=== PATIENT | female | born 1960 | race Caucasian/White ===

== ENCOUNTER 2018-08-11 14:24 | Outpatient (CLI) | payer MEDICARE | END 2018-08-11 14:25 | disposition home or self-care (01) | LOC: BICMAMMO 14:24 | PROVIDERS: ATTEND Family Medicine | DX: Z12.31 Encounter for screening mammogram for malignant neoplasm of breast (principal); R92.1 Mammographic calcification found on diagnostic imaging of breast | CPT/HCPCS: 77063; 77067 ==

== ENCOUNTER 2018-09-14 08:55 | Day surgery (SDC) | payer MEDICARE ==
[2018-09-13 13:06] VITALS: BMI 54.8
[2018-09-14] MEDS ORDERED: Dextrose 50% Abboject 50 ML SYRINGE ONE (10:25)
[2018-09-14 12:58] LABS: #Basophils 0.1 thou/uL (0.0-0.2); #Eosinphils 0.2 thou/uL (0.0-0.7); #Lymphocytes 1.6 thou/uL (1.20-3.40); #Monocytes 1.1 thou/uL (0.11-0.59); #Neutrophils 11.2 thou/uL (1.40-6.50); %Basophils 0.5 % (0.0-1.0); %Eosinophils 1.4 % (0.0-10.0); %Lymphocytes 11.2 % (21.0-51.0); %Monocytes 7.8 % (0.0-10.0); %Neutrophils 79.1 % (42.0-75.0); Hemoglobin 11.6 g/dL (12.0-16.0); Mean Corpuscular HGB CONC 30.3 g/dL (32.0-36.0); Mean Corpuscular Hemoglobin 25.5 pg (27.0-31.0); Mean Corpuscular Volume 84.2 fL (78.0-98.0); Mean Platelet Volume 6.9 fL (7.4-10.4); Platelet Count 240 thou/uL (130-400); RBC Distribution Width 16.1 % (11.5-14.5); Red Blood Cell (RBC) Count 4.55 mill/uL (4.20-5.40); White Blood Cell (WBC) Count 14.2 thou/uL (4.8-10.8)
[2018-09-14 13:08] LABS: Prothrombin Time 13.4 SEC (12.0-14.7)
[2018-09-14 13:21] LABS: ALT (SGPT) 21 U/L (8-55); AST (SGOT) 27 U/L (5-34); Albumin 3.7 g/dL (3.5-5.0); Alkaline Phosphatase 103 U/L (40-150); Anion Gap 15 mmol/L (10-20); BUN (Urea Nitrogen) 13 mg/dL (9.8-20.1); Bilirubin, Total 0.6 mg/dL (0.2-1.2); Calc. Creatinine Clearance 194 mL/min (70-130); Calcium 9.9 mg/dL (7.8-10.44); Carbon Dioxide 31 mmol/L (22-29); Chloride 100 mmol/L (98-107); Estimated GFR-MDRD 89; Globulin 3.5 g/dL (2.4-3.5); Glucose 85 mg/dL (70-105); Potassium 3.6 mmol/L (3.5-5.1); Protein, Total 7.2 g/dL (6.0-8.3); Sodium 142 mmol/L (136-145)
[2018-09-14] MEDS ORDERED: PROPOFOL 200 MG/20 ML VIAL ONE (13:52)
--- NOTE | 2018-09-14 19:04 | OP ---
DATE OF PROCEDURE: 09/14/2018 PREPROCEDURE DIAGNOSES: 1. Chronic reflux. 2. Prior history of colon polyps. Last colonoscopy was 8 years ago. 3. Diabetes. 4. Morbid obesity. POSTPROCEDURE DIAGNOSES: 1. Normal esophagogastroduodenoscopy. 2. Four colon polyps found in the descending and sigmoid colon ranging in size from 4 to 8 mm in size, all removed by hot snare polypectomy. RECOMMENDATIONS: 1. Repeat colonoscopy in 3 years. 2. Await histopathology. 3. Follow up in the office in regard to history of compensated cirrhosis and for hepatoma screening. ANESTHESIA: TIVA. PREP QUALITY: Moderate to just identify polyps greater than 5 mm. DESCRIPTION OF PROCEDURE: The patient was informed of the risks, benefits, and possible complications of endoscopy including perforation, reaction to medication and aspiration, and informed consent was obtained. The patient was brought to the endoscopy suite, where she was sedated in gradual fashion. Once she was comfortable, a bite block was placed into her oropharynx. The endoscope was advanced to the esophagus, stomach, and second and third portion of the duodenum and slowly removed. There was good visualized mucosa. There was no evidence of Key esophagus. There was small hiatal hernia. There was no evidence of esophagitis. The stomach was normal in forward and retroflexed views. The duodenum was normal at third portion. The scope was removed. The patient was turned to the room and rectal exam was performed. The endoscope was advanced through the anal canal through the colon to the cecum, which was identified by ileocecal valve and appendiceal orifice. The prep was fair. About a half a liter of sterile water was used to irrigate and clean the colon of residual liquid debris. The patient's body habitus made sedating the patient difficult and this turn did interfere some with visualization of the colon. Four polyps were identified in the descending to sigmoid colon from 4 to 8 mm in size, all removed by hot snare polypectomy and submitted to Pathology. Retroflexed views in the rectum were normal. The scope was removed. The patient tolerated the procedure well with no complications. Job ID: [id number]
== END 2018-09-14 13:40 | disposition home or self-care (01) ==
LOC: SDC 08:55
PROVIDERS: ATTEND Internal Medicine Gastroenterology
PROC: 0DJ08ZZ Inspection of Upper Intestinal Tract, Via Natural or Artificial Opening Endoscopic (ICD-10-PCS; principal; 2018-09-14)
PROC: 0DBM8ZX Excision of Descending Colon, Via Natural or Artificial Opening Endoscopic, Diagnostic (ICD-10-PCS; 2018-09-14)
PROC: 0DBN8ZX Excision of Sigmoid Colon, Via Natural or Artificial Opening Endoscopic, Diagnostic (ICD-10-PCS; 2018-09-14)
DX: Z12.11 Encounter for screening for malignant neoplasm of colon (principal); D12.4 Benign neoplasm of descending colon; K63.5 Polyp of colon; K21.9 Gastro-esophageal reflux disease without esophagitis; K44.9 Diaphragmatic hernia without obstruction or gangrene; E11.9 Type 2 diabetes mellitus without complications; K74.60 Unspecified cirrhosis of liver; E78.00 Pure hypercholesterolemia, unspecified; E07.9 Disorder of thyroid, unspecified; G89.29 Other chronic pain; M54.9 Dorsalgia, unspecified; M79.606 Pain in leg, unspecified; E66.01 Morbid (severe) obesity due to excess calories; Z68.43 Body mass index [BMI] 50.0-59.9, adult; Z86.010 Personal history of colon polyps; Z87.891 Personal history of nicotine dependence; Z79.4 Long term (current) use of insulin; Z79.899 Other long term (current) drug therapy; Z91.048 Other nonmedicinal substance allergy status
CPT/HCPCS: 36415; 36416; 80053; 82105; 85025; 85610; 88305; J2704

== ENCOUNTER 2018-10-07 09:28 | Outpatient (CLI) | payer MEDICARE ==
--- NOTE | 2018-10-07 11:32 | ULT ---
HEPATIC ULTRASOUND WITH VASCULAR DUPLEX INCLUDING COLOR AND SPECTRAL DOPPLER IMAGING: History: Cirrhosis. FINDINGS: Coarse echogenicity with some minimal surface nodularity that certainly could be consistent with cirr hosis. The gallbladder demonstrates no evidence of gallstones, wall thickening, edema, or pericholecy stic fluid. Common bile duct 0.3 cm. No intrahepatic ductal dilatation. Vascular flow with color and spectral doppler imaging demonstrates antegrade hepatic and portal venou s flow. Spleen is borderline in size. IMPRESSION: Coarse, somewhat nodular liver echogenicity which certainly could be consistent with concern for cirr hosis. No evidence for ascites. Unremarkable portal and hepatic venous flow. POS: TPC
== END 2018-10-07 09:29 | disposition home or self-care (01) ==
LOC: BICULT 09:28
PROVIDERS: ATTEND Internal Medicine Gastroenterology
DX: K74.60 Unspecified cirrhosis of liver (principal); R93.2 Abnormal findings on diagnostic imaging of liver and biliary tract
CPT/HCPCS: 76705

== ENCOUNTER 2019-01-20 23:21 | Inpatient (IN) | payer MEDICARE ==
[2019-01-20] MEDS ORDERED: Nitroglycerin 2% Ointment 1 INCH/1 GM Packet ONE (23:37)
[2019-01-21 01:43] VITALS: BMI 54.2
[2019-01-21 02:42] LABS: Hemoglobin 10.7 g/dL (12.0-16.0); Mean Corpuscular HGB CONC 30.2 g/dL (32.0-36.0); Mean Corpuscular Hemoglobin 24.3 pg (27.0-31.0); Mean Corpuscular Volume 80.6 fL (78.0-98.0); Mean Platelet Volume 8.4 fL (7.4-10.4); Platelet Count 189 thou/uL (130-400); RBC Distribution Width 17.6 % (11.5-14.5); Red Blood Cell (RBC) Count 4.38 mill/uL (4.20-5.40); White Blood Cell (WBC) Count 12.5 thou/uL (4.8-10.8)
[2019-01-21 02:52] LABS: ALT (SGPT) 11 U/L (8-55); AST (SGOT) 18 U/L (5-34); Albumin 3.3 g/dL (3.5-5.0); Alkaline Phosphatase 82 U/L (40-150); Anion Gap 10 mmol/L (10-20); BUN (Urea Nitrogen) 12 mg/dL (9.8-20.1); Bilirubin, Total 0.6 mg/dL (0.2-1.2); CK (CPK) 94 U/L (29-168); Calc. Creatinine Clearance 197 mL/min (70-130); Calcium 9.6 mg/dL (7.8-10.44); Carbon Dioxide 29 mmol/L (22-29); Chloride 106 mmol/L (98-107); Estimated GFR-MDRD Greater than 90; Globulin 2.9 g/dL (2.4-3.5); Glucose 120 mg/dL (70-105); Potassium 3.7 mmol/L (3.5-5.1); Protein, Total 6.2 g/dL (6.0-8.3); Sodium 141 mmol/L (136-145)
[2019-01-21 02:53] LABS: #Eosinphils 0.2 thou/uL (0.0-0.7); #Lymphocytes 1.4 thou/uL (1.20-3.40); #Monocytes 1.1 thou/uL (0.11-0.59); #Neutrophils 9.8 thou/uL (1.40-6.50); %Basophils 0.2 % (0.0-1.0); %Eosinophils 1.3 % (0.0-10.0); %Lymphocytes 11.5 % (21.0-51.0); %Monocytes 8.9 % (0.0-10.0); %Neutrophils 78.1 % (42.0-75.0); Elliptocytes SLIGHT = 2-5 cells (100X) (0-1/hpf); MDiff Complete? YES; Microcytosis SLIGHT = 6-15 cells (100X) (0-5/hpf); Platelet Morphology Comment Appears Adequate; Polychromasia SLIGHT = 2-3 cells (100X) (0-2/hpf)
[2019-01-21 03:07] LABS: Troponin I Less than 0.010 ng/mL (< 0.028)
[2019-01-21] MEDS ORDERED: Nitroglycerin 2% Ointment 1 INCH/1 GM Packet TOP SCH (06:00)
[2019-01-21] MEDS ORDERED: Dextrose 50% Abboject 50 ML SYRINGE SLOW IVP PRN (08:30)
[2019-01-21] MEDS ORDERED: Ondansetron PF 4 MG/2 ML Vial IVP PRN (08:30)
[2019-01-21] MEDS ORDERED: Dextrose 5% in Water 1,000 ML IV PRN (08:30)
[2019-01-21] MEDS ORDERED: hydrALAZINE 20 MG/ML VIAL SLOW IVP PRN (08:30)
[2019-01-21] MEDS ORDERED: Ondansetron ODT 4 MG TAB PO PRN (08:30)
--- NOTE | 2019-01-21 09:26 | HP ---
PRIMARY CARE PROVIDER: [facility] in [place], [place]. CHIEF COMPLAINT: Chest pain. HISTORY OF PRESENT ILLNESS: This is a 58-year-old female, who initially presented to [facility] complaining of chest pain of 1 day duration. The patient states the pain started in the left upper chest wall radiating into the shoulder region of left shoulder and scapula, worsening since onset. The patient denied any recent direct trauma, injury, increased cough, congestion, or fever. The patient denied any known personal history of coronary artery disease, but does state a history of diabetes mellitus type 2 on insulin as well as history of hepatitis C. The patient denied taking any specific alleviating medications without any particular adjustments to her positioning, relieving her symptoms. The patient initially stated the pain was 9/10, sudden in onset and constant. The patient denied any swelling to the left upper extremity, unilateral weakness, recent fever, travel history. In the emergency room, the patient underwent general evaluation including chest imaging showing no acute process. CT angiogram of the chest also was performed showing no evidence for pulmonary embolus with chronic changes in the lung mccarthy noted. The patient received aspirin and transdermal nitroglycerin and was referred to the Hospitalist Service for evaluation. PAST MEDICAL HISTORY: 1. Hepatitis C with compensated cirrhosis. 2. Chronic stress fractures of bilateral hips. 3. History of lower extremity wounds requiring long-term wound care. 4. Diabetes mellitus type 2, insulin requiring. 5. Hypertension. 6. Chronic back pain with spinal stenosis. PAST SURGICAL HISTORY: 1. Status post back surgery. 2. Status post bilateral shoulder repair. 3. Status post left knee repair. 4. Status post hysterectomy. 5. Status post right hip repair. 6. Status post exploratory laparotomy. CURRENT MEDICATIONS: 1. Enteric-coated aspirin 81 mg p.o. q.48 hours. 2. Lasix 40 mg p.o. b.i.d. 3. Neurontin 300 mg p.o. at bedtime. 4. NovoLog insulin sliding scale. 5. Glargine insulin 30 to 45 units subcutaneously b.i.d. 6. Levothyroxine 75 mcg p.o. daily. 7. Metformin 1000 mg p.o. b.i.d. 8. Multivitamin 1 tablet p.o. daily. 9. Klor-Con 20 mEq p.o. at bedtime. 10. Crestor 40 mg p.o. at bedtime. 11. Telmisartan 40 mg p.o. daily. ALLERGIES: TO ADHESIVE TAPE. FAMILY HISTORY: Positive for hypertension and diabetes mellitus. SOCIAL HISTORY: The patient resides in [place], [place]. No tobacco use, but does have a history of remote marijuana use. No alcohol or tobacco. Ambulatory with a rolling walker or wheelchair. REVIEW OF SYSTEMS: CONSTITUTIONAL: Negative for weight loss or gain, ability to conduct usual activities. SKIN: Negative for rash, itching. EYES: Negative for double vision, pain. ENT/MOUTH: Negative for nose bleeding, neck stiffness, pain, tenderness. CARDIOVASCULAR: Negative for palpitations, dyspnea on exertion, orthopnea. RESPIRATORY: Negative for shortness of breath, wheezing, cough, hemoptysis, fever or night sweats. GASTROINTESTINAL: Negative for poor appetite, abdominal pain, heartburn, nausea, vomiting, constipation, or diarrhea. GENITOURINARY: Negative for urgency, frequency, dysuria, nocturia. MUSCULOSKELETAL: Negative for pain, swelling. NEUROLOGIC/PSYCHIATRIC: Negative for anxiety, depression. ALLERGY/IMMUNOLOGIC: Negative for skin rash, bleeding tendency. Otherwise, negative except as stated per HPI. PHYSICAL EXAMINATION: VITAL SIGNS: On admission, blood pressure 171/78, pulse 88, respiratory rate 20, temperature 97.9 degrees Fahrenheit, and O2 saturation 98% on 2 L/minute by nasal cannula. GENERAL APPEARANCE: This is a 58-year-old female, alert and oriented x2, pleasant and in no acute distress. HEENT: Pupils are equal, round, and reactive to light and accommodation. Extraocular muscles are intact. No scleral icterus. No conjunctival injection. Nares are patent. OP is clear. Teeth in fair repair. NECK: Supple. No cervical adenopathy. No thyromegaly. No carotid bruits. No JVD appreciated. Cervical spine with full active and passive range of motion. No meningeal signs noted. CHEST: Diminished breath sounds in the bases bilaterally. Otherwise, clear to auscultation. CARDIOVASCULAR: S1 and S2 without noted murmur, rub, or gallop. ABDOMEN: Obese, soft, nontender, and nondistended. Bowel sounds are positive in all 4 quadrants. No palpable mass. Landmarks are difficult to palpate due to the patient's body habitus. EXTREMITIES: Warm and dry with fair turgor. Mild lymphedema bilaterally to the lower extremities. Pulses palpable distally at the dorsalis pedis, posterior tibial, and popliteal arteries bilaterally. Capillary refill less than 2 seconds. NEUROLOGIC: Cranial nerves II through XII are grossly intact. No gross focal deficits appreciated. The patient not observed ambulatory during this exam. PERTINENT LABORATORY AND X-RAY FINDINGS: Basic metabolic profile within normal limits. LFTs within normal limits. Troponin I negative x2. CBC showed a white blood cell count of 12.5, hemoglobin 11, hematocrit 35, and platelet count 189 with 78% neutrophils. EKG dated 01/20/2019, by my interpretation shows sinus mechanism with heart rates in the 60s. Normal R-wave progression noted in the precordial leads. Normal axis. No acute ST-T wave changes appreciated. ASSESSMENT AND PLAN: 1. Chest pain. The patient will be observed on the telemetry unit. We will proceed with Cardiolite stress testing. Check fasting lipid profile in the a.m. Continue telemetry monitoring. Continue aspirin 325 mg daily. 2. Hypertension. Labile. Resume home antihypertensive regimen and monitor clinical response. Add p.r.n. hydralazine for systolic greater than or equal to 170. 3. Diabetes mellitus, type 2, insulin requiring. We will provide insulin sliding scale for reflexive coverage. Hold long-acting insulin until taking regular ADA diet. Serial Accu-Cheks before meals and at bedtime. 4. Neutrophilic leukocytosis. Appears chronic when reviewing the electronic medical record dating back to 2011. No current evidence to suggest focal infectious process. Repeat CBC in the a.m. 5. Prophylaxis. SCDs while in bed. Pepcid 20 mg p.o. b.i.d. 6. Code status is full. Surrogate medical decision maker is the patient's son. Job ID: [id number]
[2019-01-21] MEDS ORDERED: Regadenoson 0.4 MG/5 ML SYRINGE ONE (11:55)
[2019-01-21] MEDS: Furosemide 40 MG TAB PO SCH ×2 (12:39→15:53)
[2019-01-21] MEDS: Levothyroxine Sodium 75 MCG TAB PO SCH (12:39)
[2019-01-21] MEDS: Aspirin 325 mg Enteric Coated Tablet PO SCH (12:39)
[2019-01-21] MEDS: Famotidine 20 MG TAB PO SCH ×2 (12:39→21:51)
--- NOTE | 2019-01-21 13:46 | NM ---
EXAM: Cardiac SPECT HISTORY: Chest pain PROTOCOL: Stress only, single isotope TYPE OF STRESS: Pharmacologic stress with adenosine was monitored and interpreted by Dr. Galvin. RADIOPHARMACEUTICAL: 33 mCi technetium 99m-sestamibi injected intravenously FINDINGS: Homogeneous tracer distribution is seen in the myocardial segments on the post stress images. Gated SPECT LVEF: 55% Wall motion exam: Normal IMPRESSION: Normal post stress myocardial perfusion scan.
[2019-01-21] MEDS: Acetaminophen 500 MG TAB PO PRN (15:53)
[2019-01-21] MEDS: Potassium Chloride 20 MEQ TAB PO SCH (21:51)
[2019-01-21] MEDS: Rosuvastatin 20 MG TAB PO SCH (21:51)
[2019-01-21] MEDS: Gabapentin 300 MG CAP PO SCH (21:51)
[2019-01-21] MEDS: HumaLOG 300 UNITS/3 ML VIAL SC PRN (21:52)
--- NOTE | 2019-01-21 22:03 | PDOC.EVN ---
Event Note - Event Note Event Note: Nurse called to state patient was short of breath when getting up when trying to dc home, with PO sats in the 80's on RA. DC home cancelled for now, will need to monitor overnight and re-evaluate in the AM and proceed with DC home as appropriate. Will need to get patient up and walk with PO2 monitor.
[2019-01-22] MEDS: HumaLOG 300 UNITS/3 ML VIAL SC PRN ×4 (05:45→20:40)
[2019-01-22 06:18] LABS: Anion Gap 15 mmol/L (10-20); BUN (Urea Nitrogen) 16 mg/dL (9.8-20.1); Calc. Creatinine Clearance 166 mL/min (70-130); Carbon Dioxide 26 mmol/L (22-29); Cardiac Risk 3.8 (Less than 4.5); Chloride 104 mmol/L (98-107); Cholesterol 80 mg/dl (< 200 Desired); Estimated GFR-MDRD 77; Glucose 167 mg/dL (70-105); HDL Cholesterol 21 mg/dL (>60 Neg Risk); LDL Cholesterol, Calculated 30 mg/dL; Potassium 4.2 mmol/L (3.5-5.1); Sodium 141 mmol/L (136-145); Triglycerides 144 mg/dL (Less than 150)
--- NOTE | 2019-01-22 06:25 | DIS ---
DATE OF ADMISSION: 01/21/2019 DATE OF DISCHARGE: 01/21/2019 DISCHARGE DIAGNOSES: 1. Chest pain, noncardiac. 2. Transient sinus bradycardia. 3. Hypertension, stable. 4. Diabetes mellitus type 2, insulin requiring. 5. Morbid obesity. 6. Neutrophilic leukocytosis, chronic. CONSULTATIONS: None. PERTINENT LABORATORY DATA AND X-RAY FINDINGS: Complete metabolic profile within normal limits. CBC showed a white blood cell count of 12.5, hemoglobin 11, hematocrit 35, platelet count 189 with 78% neutrophils. Portable chest x-ray dated 01/20/2019, showed no acute cardiopulmonary process. CT angiogram of the chest dated 01/20/2019, showed no evidence for pulmonary embolus. Diffuse airspace opacities noted. Multiple old rib fractures. Cardiolite stress test dated 01/21/2019, showed no evidence for reversible or fixed ischemia with calculated ejection fraction of 55%. HOSPITAL COURSE: The patient was observed on the telemetry unit after initially presenting with chest pain of approximately 24 hours duration. The patient underwent serial troponin-I, which was negative x3. The patient proceeded to Cardiolite stress testing showing no evidence of reversible or fixed ischemia with calculated ejection fraction of 55%. Telemetry monitoring did show transient sinus bradycardia, resolving spontaneously. Metabolic screening was essentially unremarkable and the patient remained clinically stable and asymptomatic. I have examined the patient at the time of discharge and discussed followup instructions. The patient overall clinically stable and ready for discharge on 01/21/2019. DISCHARGE MEDICATIONS: 1. Aspirin 81 mg p.o. q.48 hours. 2. Lasix 40 mg p.o. b.i.d. 3. Neurontin 300 mg p.o. at bedtime. 4. NovoLog sliding scale with meals. 5. Glargine insulin 30 to 45 units subcutaneously b.i.d. 6. Levothyroxine 75 mcg p.o. daily. 7. Metformin 1000 mg p.o. b.i.d. 8. Multivitamin 1 tablet p.o. daily. 9. Aleve 220 mg one capsule p.o. b.i.d. p.r.n. 10. Klor-Con 20 mEq p.o. at bedtime. 11. Crestor 40 mg p.o. at bedtime. 12. Micardis 40 mg p.o. daily. FOLLOWUP: The patient may follow up with Dr. Alina Rascon within 7 days of discharge. CONDITION ON DISCHARGE: Stable. ACTIVITY: Ad-sindy. DIET: ADA and heart healthy. CODE STATUS: Full. DISPOSITION: Home, 01/21/2019. Job ID: [id number]
[2019-01-22 06:26] LABS: Band 5 % (5-11); Hemoglobin 11.2 g/dL (12.0-16.0); Lymphocytes 13 % (21-51); MDiff Complete? YES; Mean Corpuscular HGB CONC 30.2 g/dL (32.0-36.0); Mean Corpuscular Hemoglobin 24.8 pg (27.0-31.0); Mean Corpuscular Volume 82.1 fL (78.0-98.0); Mean Platelet Volume 9.9 fL (7.4-10.4); Monocytes 1 % (0-10); Neutrophil 81 % (42-75); Platelet Count 147 thou/uL (130-400); Platelet Morphology Comment Appears Adequate; RBC Distribution Width 18.1 % (11.5-14.5); Red Blood Cell (RBC) Count 4.53 mill/uL (4.20-5.40); White Blood Cell (WBC) Count 12.4 thou/uL (4.8-10.8)
[2019-01-22] MEDS: Furosemide 40 MG TAB PO SCH ×2 (09:23→14:34)
[2019-01-22] MEDS: Aspirin 325 mg Enteric Coated Tablet PO SCH (09:23)
[2019-01-22] MEDS: Levothyroxine Sodium 75 MCG TAB PO SCH (09:23)
[2019-01-22] MEDS: Famotidine 20 MG TAB PO SCH ×2 (09:23→20:41)
--- NOTE | 2019-01-22 12:39 | PDOC.PN ---
- Subjective Encounter Start Date: 01/22/19 Encounter Start Time: 10:05 Subjective: f/u for dyspnea and hypoxia noted at the time of anticipated d/c last -: pm. Pt's d/c held due to hypoxia. States some SOB with activity. -: Remains on 2L/min NC> - Objective Resuscitation Status - Order Detail: 01/21/19 08:23 Resuscitation Status Routine Resuscitation Status: FULL: Full Resuscitation MAR Reviewed: Yes Vital Signs & Weight: Vital Signs (12 hours) Temp Pulse Resp BP Pulse Ox 01/22/19 11:50 97.5 F L 65 16 125/59 L 94 L 01/22/19 11:00 97 01/22/19 10:31 95 01/22/19 10:30 87 L 01/22/19 07:35 97.5 F L 72 18 126/62 96 01/22/19 04:00 97.8 F 74 18 145/71 H 94 L Weight Weight 291 lb 11.2 oz I&O: 01/21/19 01/22/19 01/23/19 06:59 06:59 06:59 Intake Total 50 900 Output Total 2100 Balance 50 -1200 Result Diagrams: 01/22/19 04:31 01/22/19 04:31 Additional Labs: Accuchecks 01/22/19 01/22/19 01/21/19 10:45 05:24 21:27 POC Glucose 189 H 212 H 223 H 01/21/19 01/21/19 16:47 12:43 POC Glucose 211 H 197 H Laboratory Tests 01/21/19 02:24 WBC 12.5 H Hgb 10.7 L Neutrophils % 78.1 H Radiology Reviewed by me: Yes (SYSTEMS DEVELOPER - no reversible ischemia, EF 55%) EKG Reviewed by me: Yes (Tele - SR) Phys Exam - Physical Examination Constitutional: NAD HEENT: PERRLA, sclera anicteric, oral pharynx no lesions Neck: no nodes, no JVD, supple, full ROM diminished in bases, scattered coarse sounds Cardiovascular: RRR, no significant murmur, no rub, gallop obese Gastrointestinal: soft, non-tender, no distention, positive bowel sounds Musculoskeletal: pulses present, edema present Neurological: normal sensation, moves all 4 limbs Psychiatric: A&O x 3 Skin: normal turgor, cap refill <2 seconds Dx/Plan (1) Hypoxia Code(s): R09.02 - HYPOXEMIA Status: Acute Comment: ? etiology, ? RAD, trial of Duonebs q4h, assess for home O2 requirement, Prednisone 40mg daily (2) Dyspnea Code(s): R06.00 - DYSPNEA, UNSPECIFIED Status: Acute Comment: Likely multifactorial given morbid obesity and hypoxia, see above for mgmt (3) DM II (diabetes mellitus, type II), controlled Code(s): E11.9 - TYPE 2 DIABETES MELLITUS WITHOUT COMPLICATIONS Status: Chronic Comment: ISS, Resume Lantus 30u SC BID, ADA (4) Neutrophilic leukocytosis Code(s): D72.9 - DISORDER OF WHITE BLOOD CELLS, UNSPECIFIED Status: Acute Comment: ? chronic component (5) Morbid obesity Code(s): E66.01 - MORBID (SEVERE) OBESITY DUE TO EXCESS CALORIES Status: Chronic - Plan social staff worker, out of bed/ambulate, DVT proph w/SCDs Stable currently -: Assess for home O2 need -: Trial Duonebs q4h -: Add Prednisone 40mg daily -: Likely home in 24h * .
[2019-01-22] MEDS ORDERED: predniSONE 20 MG TAB PO SCH (12:45)
[2019-01-22] MEDS: Acetaminophen 500 MG TAB PO PRN (15:12)
[2019-01-22] MEDS: metFORMIN 500 MG TAB PO SCH (17:35)
--- NOTE | 2019-01-22 18:16 | PDOC.EVN ---
Event Note - Event Note Event Note: Pt with persistent hypoxia in the mid-80% range improving with O2 supplementation. Anticipate another 48h to stabilize and considering Pulmonology evaluation to assist with setting up for outpt sleep study. Likely pt's presentation due to obesity hypoventilation syndrome. Continue Duonebs, O2 supplementation, Prednisone, Lasix po. CM assisting with options for home O2.
[2019-01-22] MEDS: Insulin Glargine 30 UNITS in Pre-Filled Syringe 1 EACH SC SCH (20:40)
[2019-01-22] MEDS: Rosuvastatin 20 MG TAB PO SCH (20:41)
[2019-01-22] MEDS: Gabapentin 300 MG CAP PO SCH (20:41)
[2019-01-22] MEDS: Potassium Chloride 20 MEQ TAB PO SCH (20:41)
[2019-01-22] MEDS ORDERED: Non-Formulary Item 1 EACH (Insulin Glargine,Hum.Rec.Anlog [Lantus Solostar] 30 UNIT) SQ SCH (21:00)
[2019-01-22] MEDS ORDERED: Furosemide 40 MG/4 ML VIAL SLOW IVP SCH (21:45)
[2019-01-23] MEDS: HumaLOG 300 UNITS/3 ML VIAL SC PRN ×4 (05:54→21:21)
[2019-01-23] MEDS ORDERED: predniSONE 20 MG TAB PO SCH (08:00)
[2019-01-23] MEDS: Famotidine 20 MG TAB PO SCH ×2 (08:08→21:21)
[2019-01-23] MEDS: Levothyroxine Sodium 75 MCG TAB PO SCH (08:08)
[2019-01-23] MEDS: metFORMIN 500 MG TAB PO SCH ×2 (08:08→17:58)
[2019-01-23] MEDS: Furosemide 40 MG TAB PO SCH (08:09)
[2019-01-23] MEDS: Insulin Glargine 30 UNITS in Pre-Filled Syringe 1 EACH SC SCH ×2 (09:08→21:21)
[2019-01-23] MEDS ORDERED: Furosemide 40 MG/4 ML VIAL SLOW IVP SCH (11:15)
--- NOTE | 2019-01-23 11:29 | PDOC.PN ---
- Subjective Encounter Start Date: 01/23/19 Encounter Start Time: 11:20 Subjective: f/u for dyspnea and hypoxia of unclear etiology. Received IV Lasix -: last pm with diuresis and improvement in respirations. Remains on -: O2 supplementation. - Objective Resuscitation Status - Order Detail: 01/21/19 08:23 Resuscitation Status Routine Resuscitation Status: FULL: Full Resuscitation MAR Reviewed: Yes Vital Signs & Weight: Vital Signs (12 hours) Temp Pulse Resp BP BP Pulse Ox 01/23/19 08:02 90 L 01/23/19 08:00 80 20 90 L 01/23/19 07:29 98.1 F 75 20 164/74 H 94 L 01/23/19 03:01 97.6 F 76 20 134/66 97 01/23/19 03:00 84 L Weight Weight 287 lb 3.2 oz I&O: 01/22/19 01/23/19 01/24/19 06:59 06:59 06:59 Intake Total 900 2224 Output Total 2100 4025 Balance -1200 -1801 Result Diagrams: 01/22/19 04:31 01/22/19 04:31 Additional Labs: Accuchecks 01/23/19 01/22/19 01/22/19 05:51 20:41 16:42 POC Glucose 255 H 296 H 208 H 01/22/19 10:45 POC Glucose 189 H Laboratory Tests 01/21/19 02:24 WBC 12.5 H Hgb 10.7 L Neutrophils % 78.1 H EKG Reviewed by me: Yes (Tele - SR) Phys Exam - Physical Examination Constitutional: NAD HEENT: PERRLA, sclera anicteric, oral pharynx no lesions Neck: no nodes, no JVD, supple, full ROM diminished in bases, few bibasilar crackles Respiratory: no wheezing S1, S2 Cardiovascular: RRR, no significant murmur, no rub, gallop Gastrointestinal: soft, non-tender, no distention, positive bowel sounds Musculoskeletal: pulses present, edema present Neurological: normal sensation, moves all 4 limbs Psychiatric: A&O x 3 Skin: normal turgor, cap refill <2 seconds Dx/Plan (1) Acute respiratory failure with hypoxia Code(s): J96.01 - ACUTE RESPIRATORY FAILURE WITH HYPOXIA Status: Acute Comment: Persistent hypoxia, Suspect multifactorial including cardiac with pulm edema, check 2D echo, IV Lasix, O2 supplementation (2) Dyspnea Code(s): R06.00 - DYSPNEA, UNSPECIFIED Status: Acute Comment: Likely multifactorial given morbid obesity and hypoxia, see above for mgmt (3) DM II (diabetes mellitus, type II), controlled Code(s): E11.9 - TYPE 2 DIABETES MELLITUS WITHOUT COMPLICATIONS Status: Chronic Comment: ISS, Resume Lantus 30u SC BID, ADA (4) Neutrophilic leukocytosis Code(s): D72.9 - DISORDER OF WHITE BLOOD CELLS, UNSPECIFIED Status: Acute Comment: ? chronic component (5) Morbid obesity Code(s): E66.01 - MORBID (SEVERE) OBESITY DUE TO EXCESS CALORIES Status: Chronic - Plan PT/OT, social psychologist, out of bed/ambulate, DVT proph w/SCDs Stable currently -: Continue Lasix 40mg IV BID -: Check 2D echo -: OOB with PT -: Convert to inpt status * AM lab: BMP
[2019-01-23] MEDS: Furosemide 40 MG/4 ML VIAL SLOW IVP SCH (15:04)
[2019-01-23] MEDS: Potassium Chloride 20 MEQ TAB PO SCH (21:20)
[2019-01-23] MEDS: Rosuvastatin 20 MG TAB PO SCH (21:21)
[2019-01-23] MEDS: Gabapentin 300 MG CAP PO SCH (21:21)
[2019-01-23] MEDS: Acetaminophen 500 MG TAB PO PRN (23:30)
[2019-01-24 05:10] LABS: Anion Gap 11 mmol/L (10-20); BUN (Urea Nitrogen) 20 mg/dL (9.8-20.1); Calc. Creatinine Clearance 154 mL/min (70-130); Calcium 8.8 mg/dL (7.8-10.44); Carbon Dioxide 37 mmol/L (22-29); Chloride 100 mmol/L (98-107); Estimated GFR-MDRD 72; Glucose 197 mg/dL (70-105); Potassium 3.8 mmol/L (3.5-5.1); Sodium 144 mmol/L (136-145)
[2019-01-24] MEDS: Furosemide 40 MG/4 ML VIAL SLOW IVP SCH ×2 (05:47→14:55)
[2019-01-24] MEDS ORDERED: predniSONE 20 MG TAB PO SCH (08:00)
[2019-01-24] MEDS: Insulin Glargine 30 UNITS in Pre-Filled Syringe 1 EACH SC SCH ×2 (08:40→21:40)
[2019-01-24] MEDS: HumaLOG 300 UNITS/3 ML VIAL SC PRN (08:41)
[2019-01-24] MEDS: metFORMIN 500 MG TAB PO SCH ×2 (08:43→16:22)
[2019-01-24] MEDS: Famotidine 20 MG TAB PO SCH ×2 (08:44→21:40)
[2019-01-24] MEDS: Levothyroxine Sodium 75 MCG TAB PO SCH (08:44)
[2019-01-24] MEDS ORDERED: Aspirin Chewable 81 MG TAB PO SCH (09:00)
--- NOTE | 2019-01-24 11:03 | PDOC.PN ---
- Subjective Encounter Start Date: 01/24/19 Encounter Start Time: 10:45 Subjective: f/u for hypoxic resp failure receiving O2 and Lasix IV. Echo performed -: with results pending. Feels better overall and continues to diurese -: with Lasix. Weight down approx 3lbs. - Objective Resuscitation Status - Order Detail: 01/21/19 08:23 Resuscitation Status Routine Resuscitation Status: FULL: Full Resuscitation MAR Reviewed: Yes Vital Signs & Weight: Vital Signs (12 hours) Temp Pulse Resp BP Pulse Ox 01/24/19 10:50 76 16 94 L 01/24/19 08:00 97.5 F L 78 20 147/73 H 93 L 01/24/19 06:39 90 L 01/24/19 06:35 85 16 90 L 01/24/19 03:45 97.6 F 75 20 155/77 H 98 01/24/19 00:10 97 Weight Weight 289 lb 1.6 oz I&O: 01/23/19 01/24/19 01/25/19 06:59 06:59 06:59 Intake Total 2224 1130 240 Output Total 4025 3050 Balance -1801 -1920 240 Result Diagrams: 01/22/19 04:31 01/24/19 04:29 Additional Labs: Accuchecks 01/24/19 01/23/19 01/23/19 05:15 20:40 16:51 POC Glucose 223 H 279 H 252 H 01/23/19 10:47 POC Glucose 179 H Laboratory Tests 01/21/19 02:24 WBC 12.5 H Hgb 10.7 L Neutrophils % 78.1 H Radiology Reviewed by me: Yes (2D echo - pending) EKG Reviewed by me: Yes (Tele - SR) Phys Exam - Physical Examination Constitutional: NAD HEENT: PERRLA, sclera anicteric, oral pharynx no lesions Neck: no nodes, no JVD, supple, full ROM diminished in bases Respiratory: no wheezing S1, S2 Cardiovascular: RRR, no significant murmur, no rub, gallop obese Gastrointestinal: soft, non-tender, no distention, positive bowel sounds Musculoskeletal: pulses present, edema present Neurological: normal sensation, moves all 4 limbs Psychiatric: A&O x 3 Skin: normal turgor, cap refill <2 seconds Dx/Plan (1) Acute respiratory failure with hypoxia Code(s): J96.01 - ACUTE RESPIRATORY FAILURE WITH HYPOXIA Status: Acute Comment: Persistent hypoxia, Suspect multifactorial including cardiac with pulm edema, check 2D echo, IV Lasix, O2 supplementation (2) Dyspnea Code(s): R06.00 - DYSPNEA, UNSPECIFIED Status: Acute Comment: Likely multifactorial given morbid obesity and hypoxia, see above for mgmt (3) DM II (diabetes mellitus, type II), controlled Code(s): E11.9 - TYPE 2 DIABETES MELLITUS WITHOUT COMPLICATIONS Status: Chronic Comment: ISS, Resume Lantus 30u SC BID, ADA (4) Neutrophilic leukocytosis Code(s): D72.9 - DISORDER OF WHITE BLOOD CELLS, UNSPECIFIED Status: Acute Comment: ? chronic component (5) Morbid obesity Code(s): E66.01 - MORBID (SEVERE) OBESITY DUE TO EXCESS CALORIES Status: Chronic - Plan PT/OT, social welfare clerk, respiratory therapy, out of bed/ambulate Stable currently -: Await final results from 2D echo -: Continue Lasix IV another 24h -: Decrease Prednisone 10mg daily -: Continue Duonebs * AM lab: BMP * CM for home O2 setup * Likely home in am 01/25/19
[2019-01-24] MEDS: Rosuvastatin 20 MG TAB PO SCH (21:39)
[2019-01-24] MEDS: Potassium Chloride 20 MEQ TAB PO SCH (21:39)
[2019-01-24] MEDS: Gabapentin 300 MG CAP PO SCH (21:40)
[2019-01-25] MEDS: Acetaminophen 500 MG TAB PO PRN (02:38)
[2019-01-25 05:25] LABS: BUN (Urea Nitrogen) 19 mg/dL (9.8-20.1); Calc. Creatinine Clearance 169 mL/min (70-130); Calcium 9.1 mg/dL (7.8-10.44); Estimated GFR-MDRD 79; Glucose 120 mg/dL (70-105)
[2019-01-25 05:35] LABS: Anion Gap 14 mmol/L (10-20); Carbon Dioxide 33 mmol/L (22-29); Chloride 97 mmol/L (98-107); Potassium 4.1 mmol/L (3.5-5.1); Sodium 140 mmol/L (136-145)
[2019-01-25] MEDS: Furosemide 40 MG/4 ML VIAL SLOW IVP SCH ×2 (05:50→15:35)
[2019-01-25] MEDS ORDERED: predniSONE 20 MG TAB PO SCH (08:00)
[2019-01-25] MEDS: Famotidine 20 MG TAB PO SCH ×2 (08:24→20:15)
[2019-01-25] MEDS: metFORMIN 500 MG TAB PO SCH ×2 (08:24→17:56)
[2019-01-25] MEDS: Levothyroxine Sodium 75 MCG TAB PO SCH (08:24)
[2019-01-25] MEDS: Insulin Glargine 30 UNITS in Pre-Filled Syringe 1 EACH SC SCH (08:38)
--- NOTE | 2019-01-25 13:00 | PDOC.PN ---
- Subjective Encounter Start Date: 01/25/19 Encounter Start Time: 11:30 Mr. Jurado was seen today in follow-up of dyspnea. She says she is breathing better today. Her oxygen saturations will still drop from time to time. - Objective Resuscitation Status - Order Detail: 01/21/19 08:23 Resuscitation Status Routine Resuscitation Status: FULL: Full Resuscitation MAR Reviewed: Yes Vital Signs & Weight: Vital Signs (12 hours) Temp Pulse Resp BP BP Pulse Ox 01/25/19 11:37 97.6 F 66 20 163/77 H 98 01/25/19 10:32 88 16 95 01/25/19 08:00 97.6 F 77 18 129/86 88 L 01/25/19 06:54 72 16 93 L 01/25/19 03:36 97.2 F L 65 20 131/65 98 Weight Weight 290 lb 11.2 oz I&O: 01/24/19 01/25/19 01/26/19 06:59 06:59 06:59 Intake Total 1130 1740 580 Output Total 3050 3500 Balance -1920 -1760 580 Result Diagrams: 01/22/19 04:31 01/25/19 04:38 Additional Labs: Accuchecks 01/25/19 01/25/19 01/24/19 10:35 05:40 20:07 POC Glucose 113 H 141 H 217 H 01/24/19 18:22 POC Glucose 219 H Phys Exam - Physical Examination HEENT: PERRLA Respiratory: no wheezing, no rales, no rhonchi, clear to auscultation bilateral Cardiovascular: RRR, no significant murmur, no rub Gastrointestinal: soft, non-tender, no distention, positive bowel sounds Musculoskeletal: no edema, pulses present Dx/Plan (1) Acute respiratory failure with hypoxia Code(s): J96.01 - ACUTE RESPIRATORY FAILURE WITH HYPOXIA Status: Acute Comment: Persistent hypoxia, Suspect multifactorial including cardiac with pulm edema, check 2D echo, IV Lasix, O2 supplementation (2) DM II (diabetes mellitus, type II), controlled Code(s): E11.9 - TYPE 2 DIABETES MELLITUS WITHOUT COMPLICATIONS Status: Chronic Comment: ISS, Resume Lantus 30u SC BID, ADA (3) Morbid obesity Code(s): E66.01 - MORBID (SEVERE) OBESITY DUE TO EXCESS CALORIES Status: Chronic - Plan * Acute hypoxic respiratory failure- improved after diureses however she continues to have some dyspnea, with low O2 saturations * HTN- blood pressure is controlled- continue Micardis * DM- blood glucose is stable * Morbid Obesity- I suspect she has some undiagnosed sleep apnea which is contributing to her dyspnea, and volume overload. I have recommended that she have an outpatient Sleep study * Home once home oxygen is arranged( her O2 saturations on Room air dropped to 86%)
[2019-01-25] MEDS: Potassium Chloride 20 MEQ TAB PO SCH (20:14)
[2019-01-25] MEDS: Rosuvastatin 20 MG TAB PO SCH (20:14)
[2019-01-25] MEDS: Gabapentin 300 MG CAP PO SCH (20:15)
[2019-01-25 20:23] VITALS: BP 139/66; TEMP 97.9
--- NOTE | 2019-01-26 09:37 | DIS ---
DATE OF ADMISSION: 01/23/2019 DATE OF DISCHARGE: 01/25/2019 PRIMARY CARE PHYSICIAN: Karlos Laguna in [place]. DISCHARGE DISPOSITION: Home. PRIMARY DISCHARGE DIAGNOSES: 1. Acute respiratory failure with hypoxemia. 2. Hypertension. 3. Diabetes mellitus. 4. Morbid obesity. 5. Probable obstructive sleep apnea or obesity hypoventilation syndrome. DISCHARGE MEDICATIONS: Include: 1. Micardis 40 mg daily. 2. Crestor 40 mg at bedtime. 3. Klor-Con 20 mEq at bedtime. 4. Aleve 220 mg twice daily. 5. Multivitamin once a day. 6. Metformin 1000 mg twice daily. 7. Levothyroxine 75 mcg daily. 8. Lantus insulin 30 to 45 units subcu daily. 9. Neurontin 300 mg at bedtime. 10. Furosemide 40 mg twice a day. 11. Aspirin 81 mg every other day. TESTS DURING THE HOSPITALIZATION: The patient had a nuclear stress test, which was negative for any reversible ischemia. The patient also had a CT angiogram of the chest, there was no evidence of any pulmonary embolism. However, there was some mild pulmonary vascular congestion. The patient also had an echocardiogram in which the ejection fraction was estimated at 55% to 60%. There was some mild concentric left ventricular hypertrophy. No significant valvular disease. CODE STATUS: Full code. ALLERGIES: TO ADHESIVE. HOSPITAL COURSE: Ms. Jurado is a pleasant 58-year-old female who presented to the emergency room, complaining of difficulty breathing as well as chest pain. She was evaluated in the emergency room and had a CT angiogram of the chest. This was negative for pulmonary embolism. She was placed in observation and ruled out, and a nuclear stress test was obtained, which was also negative. The plan was for her to go home following the stress test; however, the patient continued to complain of dyspnea. For this reason, she was placed on IV Lasix due to mild volume overload, and she improved over the course of the next couple of days. An echocardiogram was also obtained, which demonstrated normal ejection fraction, and it was suspected that the patient's symptoms of shortness of breath is likely due at least in part to her body habitus. Her BMI was greater than 50, and I suspect she likely has some degree of obesity hypoventilation syndrome. She was counseled on the need to have an outpatient sleep study done, and she is agreeable to this. She also had some hypoxemia on room air, and therefore, home oxygen will be arranged prior to discharge. Job ID: [id number]
== END 2019-01-25 20:41 | disposition home or self-care (01) | DRG 189 ==
LOC: ERS 23:21 → 2SW 01-21 01:28 → OBSVTOIN 01-23 11:22 → 2NO 01-23 13:54
PROVIDERS: ADMIT Hospitalist; ATTEND Hospitalist
DX: J96.01 Acute respiratory failure with hypoxia (principal); J81.1 Chronic pulmonary edema; Z68.43 Body mass index [BMI] 50.0-59.9, adult; R07.89 Other chest pain; E11.9 Type 2 diabetes mellitus without complications; B19.20 Unspecified viral hepatitis C without hepatic coma; I10 Essential (primary) hypertension; M48.00 Spinal stenosis, site unspecified; D72.828 Other elevated white blood cell count; R00.1 Bradycardia, unspecified; E66.01 Morbid (severe) obesity due to excess calories; E87.70 Fluid overload, unspecified; Z79.899 Other long term (current) drug therapy; Z90.710 Acquired absence of both cervix and uterus; Z79.84 Long term (current) use of oral hypoglycemic drugs; Z79.82 Long term (current) use of aspirin
CPT/HCPCS: 36415; 36416; 78452; 80048; 80061; 82550; 84484; 85007; 85027; 93005; 93017; 93306; 94640; 94760; A9500; J0360; J1825; J1940; J7512; J7620

== ENCOUNTER 2019-04-08 19:30 | Outpatient (CLI) | payer MEDICARE | END 2019-04-08 19:31 | disposition home or self-care (01) | LOC: SLEEPLAB 19:30 | PROVIDERS: ATTEND Family Medicine | DX: G47.33 Obstructive sleep apnea (adult) (pediatric) (principal); K21.9 Gastro-esophageal reflux disease without esophagitis; E66.9 Obesity, unspecified; I10 Essential (primary) hypertension; E11.9 Type 2 diabetes mellitus without complications; I25.10 Atherosclerotic heart disease of native coronary artery without angina pectoris; R06.83 Snoring; R09.02 Hypoxemia; Z68.43 Body mass index [BMI] 50.0-59.9, adult | CPT/HCPCS: 95811 ==

== ENCOUNTER 2019-05-23 15:20 | Inpatient (IN) | payer MEDICARE ==
[2019-05-23 17:31] LABS: Troponin I 0.017 ng/mL (< 0.028)
[2019-05-23] MEDS ORDERED: Aspirin Chewable 81 MG TAB ONE (17:43)
[2019-05-23] MEDS ORDERED: Acetaminophen 325 MG TAB PO PRN (20:00)
[2019-05-23] MEDS ORDERED: Ondansetron ODT 4 MG TAB SL PRN (20:00)
[2019-05-23] MEDS ORDERED: HYDROcodone/Acetaminophen 5/325 mg Tablet PO PRN ×2 (20:00)
[2019-05-23] MEDS ORDERED: Ondansetron PF 4 MG/2 ML Vial IVP PRN (20:00)
[2019-05-23 20:07] LABS: Troponin I 0.032 ng/mL (< 0.028)
[2019-05-23] MEDS ORDERED: Dextrose 5% in Water 1,000 ML IV PRN (21:07)
[2019-05-23] MEDS ORDERED: Dextrose 50% Abboject 50 ML SYRINGE SLOW IVP PRN (21:07)
[2019-05-23 21:47] VITALS: BMI 50.5
--- NOTE | 2019-05-23 22:23 | HP ---
PRIMARY CARE DOCTOR: Alina Rascon MD CODE STATUS: Full code. TIME OF EVALUATION: 8:50 p.m. CHIEF COMPLAINT: Weakness. HISTORY OF PRESENT ILLNESS: This is a 58-year-old female patient with past medical history of multiple comorbidities, including morbid obesity, lymphedema, hypothyroidism, hep C, frequent staph infections, diabetes type 2, and hypertension. She came to the hospital after having nosebleed. The symptoms started around midnight. The patient went to [facility] at 11:00 a.m. and she was still bleeding, having difficulty to resolve the bleeding. Hemoglobin was 8.6, which was new when compared to the old ones. Troponin was mildly elevated at 0.038. By the time of my examination, the symptoms have improved. She reported that she had been in home oxygen nasal cannula with no humidifier until the couple of days ago. After she started using the humidifier, the symptoms got better, however, she started bleeding again and she was unable to stop the symptoms. Of note, she has been recommended to go for sleep studies and she is on schedule for it. REVIEW OF SYSTEMS: All other systems were reviewed and negative except for the findings mentioned above. PAST MEDICAL HISTORY: Positive for hypothyroidism, lymphedema in bilateral legs, hep C, stress fracture of bilateral hips, diabetes type 2, hypertension, and obesity. PAST SURGICAL HISTORY: Back surgery, orthopedic surgery, bilateral shoulders, hysterectomy, orthopedic surgery and right hip surgery. PSYCHIATRIC HISTORY: No previous psych history. SOCIAL HISTORY: No smoking history. The patient denies alcohol use. Former drug user, abused marijuana years ago. FAMILY HISTORY: No significant family history. KNOWN ALLERGIES: No known drug allergies. REPORTED MEDICATIONS: Aspirin, Crestor, K-Dur, gabapentin, levothyroxine, telmisartan, Levemir, metformin and furosemide. PHYSICAL EXAMINATION: VITAL SIGNS: On presentation, blood pressure 146/102 with heart rate 84, respiratory rate was 20, temperature 98.2, pain was 8/10 and oxygen saturation was 99% on room air. GENERAL APPEARANCE: The patient is morbidly obese. The patient having some clots in her anterior nostrils. HEENT: Eyes, normal conjunctivae. Moist oral mucosa. As described above, the patient has some clots in the anterior part of the nostrils. RESPIRATORY: Bilateral air entry. No rales. No wheezes. Symmetric expansion. CARDIOVASCULAR: Normal rate, regular rhythm. No murmurs. No gallop. No edema. ABDOMEN: Soft. Normal bowel sounds. MUSCULOSKELETAL: Baseline range of motion and strength. SKIN: The patient has bilateral lymphedema. NEURO: No evidence of any new focal weakness. Cranial nerves seems to be intact. PSYCH: The patient is in good mood. No anxiety. Optimal judgment. DIAGNOSTIC DATA: EKG, the patient has normal sinus rhythm with a rate of 82 with nonspecific acute ischemic findings. Chest x-ray was done. The patient had no evidence of acute cardiopulmonary disease. Hip x-ray was done, no evidence of acute osseus abnormalities. LABORATORY DATA: Labs were done. White count 14.7, hemoglobin 8.6, MCV 84.7, platelet count 178. Chemistry; potassium 4.0, sodium 142, anion gap 16, BUN 32, creatinine 0.7, GFR 81, glucose 165. LFTs were negative. Troponin 0.032. Albumin 3.4. ASSESSMENT AND PLAN: The patient will be placed in the hospital with following medical problems: 1. Epistaxis. At this point seems to be related to use of oxygen for a couple of weeks with no air humidifier. This problem will need to be corrected, although patient reported over the past few days, she has been using it. Might need ENT consult if the symptoms do not improve overnight. We will monitor hemoglobin, make sure there is no other significant bleeding. 2. Morbidly obese, advised to lose weight. 3. Possible obesity hypoventilation syndrome. The patient is morbidly obese. She has been offered sleep studies in the past. Definitely, she will need to lose weight. We will continue with oxygen support with humidifiers. If needed, we can put a regular mask instead of the nasal cannula. 4. Acute blood loss anemia. The patient has a hemoglobin of 8.6, previously was around 12. We will continue to monitor hemoglobin. If the drop in hemoglobin is significant, the patient might need transfusion. 5. Leukocytosis. White count 14.7. No evidence of acute infection. We will monitor and treat depending on the patient's clinical course. 6. Uncontrolled diabetes, blood sugar 165. Reconcile home medication. We will place the patient on sliding scale for optimal control. 7. Mildly elevated troponin of 0.032. So this now is not clinically significant, we will repeat troponin and see its trend. 8. Deep venous thrombosis prophylaxis. The patient unable to use SCDs. The patient is bleeding, unable to use heparin. 9. Hypothyroidism, continue hormone replacement. 10. Uncontrolled hypertension on presentation with systolic blood pressure up to 176 occasionally. Reconcile home medications and adjust treatment as needed. Job ID: [id number]
[2019-05-23 23:20] LABS: Troponin I 0.042 ng/mL (< 0.028)
[2019-05-24 03:06] LABS: #Eosinphils 0.1 thou/uL (0.0-0.7); #Lymphocytes 1.5 thou/uL (1.20-3.40); #Monocytes 0.9 thou/uL (0.11-0.59); %Basophils 0.3 % (0.0-1.0); %Eosinophils 1.1 % (0.0-10.0); %Monocytes 7.7 % (0.0-10.0); %Neutrophils 77.8 % (42.0-75.0); Hemoglobin 8.3 g/dL (12.0-16.0); Mean Corpuscular Hemoglobin 27.7 pg (27.0-31.0); Mean Corpuscular Volume 86.5 fL (78.0-98.0); Mean Platelet Volume 7.3 fL (7.4-10.4); Platelet Count 176 thou/uL (130-400); RBC Distribution Width 16.1 % (11.5-14.5); Red Blood Cell (RBC) Count 3.01 mill/uL (4.20-5.40); White Blood Cell (WBC) Count 11.6 thou/uL (4.8-10.8)
[2019-05-24 03:28] LABS: Anion Gap 10 mmol/L (10-20); BUN (Urea Nitrogen) 30 mg/dL (9.8-20.1); Calc. Creatinine Clearance 152 mL/min (70-130); Calcium 9.5 mg/dL (7.8-10.44); Carbon Dioxide 33 mmol/L (22-29); Chloride 102 mmol/L (98-107); Estimated GFR-MDRD 77; Glucose 126 mg/dL (70-105); Potassium 3.6 mmol/L (3.5-5.1); Sodium 141 mmol/L (136-145)
[2019-05-24] MEDS: Levothyroxine Sodium 75 MCG TAB PO SCH (05:05)
[2019-05-24] MEDS: Furosemide 40 MG TAB PO SCH ×2 (08:37→20:38)
[2019-05-24] MEDS: Multivit, Therapeutic 1 TAB PO SCH (08:37)
[2019-05-24] MEDS: Losartan 25 MG TAB PO SCH (08:37)
[2019-05-24] MEDS: Naproxen 500 MG TAB PO PRN (08:38)
[2019-05-24] MEDS: Insulin Glargine 30 UNITS in Pre-Filled Syringe 1 EACH SC SCH ×2 (08:54→20:38)
[2019-05-24] MEDS ORDERED: Non-Formulary Item 1 EACH (Insulin Glargine,Hum.Rec.Anlog [Lantus Solostar] 30 UNIT) SQ SCH (09:00)
[2019-05-24] MEDS: HumaLOG 300 UNITS/3 ML VIAL SC PRN ×2 (11:55→17:30)
--- NOTE | 2019-05-24 13:29 | PDOC.HOSPP ---
- Subjective Encounter Date: 05/24/19 Encounter Time: 09:00 Subjective: no further bleeding from nose is tolerating humidified nasal canula she does amb min in house is awaiting setting up of bipap at her home (has severe SANDI on recent sleep study) - Objective Vital Signs & Weight: Vital Signs (12 hours) Temp Pulse Resp BP Pulse Ox 05/24/19 11:35 97.1 F L 76 20 159/72 H 98 05/24/19 07:45 97.6 F 70 18 158/74 H 98 05/24/19 04:00 97.3 F L 73 18 149/67 H 98 05/24/19 02:45 72 138/63 Weight Weight 267 lb 6 oz I&O: 05/23/19 05/24/19 05/25/19 06:59 06:59 06:59 Intake Total 960 Output Total 1075 Balance -115 Result Diagrams: 05/24/19 02:56 05/24/19 02:56 Additional Labs: Accuchecks 05/24/19 05/24/19 05/23/19 11:23 05:40 21:42 POC Glucose 260 H 159 H 156 H Hospitalist ROS - Medication Medications: Active Medications Generic Name Dose Route Start Last Admin Trade Name Freq PRN Reason Stop Dose Admin Furosemide 40 mg 05/24/19 09:00 05/24/19 08:37 Lasix PO 40 mg BID GAETANO Administration Insulin Glargine 30 units/ 0.3 mls @ 0 mls/hr 05/24/19 09:00 05/24/19 08:54 Miscellaneous Medication SC 0.3 mls BID GAETANO Administration Insulin Human Lispro 0 units 05/23/19 21:07 05/24/19 11:55 Humalog SC 4 unit .MILD SLIDING SCALE PRN Administration Mild Correctional Scale Levothyroxine Sodium 75 mcg 05/24/19 06:00 05/24/19 05:05 Synthroid PO 75 mcg 0600 GAETANO Administration Losartan Potassium 50 mg 05/24/19 09:00 05/24/19 08:37 Cozaar PO 50 mg DAILY GAETANO Administration Multivitamins 1 tab 05/24/19 09:00 05/24/19 08:37 Theragran PO 1 tab DAILY GAETANO Administration Naproxen 250 mg 05/24/19 09:00 05/24/19 08:38 Naprosyn PO 250 mg BID PRN Administration Pain - Exam General Appearance: awake alert Eye: PERRL, anicteric sclera ENT: no oropharyngeal lesions, dry oral mucosa ENT - other findings: dried crusts of blood in both alae Neck: supple, no JVD Heart: RRR, no murmur Respiratory: no wheezes, no rales Gastrointestinal: soft, non-tender, normal bowel sounds Extremities: no cyanosis, no edema Neurological: cranial nerve grossly intact, no focal deficits Psychiatric: normal affect, A&O x 3 Hosp A/P (1) Epistaxis Code(s): R04.0 - EPISTAXIS Status: Acute (2) SANDI (obstructive sleep apnea) Code(s): G47.33 - OBSTRUCTIVE SLEEP APNEA (ADULT) (PEDIATRIC) Status: Chronic (3) ANALY (acute kidney injury) Code(s): N17.9 - ACUTE KIDNEY FAILURE, UNSPECIFIED Status: Acute (4) Acute blood loss anemia Code(s): D62 - ACUTE POSTHEMORRHAGIC ANEMIA Status: Acute (5) Hypothyroidism Code(s): E03.9 - HYPOTHYROIDISM, UNSPECIFIED Status: Chronic Qualifiers: Hypothyroidism type: unspecified Qualified Code(s): E03.9 - Hypothyroidism , unspecified (6) Hepatitis C Code(s): B19.20 - UNSPECIFIED VIRAL HEPATITIS C WITHOUT HEPATIC COMA Status: Chronic Qualifiers: Viral hepatitis chronicity: chronic Hepatic coma status: without hepatic coma Qualified Code(s): B18.2 - Chronic viral hepatitis C (7) DM II (diabetes mellitus, type II), controlled Code(s): E11.9 - TYPE 2 DIABETES MELLITUS WITHOUT COMPLICATIONS Status: Chronic Qualifiers: Diabetes mellitus machine long goods helper insulin use: with snf use Diabetes mellitus complication status: with unspecified complications Qualified Code(s) : E11.8 - Type 2 diabetes mellitus with unspecified complications; Z79.4 - longterm (current) use of insulin (8) Morbid obesity Code(s): E66.01 - MORBID (SEVERE) OBESITY DUE TO EXCESS CALORIES Status: Chronic - Plan cbc in am, current Hb around 8g, will transfuse if Hb drops to less than 7g dc plan in am if stable if she bleeds again, will get ent consultation continue lasix, lantus synthroid, crestor, telmisartan and metformin PT to mobilize as tolerated bipap at night prior echo 12/2018 showed ef of 55% with lvh tx to medical floor
[2019-05-24] MEDS ORDERED: Potassium Chloride 20 MEQ TAB PO SCH (21:00)
[2019-05-24] MEDS ORDERED: Rosuvastatin 20 MG TAB PO SCH (21:00)
[2019-05-24] MEDS ORDERED: Gabapentin 300 MG CAP PO SCH (21:00)
[2019-05-25] MEDS: Naproxen 500 MG TAB PO PRN (00:23)
[2019-05-25 05:04] LABS: #Eosinphils 0.1 thou/uL (0.0-0.7); #Lymphocytes 1.3 thou/uL (1.20-3.40); #Neutrophils 8.3 thou/uL (1.40-6.50); %Basophils 0.3 % (0.0-1.0); %Eosinophils 1.4 % (0.0-10.0); %Lymphocytes 12.3 % (21.0-51.0); %Neutrophils 77.1 % (42.0-75.0); Hemoglobin 7.5 g/dL (12.0-16.0); Mean Corpuscular HGB CONC 30.8 g/dL (32.0-36.0); Mean Corpuscular Volume 87.7 fL (78.0-98.0); Mean Platelet Volume 7.6 fL (7.4-10.4); Platelet Count 174 thou/uL (130-400); RBC Distribution Width 16.1 % (11.5-14.5); Red Blood Cell (RBC) Count 2.79 mill/uL (4.20-5.40); White Blood Cell (WBC) Count 10.8 thou/uL (4.8-10.8)
[2019-05-25] MEDS: Levothyroxine Sodium 75 MCG TAB PO SCH (05:35)
[2019-05-25 06:06] LABS: Anion Gap 12 mmol/L (10-20); BUN (Urea Nitrogen) 24 mg/dL (9.8-20.1); Calc. Creatinine Clearance 157 mL/min (70-130); Calcium 8.7 mg/dL (7.8-10.44); Carbon Dioxide 30 mmol/L (22-29); Chloride 101 mmol/L (98-107); Estimated GFR-MDRD 79; Glucose 205 mg/dL (70-105); Potassium 4.1 mmol/L (3.5-5.1); Sodium 139 mmol/L (136-145)
[2019-05-25] MEDS: Furosemide 40 MG TAB PO SCH (08:16)
[2019-05-25] MEDS: HumaLOG 300 UNITS/3 ML VIAL SC PRN ×2 (08:16→11:31)
[2019-05-25] MEDS: Multivit, Therapeutic 1 TAB PO SCH (08:16)
[2019-05-25] MEDS: Losartan 25 MG TAB PO SCH (08:16)
[2019-05-25] MEDS: Insulin Glargine 30 UNITS in Pre-Filled Syringe 1 EACH SC SCH (08:40)
[2019-05-25 14:22] VITALS: BP 119/58; TEMP 97.3
--- NOTE | 2019-05-25 17:23 | DIS ---
DATE OF ADMISSION: 05/23/2019 DATE OF DISCHARGE: 05/25/2019 DISCHARGE DISPOSITION: Home. PRIMARY DISCHARGE DIAGNOSIS: Severe epistaxis with acute blood loss anemia, stable. SECONDARY DISCHARGE DIAGNOSES: Sleep apnea, diabetes mellitus type 2, chronic hepatitis C, morbid obesity, hypothyroidism, hypertension, acute kidney injury on arrival, resolving. PROCEDURES DONE DURING HOSPITALIZATION: H and H on the day of discharge 7.5 and 24.5. Admitting H and H were 8.6 and 27, platelet count is 174 on the day of discharge, MCV is 87. PT/INR, PTT within normal limits. Discharge BUN and creatinine are 24 and 0.7. BNP 58. Admitting BUN and creatinine were 30 and 0.7. Left hip two view x-ray done showed no acute osseous abnormality. Chest x-ray done showed no acute cardiopulmonary abnormality. DISCHARGE MEDICATION: 1. Lasix 40 mg twice daily. 2. Neurontin 300 mg p.o. at bedtime. 3. Lantus 30 units subcu twice daily. 4. Levothyroxine 75 mcg p.o. daily. 5. Metformin 1000 mg p.o. twice daily. 6. Multivitamin one tablet once daily. 7. Naprosyn 220 mg p.o. twice daily p.r.n. 8. K-Dur 20 mEq p.o. at bedtime. 9. Crestor 40 mg p.o. at bedtime. 10. Telmisartan 40 mg p.o. daily. 11. Ferrous sulfate 325 mg p.o. daily. ALLERGIES: TO ADHESIVES. DISCHARGE PLAN: The patient to follow up with her primary care physician in 1 week. She needs to follow up with Dr. Zach Fink, ENT surgeon today at 3:00 p.m. BRIEF COURSE DURING HOSPITALIZATION: The patient initially got admitted on the with complaints of nasal bleed/epistaxis. Her initial hemoglobin was 8. The patient was on aspirin. She was also on oxygen at home, which was not humidified. In view of this history, she was admitted to telemetry for close monitoring. She has had serial H and H done, which has remained above 7 g with discharge hemoglobin of 7.5 g. The patient did not have any active bleeding during her brief stay here. We have set up outpatient appointment for her to see Dr. Zach Fink today at 3 p.m. The patient also is awaiting her new CPAP machine for severe sleep apnea. She was counseled with regards to weight loss and healthy eating. She is otherwise hemodynamically stable and will be shortly discharged home. Please note, I have seen and examined the patient on the day of discharge. Also her aspirin was held in view of hemoglobin dropping down to 7.5 g. Job ID: [id number]
== END 2019-05-25 13:30 | disposition home or self-care (01) | DRG 812 ==
LOC: ERS 15:20 → 2NO 20:00
PROVIDERS: ADMIT Internal Medicine; ATTEND Internal Medicine
DX: D62 Acute posthemorrhagic anemia (principal); Z68.43 Body mass index [BMI] 50.0-59.9, adult; N17.9 Acute kidney failure, unspecified; R04.0 Epistaxis; I10 Essential (primary) hypertension; E66.01 Morbid (severe) obesity due to excess calories; E03.9 Hypothyroidism, unspecified; E11.9 Type 2 diabetes mellitus without complications; I89.0 Lymphedema, not elsewhere classified; E11.65 Type 2 diabetes mellitus with hyperglycemia; B18.2 Chronic viral hepatitis C; G47.33 Obstructive sleep apnea (adult) (pediatric); R79.89 Other specified abnormal findings of blood chemistry; Z79.4 Long term (current) use of insulin; Z90.710 Acquired absence of both cervix and uterus; Z79.82 Long term (current) use of aspirin; Z79.899 Other long term (current) drug therapy
CPT/HCPCS: 36415; 36416; 80048; 85025; 93005; J1815

== ENCOUNTER 2019-06-30 15:02 | Observation (INO) | payer MEDICARE ==
[~2019-06-30 15:02] MED LIST: ISOVUE-370 76%-LOCM 1 ML ONE
[2019-06-30] MEDS ORDERED: Nitroglycerin 2% Ointment 1 INCH/1 GM Packet ONE (15:47)
[2019-06-30 15:50] LABS: #Eosinphils 0.1 thou/uL (0.0-0.7); #Lymphocytes 1.4 thou/uL (1.20-3.40); #Neutrophils 9.4 thou/uL (1.40-6.50); %Basophils 0.2 % (0.0-1.0); %Eosinophils 1.1 % (0.0-10.0); %Lymphocytes 11.5 % (21.0-51.0); %Monocytes 8.2 % (0.0-10.0); %Neutrophils 79.1 % (42.0-75.0); Hemoglobin 9.6 g/dL (12.0-16.0); Mean Corpuscular HGB CONC 31.1 g/dL (32.0-36.0); Mean Corpuscular Hemoglobin 26.5 pg (27.0-31.0); Mean Corpuscular Volume 85.3 fL (78.0-98.0); Mean Platelet Volume 7.7 fL (7.4-10.4); Platelet Count 190 thou/uL (130-400); Red Blood Cell (RBC) Count 3.62 mill/uL (4.20-5.40); White Blood Cell (WBC) Count 11.9 thou/uL (4.8-10.8)
--- NOTE | 2019-06-30 15:53 | RAD ---
XR Chest 1 View Portable History: Hypertension. Chest pain. Comparison: Radiograph May 23, 2019 Findings: Lungs are severely hypoinflated with vascular crowding along with atelectatic changes in th e lingula and left lower lobe. Old left rib fractures. Anterior subcoracoid dislocation of both shoulders. There is a lucency at the right humeral head. Old right-sided rib fractures. No pneumothorax or significant effusion. Impression: 1. Lung hypoinflation with vascular crowding and atelectatic changes. 2. Anterior subluxation of both shoulders with severe degenerative changes. 3. Lucency of the right humeral head could be sequelae of subcortical cyst formation or resorption le ss likely a mass. Nonemergent dedicated shoulder radiographs recommended.
[2019-06-30 16:12] LABS: ALT (SGPT) 13 U/L (8-55); AST (SGOT) 22 U/L (5-34); Albumin 3.6 g/dL (3.5-5.0); Alkaline Phosphatase 85 U/L (40-110); Anion Gap 15 mmol/L (10-20); BUN (Urea Nitrogen) 13 mg/dL (9.8-20.1); Bilirubin, Total 0.5 mg/dL (0.2-1.2); CK (CPK) 81 U/L (29-168); Calc. Creatinine Clearance 0 mL/min (70-130); Calcium 9.8 mg/dL (7.8-10.44); Carbon Dioxide 30 mmol/L (22-29); Chloride 99 mmol/L (98-107); Estimated GFR-MDRD 78; Glucose 113 mg/dL (70-105); Lipase 56 U/L (8-78); Potassium 4.2 mmol/L (3.5-5.1); Protein, Total 6.6 g/dL (6.0-8.3); Sodium 140 mmol/L (136-145)
[2019-06-30 16:14] LABS: Bacteria/HPF 4+ HPF (None Seen); Bilirubin Negative (Negative); Blood, Urine Trace (Negative); Clarity Clear (Clear); Glucose, Urine (Dipstick) Normal (Negative); Leukocyte Negative Leu/uL (Negative); Nitrite 1+ (Negative); Protein, Urine (Dipstick) 70 mg/dL (Neg-Trace); RBC/HPF 0-3 HPF (0-3); Squamous Epithelial 0-3 HPF (0-3); Urobilinogen Normal mg/dL (Less than 2)
[2019-06-30] MEDS ORDERED: cefTRIAXone\\ROCEPHIN 1 GM VIAL ONE ×2 (16:55→16:56)
[2019-06-30] MEDS ORDERED: Morphine 4 MG/ML VIAL ONE ×2 (16:55→19:52)
[2019-06-30] MEDS ORDERED: Labetalol HCl 100 MG/20 ML VIAL ONE (16:55)
[2019-06-30] MEDS ORDERED: Acetaminophen 650 MG Suppository PR PRN (18:55)
[2019-06-30] MEDS ORDERED: Ondansetron PF 4 MG/2 ML Vial IVP PRN (18:55)
[2019-06-30] MEDS ORDERED: Ondansetron ODT 4 MG TAB PO PRN (18:55)
[2019-06-30] MEDS ORDERED: Dextrose 5% in Water 1,000 ML IV PRN (18:58)
[2019-06-30] MEDS ORDERED: HumaLOG 300 UNITS/3 ML VIAL SC PRN (18:58)
[2019-06-30] MEDS ORDERED: Dextrose 50% Abboject 50 ML SYRINGE SLOW IVP PRN (18:58)
[2019-06-30 19:38] LABS: Troponin I 0.024 ng/mL (< 0.028)
--- NOTE | 2019-06-30 19:58 | RAD ---
XR Shoulder Rt 3 View STANDARD: 06/30/2019 6:52 PM CLINICAL INDICATION: Abnormality seen on chest radiograph involving the right humerus. COMPARISON: CT of the chest dated January 20, 2019 FINDINGS: Bones: There is prominent osteopenia of the proximal humeral head. There is some fragmentation and sc attered periarticular bodies surrounding the right humeral head. There is a circumscribed lucent lesion involving the proximal humerus at approximately 4.6 x 4.1 cm. Glenohumeral joint: There is slight anterior subluxation of the humeral head in relationship to the r ight glenohumeral joint. AC joint: Moderate AC joint osteoarthrosis Visualized lung: Clear. Soft tissues: Within normal limits. IMPRESSION: 4.6 cm well-circumscribed lucent lesion involving the proximal right humeral head. Findings are suspi cious for metastatic disease or myeloma. There is prominent osteopenia involving the osseous structures of the right shoulder. Further characterization with a CT of the right shoulder may be hel pful for improved characterization. There are multiple periarticular bodies seen within the right glenohumeral joint. There is slight anterior subluxation of the right humeral head in relationship to the glenohumeral joint may be indicative some underlying ligamentous instability.
[2019-06-30] MEDS ORDERED: Famotidine/PF 20 mg/2ml Vial SLOW IVP SCH (21:00)
[2019-06-30] MEDS ORDERED: Famotidine 20 MG TAB PO SCH (21:45)
[2019-06-30] MEDS ORDERED: Nitroglycerin 0.4 MG TAB (25 Tab Bottle) SL PRN (21:47)
[2019-06-30] MEDS: hydrALAZINE 20 MG/ML VIAL SLOW IVP PRN (21:48)
[2019-06-30] MEDS ORDERED: Ketorolac Tromethamine 30 MG/ML VIAL IVP SCH (22:00)
--- NOTE | 2019-06-30 23:04 | CT ---
CTA Angio Chest W WO Con 06/30/2019 12:00 AM Indication: Chest tightness and shortness of breath Technique: Multiple CTA images were obtained of the thorax with IV contrast. 3-D rendering: MIP david nstructed images were created and reviewed. Comparison: Prior CT PE dated January 20, 2019 Findings: Pulmonary arteries: No central or segmental pulmonary embolus is evident. Heart and Aorta: Normal appearing. Mediastinum:Normal appearing. No enlarged lymph nodes. Lungs:Scattered subsegmental volume loss Pleural space: Clear. Upper Abdomen: Cirrhotic morphology to the liver. Small hiatal hernia. Osseous Structures: Interval development of age-indeterminate superior endplate compression abnormal ity at T3, T4 and T7 appears stable moderate to severe compression abnormalities at T9 and T10. Healing segmental fractures involving the lateral second, third ribs. There are healing left lateral fourth and fifth ribs fractures. There are remote healed rib fractures bilaterally. Soft tissues:No abnormality. Other findings:None. Impression: No central or segmental pulmonary embolus. Interval age-indeterminate superior endplate compression abnormalities at T3, T4 and T7. Stable promi nent compression abnormalities at T9 and T10.
--- NOTE | 2019-06-30 23:11 | HP ---
PRIMARY CARE PHYSICIAN: Dr. Alina Rascon. CHIEF COMPLAINT: Left-sided chest pain. HISTORY OF PRESENT ILLNESS: Ms. Jurado is a 58-year-old woman who is morbidly obese and on home oxygen with a history of hypothyroidism, hypertension, hyperlipidemia, and diabetes, presenting with left-sided chest pain. The patient states she mobilizes with a wheelchair at home and often pulls herself in order to transfer from bed to wheelchair and to the commode. The patient states 1 week ago, she felt some slight discomfort on the left side of her back and around her left rib cage at the level of her breast and states that has progressively worsened. She states it felt like a pulled muscle. She states it hurts whenever she moves her left arm and hurts to palpation. She states the pain has been progressively worsening and at times hurting with deep inspiration. She initially thought she may have had a spider bite on her left side given the shooting pain that was going from her spine and wrapping around her left side. She denies noting any skin changes, rash, or itching. She denies any shortness of breath except when the pain takes her breath away. She is on oxygen at home which she uses constantly. Of note, patient did have a chest x-ray done showing lung hypoinflation with vascular crowding and atelectatic changes. There is anterior subluxation of both shoulders with severe degenerative changes. Lucency of the right humeral head, felt to be due to subcortical cyst formation or was ruptured and less likely a mass. Nonemergent dedicated shoulder x-rays were recommended. REVIEW OF SYSTEMS: Denies having any associated nausea or vomiting. Her appetite has been good. She has an occasional cough which is chronic and denies any hemoptysis. No abdominal pain or cramping. No changes with her bowels. No urinary symptoms. All other review of systems are negative. In the emergency department, she underwent an EKG which demonstrated normal sinus rhythm with no ST changes or T-wave abnormalities. She did have findings consistent with left ventricular hypertrophy. The patient has had an echocardiogram this year in December 2018, which showed an EF of 55% to 60% with mild concentric left ventricular hypertrophy. There was moderate dilation of the left atrium with no evidence of mitral regurgitation. The aortic valve appeared normal with no stenosis or regurgitation. She was noted to have mild TR. She had laboratory studies donein the emergency department that showed a white count of 11.9, hemoglobin of 9.6, hematocrit of 30.9, platelets of 190, neutrophils of 79.1%. Sodium 140, potassium 4.2, BUN 13, creatinine 0.76, GFR 78, glucose 113, calcium 9.8, total bilirubin 0.5, AST 22, ALT 13, and alkaline phosphatase 85. CK 81. Initial troponin and second troponin negative. Albumin 3.6, lipase 56. A urinalysis was done showing 4+ bacteria, 1+ nitrites with blood present and 11 to 20 white blood cells. She was therefore started on IV Rocephin. For her pain, she received a total of 8 mg of morphine in the emergency department. She was given aspirin by EMS. She received Nitro-Bid in the emergency department as well as labetalol 10 mg for an elevated blood pressure. Initial blood pressure was 191/100 and she remained in that range throughout her entire stay in the ED. No additional medications were given for her blood pressure. The patient denies having any headaches, dizziness, or blurred vision. At the time of assessment, she reports having less pain on her side and she is able to pull herself up on the bed, which she was not able to do earlier. PAST MEDICAL HISTORY: 1. Morbid obesity. 2. Hypertension. 3. Hyperlipidemia. 4. Diabetes mellitus. 5. Hepatitis C. 6. Chronic stress fractures of bilateral hips. 7. Frequent staph infections of joints. 8. Chronic bilateral lower extremity lymphedema. 9. Hypothyroidism. PAST SURGICAL HISTORY: 1. Back surgery. 2. Bilateral shoulder surgery. 3. Left knee surgery. 4. Hysterectomy. 5. Right hip surgery. 6. Exploratory laparotomy. SOCIAL HISTORY: The patient denies smoking. Previously smoked marijuana. Reported to be a former drug user. Denies any alcohol consumption. FAMILY HISTORY: Noncontributory. ALLERGIES: NO KNOWN DRUG ALLERGIES. CURRENT MEDICATIONS: 1. Metformin. 2. Crestor. 3. Furosemide. 4. Gabapentin. 5. Levothyroxine. 6. Telmisartan. 7. Levemir. 8. K-Dur. PHYSICAL EXAMINATION: GENERAL: The patient is morbidly obese, found resting on the stretcher and in no acute distress. VITAL SIGNS: Notable for blood pressure of 192/91, pulse of 62, respirations 15, O2 saturation 100% on 3 L. Per patient, she was just given something for her blood pressure less than 50 minutes ago. HEENT: Normocephalic and atraumatic. Pupils are equal, round, and reactive to light. Sclerae without icterus. Oropharynx is clear. NECK: Supple without lymphadenopathy. LUNGS: Clear to auscultation bilaterally without wheezes, rales, or rhonchi. CHEST: Patient with reproducible pain upon palpation of the left side of her thoracic spine and rib cage along the level of her breast, wrapping around to the left lateral chest. No visible skin lesions or rash. No erythema. No vesicles. CARDIAC: Regular rate and rhythm. ABDOMEN: Soft, obese, nontender, nondistended. Areas of ecchymosis noted on her abdomen from insulin injections with small areas of nodularity. INVESTIGATIONS: As mentioned above in HPI. IMPRESSION AND PLAN: Ms. Jurado is a 58-year-old woman who presents with left-sided back and chest pain, progressively worsening over the week, is being referred for management of the following. 1. Acute coronary syndrome rule out. We will continue to trend troponins. EKG unremarkable. The patient is on oxygen at baseline and sedentary. She is not on any blood thinners. We will obtain a D-dimer as PE could be a possibility. On examination, did not appear to be consistent with any shingles. Appears to be musculoskeletal in nature. 2. Hypertensive urgency. The patient with elevated blood pressure in the 190s. Could be due to pain and was just recently given morphine as well as labetalol for her blood pressure. We will continue to monitor blood pressure. We will reconcile home medications once verified. 3. Diabetes mellitus. Initiate insulin sliding scale. Resume home medications once verified. We will hold nephrotoxic agents such as metformin. 4. Urinary tract infection. We will add on lactic acid. White count elevated at 11.9. Continue IV antibiotics and await urine culture. 5. Hyperlipidemia. Resume home medications once verified and check fasting lipid panel in the morning. 6. Gastrointestinal prophylaxis. Famotidine 20 mg p.o. b.i.d. 7. Deep venous thrombosis prophylaxis. Mechanical SCDs. 8. Code status is full. Her surrogate decision maker is her son, Yovanny Jurado, whom she lives with. The patient's case was discussed with attending who agrees upon care as described above. Job ID: [id number]
[2019-06-30 23:29] VITALS: BMI 47.2
[2019-07-01] MEDS ORDERED: Calcium Carbonate 500 MG ChewTAB PO PRN (00:07)
[2019-07-01 00:10] LABS: Lactic Acid 2.1 mmol/L (0.5-2.2)
[2019-07-01] MEDS ORDERED: Gabapentin 300 MG CAP PO SCH (00:15)
[2019-07-01] MEDS: Morphine 4 MG/ML VIAL SLOW IVP PRN ×4 (01:02→23:56)
[2019-07-01] MEDS ORDERED: Aspirin 325 MG TAB PO SCH (01:15)
[2019-07-01] MEDS ORDERED: Enoxaparin Sodium 120 MG/0.8 ML SYRINGE SC SCH (01:15)
[2019-07-01] MEDS: hydrALAZINE 20 MG/ML VIAL SLOW IVP PRN ×2 (01:58→09:50)
[2019-07-01 05:09] LABS: #Eosinphils 0.1 thou/uL (0.0-0.7); #Lymphocytes 1.1 thou/uL (1.20-3.40); #Monocytes 0.8 thou/uL (0.11-0.59); #Neutrophils 9.4 thou/uL (1.40-6.50); %Basophils 0.1 % (0.0-1.0); %Eosinophils 0.6 % (0.0-10.0); %Lymphocytes 9.7 % (21.0-51.0); %Monocytes 6.8 % (0.0-10.0); %Neutrophils 82.7 % (42.0-75.0); Hemoglobin 9.8 g/dL (12.0-16.0); Mean Corpuscular HGB CONC 29.4 g/dL (32.0-36.0); Mean Corpuscular Hemoglobin 25.8 pg (27.0-31.0); Mean Corpuscular Volume 87.7 fL (78.0-98.0); Mean Platelet Volume 8.7 fL (7.4-10.4); Platelet Count 162 thou/uL (130-400); RBC Distribution Width 16.4 % (11.5-14.5); Red Blood Cell (RBC) Count 3.82 mill/uL (4.20-5.40); White Blood Cell (WBC) Count 11.4 thou/uL (4.8-10.8)
[2019-07-01] MEDS: Levothyroxine Sodium 75 MCG TAB PO SCH (06:20)
[2019-07-01 06:45] LABS: Chloride 100 mmol/L (98-107); Potassium 3.5 mmol/L (3.5-5.1); Sodium 141 mmol/L (136-145)
[2019-07-01 06:46] LABS: Calcium 9.5 mg/dL (7.8-10.44); Glucose 133 mg/dL (70-105)
[2019-07-01 06:47] LABS: Triglycerides 174 mg/dL (Less than 150)
[2019-07-01 06:48] LABS: Anion Gap 11 mmol/L (10-20); Carbon Dioxide 34 mmol/L (22-29)
[2019-07-01 06:50] LABS: Calc. Creatinine Clearance 153 mL/min (70-130); Estimated GFR-MDRD 83
[2019-07-01 06:51] LABS: BUN (Urea Nitrogen) 12 mg/dL (9.8-20.1)
[2019-07-01 06:52] LABS: Cardiac Risk 4.3 (Less than 4.5); Cholesterol 90 mg/dl (< 200 Desired); HDL Cholesterol 21 mg/dL (>60 Neg Risk); LDL Cholesterol, Calculated 34 mg/dL
[2019-07-01] MEDS: Furosemide 40 MG TAB PO SCH ×2 (08:55→20:51)
[2019-07-01] MEDS: Ferrous Sulfate 325 MG TAB PO SCH (08:56)
[2019-07-01] MEDS: Famotidine 20 MG TAB PO SCH ×2 (08:56→20:51)
[2019-07-01] MEDS: Aspirin 81 mg Enteric Coated Tablet PO SCH (08:56)
[2019-07-01] MEDS: Lidocaine 5% Patch TD SCH (08:57)
[2019-07-01] MEDS ORDERED: Losartan 25 MG TAB PO SCH (09:00)
[2019-07-01] MEDS ORDERED: Dextrose 5% in Water 1,000 ML IV SCH (09:45)
[2019-07-01] MEDS: Insulin Glargine 30 UNITS in Pre-Filled Syringe 1 EACH SC SCH ×2 (09:47→20:50)
[2019-07-01] MEDS: NIFEdipine XL 60 MG TAB PO SCH (11:23)
--- NOTE | 2019-07-01 11:50 | CON ---
DATE OF CONSULTATION: HISTORY OF PRESENT ILLNESS: The patient is a 58-year-old woman, who presented with back, chest, and shoulder discomfort. The patient has no previous cardiac history. She states approximately a week ago she started having pain in her back that radiated to her chest and shoulder. This discomfort has been persistent for the past week. Whenever she moves her arm, it becomes more severe. The patient has multiple cardiac risk factors including diabetes mellitus, hypertension, hyperlipidemia, and a family history of coronary artery disease. PAST MEDICAL HISTORY: 1. Hypertension. 2. Dyslipidemia. 3. Diabetes mellitus. 4. Morbid obesity. 5. Hypothyroidism. PAST SURGICAL HISTORY: Back surgery, shoulder surgery, knee surgery, hysterectomy, and hip surgery. SOCIAL HISTORY: Nonsmoker. ALLERGIES: NO KNOWN DRUG ALLERGIES. MEDICATIONS: On admission, see nursing list. FAMILY HISTORY: Positive family history of coronary artery disease. REVIEW OF SYSTEMS: Ten-point system otherwise unremarkable. PHYSICAL EXAMINATION: GENERAL: This is a morbidly obese woman, in no acute distress. VITAL SIGNS: Blood pressure 193/76. NECK: Showed no jugular venous distention. LUNGS: Clear to auscultation. HEART: Regular rate and rhythm. Normal S1 and S2. 1/6 systolic murmur. ABDOMEN: Markedly distended. EXTREMITIES: Showed bilateral edema. VASCULAR: Radial pulses 2+ bilaterally. LABORATORY DATA: Sodium 141, potassium 3.5, chloride 100, bicarbonate 34, BUN 12, creatinine 0.72, and glucose 133. Troponin 0.02. White blood cell count 11.4, hemoglobin 9.8, hematocrit 35.5, and platelets 162. IMAGING DATA: EKG revealed normal sinus rhythm, normal ECG. IMPRESSION: 1. Chest and back discomfort suggestive of musculoskeletal pain. 2. Elevated troponin level. 3. Poorly controlled hypertension. 4. Diabetes mellitus. 5. Dyslipidemia. 6. Morbid obesity. PLAN: This patient presents with atypical chest pain. She had mildly elevated troponin level probably secondary to demand ischemia from poorly controlled hypertension. I would recommend adding nifedipine for better blood pressure control. We will follow this patient with you through her hospitalization. Job ID: [id number] [facility]
--- NOTE | 2019-07-01 15:32 | PDOC.HOSPP ---
- Subjective Encounter Date: 07/01/19 Encounter Time: 11:40 Subjective: Back pain, upper. - Objective Vital Signs & Weight: Vital Signs (12 hours) Temp Pulse Pulse Resp BP BP BP 07/01/19 12:45 97.9 F 65 20 176/75 H 176/75 H 07/01/19 11:15 75 178/73 H 07/01/19 10:36 60 143/63 H 07/01/19 09:50 67 193/76 H 07/01/19 08:50 97.4 F L 74 20 189/81 H 07/01/19 04:00 97.9 F 70 16 164/75 H Pulse Ox 07/01/19 12:45 98 07/01/19 11:15 07/01/19 10:36 07/01/19 09:50 07/01/19 08:50 99 07/01/19 04:00 98 Weight Admit Weight 250 lb 3 oz Weight 250 lb 3 oz I&O: 06/30/19 07/01/19 07/02/19 06:59 06:59 06:59 Intake Total 920 Output Total 1450 Balance -530 Result Diagrams: 07/01/19 04:57 07/01/19 06:10 Additional Labs: Accuchecks 07/01/19 07/01/19 07/01/19 11:06 05:55 03:35 POC Glucose 133 H 125 H 104 06/30/19 21:43 POC Glucose 116 H Hospitalist ROS - Medication Medications: Active Medications Generic Name Dose Route Start Last Admin Trade Name Freq PRN Reason Stop Dose Admin Aspirin 81 mg 07/01/19 09:00 07/01/19 08:56 Ecotrin PO 81 mg DAILY GAETANO Administration Famotidine 20 mg 07/01/19 09:00 07/01/19 08:56 Pepcid PO 20 mg BID GAETANO Administration Ferrous Sulfate 325 mg 07/01/19 09:00 07/01/19 08:56 Feosol PO 325 mg DAILY GAETANO Administration Furosemide 40 mg 07/01/19 09:00 07/01/19 08:55 Lasix PO 40 mg BID GAETANO Administration Hydralazine HCl 10 mg 06/30/19 19:06 07/01/19 09:50 Apresoline SLOW IVP 10 mg Q4H PRN Administration SBP Greater Than 180 Insulin Glargine 30 units/ 0.3 mls @ 0 mls/hr 07/01/19 09:00 07/01/19 09:47 Miscellaneous Medication SC 0.3 mls BID GAETANO Administration Levothyroxine Sodium 75 mcg 07/01/19 06:00 07/01/19 06:20 Synthroid PO 75 mcg 0600 GAETANO Administration Lidocaine 1 patch 07/01/19 09:00 07/01/19 08:57 Lidoderm 5% Patch TD 1 patch DAILY GAETANO Administration Losartan Potassium 50 mg 07/01/19 09:00 07/01/19 08:56 Cozaar PO 50 mg DAILY GAETANO Administration Morphine Sulfate 4 mg 07/01/19 00:10 07/01/19 11:08 Morphine SLOW IVP 4 mg Q4H PRN Administration Severe Pain (7-10) Nifedipine 60 mg 07/01/19 11:00 07/01/19 11:23 Procardia Xl PO 60 mg 1100 GAETANO Administration Nitroglycerin 0.4 mg 06/30/19 21:47 06/30/19 21:59 Nitrostat SL 0.4 mg Q5MIN PRN Administration Chest Pain Pantoprazole Sodium 40 mg 07/01/19 09:00 07/01/19 08:56 Protonix PO 40 mg DAILY GAETANO Administration - Exam General Appearance: NAD Neck: supple Heart: RRR Respiratory: CTAB Gastrointestinal: soft Extremities: no edema Neurological: no weakness Psychiatric: normal affect Hosp A/P (1) HTN (hypertension) Code(s): I10 - ESSENTIAL (PRIMARY) HYPERTENSION Status: Acute Plan: Possibly related to pain.. (2) Diabetes Code(s): E11.9 - TYPE 2 DIABETES MELLITUS WITHOUT COMPLICATIONS Status: Acute Plan: ON SLIDING SCALE.. (3) UTI (urinary tract infection) Status: Acute Plan: on antibiotics (4) Wedge compression fracture of t9-t10 vertebra, initial encounter for closed fracture Code(s): S22.070A - WEDGE COMPRESSION FRACTURE OF T9-T10 VERTEBRA, INIT Status : Acute - Plan Continue current terapy.. f/u with neurosurgery.. Analgesics prn.
[2019-07-01] MEDS: HumaLOG 300 UNITS/3 ML VIAL SC PRN (17:45)
[2019-07-01] MEDS: cefTRIAXone\\ROCEPHIN 1 GM in Sodium Chloride 0.9% 100 ML IVPB SCH (17:45)
[2019-07-01] MEDS: Rosuvastatin 20 MG TAB PO SCH (20:51)
[2019-07-01] MEDS: Potassium Chloride 20 MEQ TAB PO SCH (20:51)
[2019-07-01] MEDS: Gabapentin 300 MG CAP PO SCH (20:52)
[2019-07-01] MEDS: Acetaminophen 325 MG TAB PO PRN (21:29)
[2019-07-02] MEDS: Levothyroxine Sodium 75 MCG TAB PO SCH (05:16)
[2019-07-02] MEDS: Insulin Glargine 30 UNITS in Pre-Filled Syringe 1 EACH SC SCH ×2 (09:02→21:02)
[2019-07-02] MEDS: Ferrous Sulfate 325 MG TAB PO SCH (09:03)
[2019-07-02] MEDS: Lidocaine 5% Patch TD SCH (09:03)
[2019-07-02] MEDS: Famotidine 20 MG TAB PO SCH ×2 (09:03→20:26)
[2019-07-02] MEDS: Losartan 25 MG TAB PO SCH (09:03)
[2019-07-02] MEDS: Aspirin 81 mg Enteric Coated Tablet PO SCH (09:03)
[2019-07-02] MEDS: Furosemide 40 MG TAB PO SCH ×2 (09:03→20:26)
[2019-07-02] MEDS: NIFEdipine XL 60 MG TAB PO SCH (11:43)
--- NOTE | 2019-07-02 11:46 | PDOC.HOSPP ---
- Subjective Encounter Date: 07/02/19 Encounter Time: 08:40 Subjective: +Backache.. - Objective Vital Signs & Weight: Vital Signs (12 hours) Temp Pulse Resp BP Pulse Ox 07/02/19 11:40 97.9 F 72 18 139/65 97 07/02/19 08:45 97.6 F 87 20 134/80 95 07/02/19 05:23 97.4 F L 07/02/19 02:45 66 18 133/62 97 Weight Admit Weight 250 lb 3 oz Weight 251 lb 3 oz I&O: 07/01/19 07/02/19 07/03/19 06:59 06:59 05:59 Intake Total 920 2650 Output Total 1450 1500 Balance -530 1150 Result Diagrams: 07/01/19 04:57 07/01/19 06:10 Additional Labs: Accuchecks 07/02/19 07/01/19 07/01/19 05:46 20:44 17:11 POC Glucose 134 H 176 H 213 H Hospitalist ROS - Medication Medications: Active Medications Generic Name Dose Route Start Last Admin Trade Name Freq PRN Reason Stop Dose Admin Acetaminophen 650 mg 06/30/19 18:55 07/01/19 21:29 Tylenol PO 650 mg Q4H PRN Administration Headache/Fever/Mild Pain (1-3) Aspirin 81 mg 07/01/19 09:00 07/02/19 09:03 Ecotrin PO 81 mg DAILY GAETANO Administration Famotidine 20 mg 07/01/19 09:00 07/02/19 09:03 Pepcid PO 20 mg BID GAETANO Administration Ferrous Sulfate 325 mg 07/01/19 09:00 07/02/19 09:03 Feosol PO 325 mg DAILY GAETANO Administration Furosemide 40 mg 07/01/19 09:00 07/02/19 09:03 Lasix PO 40 mg BID GAETANO Administration Gabapentin 300 mg 07/01/19 21:00 07/01/19 20:52 Neurontin PO 300 mg HS GAETANO Administration Hydralazine HCl 10 mg 06/30/19 19:06 07/01/19 09:50 Apresoline SLOW IVP 10 mg Q4H PRN Administration SBP Greater Than 180 Ceftriaxone Sodium 1 gm/ 100 mls @ 200 mls/hr 07/01/19 17:30 07/01/19 17:45 Sodium Chloride IVPB 100 mls Q24HR GAETANO Administration Insulin Glargine 30 units/ 0.3 mls @ 0 mls/hr 07/01/19 09:00 07/02/19 09:02 Miscellaneous Medication SC 0.3 mls BID GAETANO Administration Insulin Human Lispro 0 units 06/30/19 18:58 07/01/19 17:45 Humalog SC 4 unit .MODERATE SLIDING SC PRN Administration Moderate Correctional Scale Levothyroxine Sodium 75 mcg 07/01/19 06:00 07/02/19 05:16 Synthroid PO 75 mcg 0600 GAETANO Administration Lidocaine 1 patch 07/01/19 09:00 07/02/19 09:03 Lidoderm 5% Patch TD Not Given DAILY GAETANO Losartan Potassium 100 mg 07/02/19 09:00 07/02/19 09:03 Cozaar PO 100 mg DAILY GAETANO Administration Morphine Sulfate 4 mg 07/01/19 00:10 07/01/19 23:56 Morphine SLOW IVP 4 mg Q4H PRN Administration Severe Pain (7-10) Nifedipine 60 mg 07/01/19 11:00 07/02/19 11:43 Procardia Xl PO 60 mg 1100 GAETANO Administration Nitroglycerin 0.4 mg 06/30/19 21:47 06/30/19 21:59 Nitrostat SL 0.4 mg Q5MIN PRN Administration Chest Pain Pantoprazole Sodium 40 mg 07/01/19 09:00 07/02/19 09:03 Protonix PO 40 mg DAILY GAETANO Administration Potassium Chloride 20 meq 07/01/19 21:00 07/01/19 20:51 K-Dur PO 20 meq HS GAETANO Administration Rosuvastatin Calcium 40 mg 07/01/19 21:00 07/01/19 20:51 Crestor PO 40 mg HS GAETANO Administration - Exam General Appearance: NAD Neck: no JVD Heart: RRR Respiratory: CTAB Gastrointestinal: soft Extremities: no edema Neurological: no weakness Hosp A/P (1) HTN (hypertension) Code(s): I10 - ESSENTIAL (PRIMARY) HYPERTENSION Status: Acute Plan: Controlled (2) Diabetes Code(s): E11.9 - TYPE 2 DIABETES MELLITUS WITHOUT COMPLICATIONS Status: Acute Plan: BS satisfactory. (3) UTI (urinary tract infection) Status: Acute Plan: continue antibiotics.. (4) Wedge compression fracture of t9-t10 vertebra, initial encounter for closed fracture Code(s): S22.070A - WEDGE COMPRESSION FRACTURE OF T9-T10 VERTEBRA, INIT Status : Acute Plan: Analgesics prn - Plan Continue current terapy.. Analgesics prn.
[2019-07-02] MEDS: Cyclobenzaprine 10 MG TAB PO PRN ×2 (12:16→21:02)
[2019-07-02] MEDS: cefTRIAXone\\ROCEPHIN 1 GM in Sodium Chloride 0.9% 100 ML IVPB SCH (17:46)
[2019-07-02] MEDS: HumaLOG 300 UNITS/3 ML VIAL SC PRN (17:59)
[2019-07-02] MEDS: Rosuvastatin 20 MG TAB PO SCH (20:25)
[2019-07-02] MEDS: Gabapentin 300 MG CAP PO SCH (20:26)
[2019-07-02] MEDS: Potassium Chloride 20 MEQ TAB PO SCH (20:26)
[2019-07-03] MEDS: Levothyroxine Sodium 75 MCG TAB PO SCH (05:36)
[2019-07-03] MEDS: Insulin Glargine 30 UNITS in Pre-Filled Syringe 1 EACH SC SCH (08:42)
[2019-07-03] MEDS: Losartan 25 MG TAB PO SCH (08:43)
[2019-07-03] MEDS: Lidocaine 5% Patch TD SCH (08:44)
[2019-07-03] MEDS: Famotidine 20 MG TAB PO SCH (08:44)
[2019-07-03] MEDS: Furosemide 40 MG TAB PO SCH (08:44)
[2019-07-03] MEDS: Ferrous Sulfate 325 MG TAB PO SCH (08:44)
[2019-07-03] MEDS: Aspirin 81 mg Enteric Coated Tablet PO SCH (08:44)
[2019-07-03] MEDS: NIFEdipine XL 60 MG TAB PO SCH (10:32)
[2019-07-03] MEDS: Cyclobenzaprine 10 MG TAB PO PRN (10:32)
[2019-07-03 11:48] VITALS: BP 146/72; TEMP 98.1
[2019-07-03] MEDS: Acetaminophen 325 MG TAB PO PRN (13:58)
--- NOTE | 2019-07-04 07:32 | DIS ---
DATE OF ADMISSION: 06/30/2019 DATE OF DISCHARGE: 07/03/2019 ADMITTING DIAGNOSES: Acute coronary syndrome ruled out, hypertensive urgency, diabetes mellitus, urinary tract infection, hyperlipidemia. DISCHARGE DIAGNOSES: Acute coronary syndrome ruled out, hypertensive urgency, diabetes mellitus, urinary tract infection, hyperlipidemia. [employer] ASSEMBLER: Dr. Piedra. PROCEDURES: Chest CT, chest x-ray, EKG. COURSE OF HOSPITALIZATION: Uncomplicated, responded well to management. The patient's chest pain is most likely secondary to previous fracture compression of thoracic and lumbar vertebrae. She is clinically stable at this time, being discharged home. DISCHARGE MEDICATIONS: Please see discharge medication reconciliation sheet. FOLLOWUP: She is to follow up with Dr. Piedra and also with her primary care physician. PHYSICAL EXAMINATION: GENERAL: Today, the patient is alert, oriented, in no distress. VITAL SIGNS: Her latest vital signs show a temperature of 98.2, pulse rate 72, respiratory rate 19, and blood pressure 118/56. HEAD AND NECK: Normal. HEART: She has regular S1 and S2. LUNGS: Clear. ABDOMEN: Benign. EXTREMITIES: Limbs show no edema. NEUROLOGIC: She moves all extremities. As we mentioned earlier, the patient is to follow up with Dr. Piedra and also with her PCP. The patient is clinically stable at this time. Job ID: [id number]
--- NOTE | 2019-07-04 11:24 | EKG ---
Test Reason : STAT Blood Pressure : / mmHG Vent. Rate : 054 BPM Atrial Rate : 054 BPM P-R Int : 102 ms QRS Dur : 084 ms QT Int : 446 ms P-R-T Axes : 033 -05 054 degrees QTc Int : 422 ms Sinus bradycardia with sinus arrhythmia with short DE Minimal voltage criteria for LVH, may be normal variant Septal infarct , age undetermined cannot be excluded Abnormal ECG Confirmed by MANNY GARCIA ([id number]) on 07/04/2019 11:23:52 AM Referred By: SHALA VILLASENOR Confirmed By:MANNY GARCIA
--- NOTE | 2019-07-04 11:24 | EKG ---
Test Reason : Blood Pressure : / mmHG Vent. Rate : 065 BPM Atrial Rate : 065 BPM P-R Int : 124 ms QRS Dur : 094 ms QT Int : 428 ms P-R-T Axes : 047 000 055 degrees QTc Int : 445 ms Normal sinus rhythm Normal ECG Confirmed by MANNY GARCIA ([id number]) on 07/04/2019 11:24:21 AM Referred By: KALI Confirmed By:MANNY GARCIA
== END 2019-07-03 15:19 | disposition home health service (06) ==
LOC: ERS 15:02 → 2NO 17:14
PROVIDERS: ADMIT Internal Medicine; ATTEND Internal Medicine
DX: R07.89 Other chest pain (principal); I16.0 Hypertensive urgency; N39.0 Urinary tract infection, site not specified; E78.5 Hyperlipidemia, unspecified; I10 Essential (primary) hypertension; E03.9 Hypothyroidism, unspecified; E66.01 Morbid (severe) obesity due to excess calories; Z68.42 Body mass index [BMI] 45.0-49.9, adult
CPT/HCPCS: 71045; 71275; 73030; 80048; 80053; 80061; 82550; 82962 ×4; 83605; 83690; 83735; 84443; 84484 ×3; 85025 ×2; 85379; 87077; 87086; 87186; 90732; 93005 ×2; 96361; 96365; 96366; 96372; 96375 ×2; 96376 ×3; 97110; 97139 ×6; 98960; 99285; G0009; G0378 ×5; 36415; 36416; 81003; 81015; 90471; 93010; J0360; J0696; J1650; J1815; J1885; J2270; J3490; Q9966

== ENCOUNTER 2019-07-07 14:04 | Emergency (ER) | payer MEDICARE ==
[2019-07-07 14:54] LABS: Hemoglobin 9.4 g/dL (12.0-16.0); Mean Corpuscular HGB CONC 29.7 g/dL (32.0-36.0); Mean Corpuscular Hemoglobin 26.2 pg (27.0-31.0); Mean Corpuscular Volume 88.1 fL (78.0-98.0); Mean Platelet Volume 7.6 fL (7.4-10.4); Platelet Count 154 thou/uL (130-400); RBC Distribution Width 17.2 % (11.5-14.5); Red Blood Cell (RBC) Count 3.59 mill/uL (4.20-5.40)
--- NOTE | 2019-07-07 14:58 | RAD ---
Exam: Chest one view HISTORY:Left-sided chest pain. Comparison: 06/30/2019 FINDINGS: Cardiac silhouette: Normal Aorta: Atherosclerosis Pulmonary vessels: Normal Costophrenic angles: Clear LUNGS: Persistent opacities in the left lung base. Pneumothorax: None Osseous abnormalities: Chronic changes in the left and right humerus. There appears to be chronic mello ateral humeral subluxations. Chronic changes involving the left bony thorax. IMPRESSION: 1. Chronic changes of the left lung base. 2. Chronic osseous findings as described above. 3. Atherosclerosis
[2019-07-07 15:15] LABS: Band 8 % (5-11); Eosinophils 2 % (0-10); Hypochromia SLIGHT = 6-15 cells (100X) (0-5/hpf); Lymphocytes 10 % (21-51); MDiff Complete? YES; Macrocytosis SLIGHT = 6-15 cells (100X) (0-5/hpf); Monocytes 4 % (0-10); Neutrophil 73 % (42-75); Ovalocytes SLIGHT = 2-5 cells (100X) (0-1/hpf); Platelet Morphology Comment Appears Adequate; Polychromasia MODERATE = 3-4 cells (100X) (0-2/hpf); Reactive Lymphocytes 3 % (0-10); Tear Drops SLIGHT = 2-5 cells (100X) (0-1/hpf); White Blood Cell (WBC) Count 11.3 thou/uL (4.8-10.8)
[2019-07-07 15:16] LABS: ALT (SGPT) 15 U/L (8-55); AST (SGOT) 26 U/L (5-34); Albumin 3.6 g/dL (3.5-5.0); Alkaline Phosphatase 80 U/L (40-110); Anion Gap 15 mmol/L (10-20); BUN (Urea Nitrogen) 11 mg/dL (9.8-20.1); Bilirubin, Total 0.5 mg/dL (0.2-1.2); Calc. Creatinine Clearance 0 mL/min (70-130); Calcium 9.9 mg/dL (7.8-10.44); Carbon Dioxide 34 mmol/L (22-29); Chloride 99 mmol/L (98-107); Estimated GFR-MDRD 87; Glucose 93 mg/dL (70-105); Lipase 39 U/L (8-78); Potassium 3.8 mmol/L (3.5-5.1); Protein, Total 6.6 g/dL (6.0-8.3); Sodium 144 mmol/L (136-145)
[2019-07-07] MEDS ORDERED: Iopamidol-370 76% 500 ML 1 ML ONE (15:59)
[2019-07-07] MEDS ORDERED: Morphine 4 MG/ML VIAL ONE ×2 (16:03→17:07)
[2019-07-07] MEDS ORDERED: Ondansetron PF 4 MG/2 ML Vial ONE (16:03)
--- NOTE | 2019-07-07 17:46 | CT ---
CT Abdomen Pelvis W Con: 07/07/2019 3:40 PM CLINICAL INFORMATION: Left-sided abdominal pain for several months COMPARISON: CT chest 06/30/2019 TECHNIQUE: Multiple contiguous axial images were obtained and a CT of the abdomen and pelvis with IV contrast. C oronal and sagittal reformats were performed. FINDINGS: Lower Chest: Bilateral dependent atelectasis. Abdomen: Liver: within normal limits. Bile Ducts: Normal caliber. Gallbladder: No calcified gallstones. Normal caliber wall. Pancreas: within normal limits. Spleen: within normal limits. Adrenals: within normal limits. Kidneys: Small hypodensities in both kidneys are too small to definitely characterize but may represe nt small cysts. There is a 3 mm nonobstructing right renal calcification. Pelvis: Reproductive Organs: Status post hysterectomy. Ureters: within normal limits. Bladder: within normal limits. Peritoneum: No ascites or free air, no fluid collection. Bowel: Normal caliber. Mesentery and Retroperitoneum: No enlarged mesenteric or retroperitoneal lymph nodes. Vessels: Normal. Abdominal Wall: within normal limits. Bones: Degenerative changes in the spine. Compression fractures are seen in the lower thoracic spine. Multiple healed bilateral rib fractures. Screws are seen in the right proximal femur. There appear to be healed pelvic fractures. IMPRESSION: 1. No evidence of acute intraabdominal or pelvic abnormality. 2. Nonobstructing right renal calcification 3. Bilateral renal cysts
== END 2019-07-07 18:51 | disposition home or self-care (01) ==
LOC: ERS 14:04
DX: S39.011A Strain of muscle, fascia and tendon of abdomen, initial encounter (principal); E03.9 Hypothyroidism, unspecified; E11.9 Type 2 diabetes mellitus without complications; I10 Essential (primary) hypertension; E66.9 Obesity, unspecified; E78.5 Hyperlipidemia, unspecified; Z79.4 Long term (current) use of insulin; Z79.899 Other long term (current) drug therapy; X58.XXXA Exposure to other specified factors, initial encounter
CPT/HCPCS: 36415; 71045; 74177; 80053; 83605; 83690; 84484; 85025; 93005; 94760; J2270; J2405

== ENCOUNTER 2019-07-08 19:09 | Inpatient (IN) | payer MEDICARE ==
[~2019-07-08 19:09] MED LIST changes: -ISOVUE-370 76%-LOCM 1 ML ONE; +Iopamidol-370 76% 500 ML 1 ML ONE
[2019-07-08] MEDS ORDERED: Aspirin Chewable 81 MG TAB ONE (19:28)
[2019-07-08 19:53] LABS: Bacteria/HPF None Seen HPF (None Seen); Bilirubin Negative (Negative); Blood, Urine 1+ (Negative); Clarity Clear (Clear); Glucose, Urine (Dipstick) Normal (Negative); Leukocyte Negative Leu/uL (Negative); Nitrite Negative (Negative); Protein, Urine (Dipstick) 100 mg/dL (Neg-Trace); RBC/HPF 0-3 HPF (0-3); Squamous Epithelial 0-3 HPF (0-3); Urobilinogen Normal mg/dL (Less than 2)
[2019-07-08 20:01] LABS: Amphetamine Not Detected (NotDetected); Barbiturates Screen Not Detected (NotDetected); Benzodiazepine Screen Not Detected (NotDetected); Cocaine Metabolite Screen Not Detected (NotDetected); Medtox Control Line Valid? VALID (VALID); Medtox Reader # READER 1; Methadone Not Detected (NotDetected); Methamphetamine Not Detected (NotDetected); Opiate Screen Detected (NotDetected); Oxycodone Screen Not Detected (NotDetected); Phencyclidine (PCP) Not Detected (NotDetected); THC/Cannabinoid Screen Not Detected (NotDetected); Tricyclic Screen Detected (NotDetected)
[2019-07-08 20:07] LABS: #Basophils 0.1 thou/uL (0.0-0.2); #Eosinphils 0.1 thou/uL (0.0-0.7); #Lymphocytes 1.5 thou/uL (1.20-3.40); #Monocytes 1.1 thou/uL (0.11-0.59); #Neutrophils 12.4 thou/uL (1.40-6.50); %Basophils 0.6 % (0.0-1.0); %Eosinophils 0.5 % (0.0-10.0); %Lymphocytes 9.5 % (21.0-51.0); %Monocytes 7.5 % (0.0-10.0); %Neutrophils 81.9 % (42.0-75.0); Hemoglobin 9.7 g/dL (12.0-16.0); Mean Corpuscular HGB CONC 30.5 g/dL (32.0-36.0); Mean Corpuscular Hemoglobin 27.2 pg (27.0-31.0); Mean Corpuscular Volume 89.2 fL (78.0-98.0); Mean Platelet Volume 8.8 fL (7.4-10.4); Platelet Count 145 thou/uL (130-400); RBC Distribution Width 17.9 % (11.5-14.5); Red Blood Cell (RBC) Count 3.55 mill/uL (4.20-5.40); White Blood Cell (WBC) Count 15.2 thou/uL (4.8-10.8)
[2019-07-08 20:10] LABS: Acetaminophen Less than 6.0 mcg/mL (10.0-30.0); Alcohol Less than 10 mg/dL (Less than 10); Salicylate Less than 8.0 mg/dL (15.0-30.0)
[2019-07-08 20:18] LABS: Actual Bicarbonate (HCO3a) 37.7 mEq/L (22-28); Analyzer IN Cardio ER; Base Excess (BEa) 7.2 mEq/L (-2.0 to +3.0); Calcium, Ionized 1.25 mmol/L (1.12-1.30); Carboxyhemoglobin (COHb) 0.6 gm% (0.0-3.0); Hemoglobin (Hb) 10.2 g/dL (12.0-16.0); O2 Tension (PaO2) 66.6 mmHg (80.0-100.0)
[2019-07-08 20:21] LABS: CO2 Tension 98.6 mmHg (35.0-45.0)
[2019-07-08 20:22] LABS: Puncture Site RRA
--- NOTE | 2019-07-08 20:26 | CT ---
CT ANGIOGRAM THORAX WITH IV CONTRAST AND 3-D RECONSTRUCTIONS CLINICAL INDICATION: Drug overdose on opiates. Altered mental status. COMPARISON: 06/30/2019. FINDINGS: Pulmonary arteries: There is suboptimal opacification of the segmental and subsegmental pulmonary art eries limiting evaluation for pulmonary emboli these levels. No filling defects are seen in the central pulmonary arteries to suggest a pulmonary embolus at this level. Aorta: Vascular calcifications are seen in the thoracic aorta, but the thoracic aorta is normal in ca liber without evidence of an aortic dissection. Lungs: There are parenchymal densities seen within the posterior aspect of the right lower lobe as we ll as posterior aspect of each lower lobe and greater on the right which may be attributable to atelectasis as this exam is obtained in expiratory phase of imaging. However, infectious process phil ot be entirely excluded. No pleural effusion or pneumothorax is identified. Mediastinum: The heart is mildly enlarged. No mediastinal lymphadenopathy is seen. Thyroid gland: Not well imaged on this exam. Osseous structures: There is incomplete visualization of severe bilateral glenohumeral osteoarthropat hy with intra-articular loose bodies seen within each glenohumeral joint. There is remodeling of each acetabulum as well as each humeral head. These findings were also seen on prior exam. There are multiple remote bilateral rib fractures again seen. There are compression fractures again involving multiple thoracic vertebral bodies also seen on the prior exam. Chest wall: No abnormality visualized. Upper abdomen: There is suggestion of slight nodular contour of the liver. Cirrhosis is a possibility . Correlation with liver function tests is recommended. IMPRESSION: 1. Suboptimal opacification of the pulmonary arteries limiting evaluation for pulmonary emboli involv ing the segmental and subsegmental pulmonary arteries. There are no findings to suggest a central pulmonary embolus. 2. Parenchymal densities within the posterior aspect right lower lobe and posterior aspect of each lo wer lobe which is likely attributable to atelectasis given expiratory phase of imaging. However, multifocal pneumonia cannot be entirely excluded. 3. Mild cardiomegaly. 4. Multiple remote bilateral rib fractures as well as multiple stable thoracic vertebral body orin jorge fractures. 5. Severe bilateral glenohumeral osteoarthropathy. 6. Nodular contour of the liver which can be seen with cirrhosis. Correlation with liver function wen ts is recommended.
[2019-07-08] MEDS ORDERED: Enoxaparin Sodium 80 MG/0.8 ML SYRINGE ONE (21:12)
[2019-07-08] MEDS ORDERED: Enoxaparin Sodium 40 MG/0.4 ML SYRINGE ONE (21:12)
[2019-07-08] MEDS ORDERED: Furosemide 40 MG/4 ML VIAL ONE (21:16)
[2019-07-08] MEDS ORDERED: Ondansetron PF 4 MG/2 ML Vial IVP PRN (21:16)
[2019-07-08] MEDS ORDERED: Nitroglycerin 2% Ointment 1 INCH/1 GM Packet ONE (21:16)
[2019-07-08] MEDS ORDERED: Acetaminophen 650 MG Suppository PR PRN (21:16)
[2019-07-08] MEDS ORDERED: Amiodarone 150 MG/3 ML VIAL ONE (21:27)
[2019-07-08] MEDS ORDERED: Magnesium 2 GM/50 ML BAG (IN WATER) ONE ×2 (21:27→22:53)
[2019-07-08] MEDS ORDERED: Rocuronium Bromide 50 MG/5 ML VIAL ONE (21:27)
[2019-07-08] MEDS ORDERED: Sodium Bicarb 50 MEQ/50 ML VIAL ONE (21:28)
[2019-07-08] MEDS ORDERED: Sodium Chloride 0.9% 1,000 ML IV SCH (21:30)
[2019-07-08] MEDS ORDERED: Nitroglycerin 0.4 MG TAB (25 Tab Bottle) SL PRN (21:46)
[2019-07-08] MEDS ORDERED: Ventilator Sedation Protocol 1 EACH FS ONE (21:49)
[2019-07-08] MEDS ORDERED: fentaNYL Citrate/PF 2,000 MCG in Sodium Chloride 0.9% 60 ML IV SCH (21:51)
[2019-07-08] MEDS ORDERED: DISCONTINUE PREVIOUS NARCOTIC PAIN MEDICATIONS AND BENZODIAZEPINES FS SCH (21:51)
[2019-07-08] MEDS ORDERED: Fentanyl BOLUS 250 ML IVPB PRN (21:51)
[2019-07-08] MEDS ORDERED: Propofol BOLUS 1,000 MG/100 ML VIAL IV PRN (21:51)
[2019-07-08] MEDS ORDERED: Lorazepam 2 MG/ML VIAL SLOW IVP PRN (21:51)
[2019-07-08] MEDS ORDERED: Propofol 1,000 MG/100 ML VIAL IV PRN (21:51)
[2019-07-08] MEDS ORDERED: Morphine 2 MG/ML SYRINGE SLOW IVP PRN (21:51)
[2019-07-08 21:56] LABS: Albumin 3.6 g/dL (3.5-5.0)
[2019-07-08 21:58] LABS: Calcium 9.3 mg/dL (7.8-10.44); Chloride 100 mmol/L (98-107); Potassium 4.2 mmol/L (3.5-5.1); Sodium 140 mmol/L (136-145)
[2019-07-08 21:59] LABS: Globulin 2.8 g/dL (2.4-3.5); Glucose 136 mg/dL (70-105); Protein, Total 6.4 g/dL (6.0-8.3)
[2019-07-08 22:00] LABS: Anion Gap 17 mmol/L (10-20); Carbon Dioxide 27 mmol/L (22-29)
[2019-07-08 22:01] LABS: Bilirubin, Total 0.4 mg/dL (0.2-1.2)
[2019-07-08 22:02] LABS: Alkaline Phosphatase 97 U/L (40-110)
[2019-07-08 22:03] LABS: BUN (Urea Nitrogen) 26 mg/dL (9.8-20.1)
[2019-07-08 22:04] LABS: AST (SGOT) 1207 U/L (5-34)
[2019-07-08 22:05] LABS: ALT (SGPT) 872 U/L (8-55); CK (CPK) 241 U/L (29-168); Lipase 82 U/L (8-78)
--- NOTE | 2019-07-08 22:07 | PDOC.EVN ---
Event Note - Event Note Event Note: [id number]
[2019-07-08 22:10] LABS: Actual Bicarbonate (HCO3a) 35.2 mEq/L (22-28); Analyzer IN Cardio ER; Base Excess (BEa) 6.3 mEq/L (-2.0 to +3.0); Calcium, Ionized 1.24 mmol/L (1.12-1.30); Carboxyhemoglobin (COHb) 0.7 gm% (0.0-3.0); Hemoglobin (Hb) 10.5 g/dL (12.0-16.0); O2 Tension (PaO2) 75.3 mmHg (80.0-100.0); Potassium - ABG Lab 4.05 mmol/L (3.70-5.30); pH, Arterial 7.26 (7.35-7.45)
[2019-07-08 22:11] LABS: CO2 Tension 79.6 mmHg (35.0-45.0)
[2019-07-08 22:12] LABS: Puncture Site RRA
--- NOTE | 2019-07-08 22:15 | RAD ---
EXAM: CHEST ONE VIEW HISTORY: Post intubation. COMPARISON: 07/08/2019 at 1755 hours. FINDINGS: Endotracheal tube is now noted in place with the tip overlying the level of the T3 vertebral body and above the level of the violette. There has also been interval placement of a left subclavian central venous catheter with tip overlying the region of the caval atrial junction. The heart is magnified by projection but is in enlarged. Pulmonary vasculature is within normal limits. Linear density is seen at the left lung base which may represent atelectasis. Focal area of pneumonitis cannot be entir hansel excluded. Multiple bilateral rib fractures are again seen, and there is severe bilateral glenohumeral osteoarthropathy with remodeling of each glenoid as well as each humeral head. IMPRESSION: 1. Interval placement of endotracheal tube and left subclavian central venous catheter. No pneumothor ax or pleural effusion is seen. 2. Cardiomegaly without evidence of CHF. 3. Linear patchy density left lung base probably related to subsegmental atelectasis. Focal area of p neumonitis cannot be entirely excluded. 4. Multiple remote bilateral rib fractures and severe bilateral glenohumeral osteoarthropathy.
[2019-07-08 22:18] LABS: Calc. Creatinine Clearance 0 mL/min (70-130); Estimated GFR-MDRD 38
[2019-07-08 22:24] LABS: Actual Bicarbonate (HCO3a) 33.6 mEq/L (22-28); Analyzer IN Cardio ER; Base Excess (BEa) 10.4 mEq/L (-2.0 to +3.0); CO2 Tension 39.5 mmHg (35.0-45.0); Calcium, Ionized 1.16 mmol/L (1.12-1.30); Carboxyhemoglobin (COHb) 0.5 gm% (0.0-3.0); Hemoglobin (Hb) 10.2 g/dL (12.0-16.0); Potassium - ABG Lab 3.86 mmol/L (3.70-5.30)
[2019-07-08 23:03] LABS: Critical Call Chem Troponin I RESULT DECREASING; Troponin I 3.902 ng/mL (< 0.028)
[2019-07-08 23:38] LABS: O2 Tension (PaO2) 54.3 mmHg (80.0-100.0); pH, Arterial 7.55 (7.35-7.45)
[2019-07-08 23:39] LABS: ALV-art Gradient 145.875 (0-20); Puncture Site LRA
[2019-07-08] MEDS ORDERED: Propofol 1,000 MG/100 ML VIAL IV ONE (23:53)
[2019-07-09] MEDS ORDERED: Amiodarone 150 MG, Admixture Fee 1 EACH in Dextrose 5% in Water 100 ML IVPB SCH (00:45)
[2019-07-09] MEDS: Amiodarone 450 MG, Admixture Fee 1 EACH in Dextrose 5% in Water 250 ML IVPB SCH ×3 (01:27→23:24)
--- NOTE | 2019-07-09 01:38 | HP ---
CHIEF COMPLAINT: Altered mental status and evaluation for overdose. HISTORY OF PRESENT ILLNESS: Ms. Jurado is a 58-year-old female with past medical history of hepatitis C, diabetes mellitus, hypertension, obesity, hyperlipidemia, cirrhosis?, among others, is being transferred from [facility] after she presented with drug overdose, opiates. As per report, the patient initially responded to Narcan. When the patient arrived, she was on non-rebreather. She was initially screaming and confused and hallucinating. Blood work in the ED including ABG showed acute respiratory acidosis with a paCO2 in the 90s and pH of 7.20. The patient was placed on BiPAP. The patient remains confused and ED physician went ahead and intubated the patient. Currently, the patient is intubated on mechanical ventilator, sedated. No further history can be obtained at this time. The patient was found to have an elevated troponin of 4.1. EKG showed nonspecific ST changes. ED physician consulted with master control technician. The patient was given one dose of Lovenox. Also, x-ray shows opacities, pneumonia cannot be entirely ruled out. The patient was covered with IV antibiotics. The patient is being admitted to the intensive care unit for further management. PAST MEDICAL HISTORY: 1. Diabetes mellitus. 2. Hypertension. 3. Obesity. 4. Hepatitis C. 5. Cirrhosis. 6. Hyperlipidemia. PAST SURGICAL HISTORY: 1. Back surgery. 2. Bilateral shoulder surgery. 3. Hysterectomy. 4. Hip surgery. 5. Exploratory laparotomy. SOCIAL HISTORY: As per records, no smoking history and no history of alcohol use, but there is a history of drug abuse of marijuana. HOME MEDICATIONS: Please see home medication reconciliation form for updated medications. ALLERGIES: ALLERGIC TO ADHESIVES. REVIEW OF SYSTEMS: Unable to obtain. The patient is intubated and mechanically ventilated. FAMILY HISTORY: Unable to obtain. The patient is intubated, mechanically ventilated. PHYSICAL EXAMINATION: GENERAL: The patient is intubated, mechanically ventilated. VITAL SIGNS: Blood pressure 147/74, pulse is 82, respiratory rate is 24, temperature 97.6. HEAD AND NECK: Head is normocephalic, atraumatic. NECK: Supple. CHEST: Coarse bilateral breath sounds. HEART: S1, S2. Regular. ABDOMEN: Obese, soft. Bowel sounds present. NEUROLOGIC: Intubated, sedated, unable to assess. PSYCHIATRIC: Intubated, sedated, unable to assess. EXTREMITIES: No clubbing. No cyanosis. LABORATORY DATA: Sodium 146, potassium 4.0, BUN is 22, creatinine 1.4. Troponin is 4.1. ABG showed a pH of 7.20, PaCO2 of 98, PaO2 is 66. Troponin is elevated at 4.1, acetaminophen level is less than 6, salicylate is less than 8. WBC count is 15.2, hemoglobin 9.7, platelets 145. Urine drug screen is positive for opiates and tricyclic. CT angiogram of the chest, some output through opacification, but no findings to suggest central pulmonary embolus. There are parenchymal densities at the posterior aspect of the right lower lobe and posterior aspect of each upper lobe, which is likely attributable to atelectasis. However, multifocal pneumonia could not be entirely ruled out. There are also multiple removed bilateral rib fractures. ASSESSMENT AND PLAN: 1. Acute hypercapnic respiratory failure. 2. Acute metabolic encephalopathy. 3. Drug overdose. 4. Non ST elevation myocardial infarction. 5. Elevated BNP. 6. ?Heart failure. 7. Obesity. 8. Diabetes mellitus. 9. Hypertension. 10. Hepatitis C. 11. Liver cirrhosis. PLAN: 1. Admit to the ICU. 2. Continue full ventilator support. 3. Septic workup done in the ED. 4. The patient was given one dose of IV antibiotics for suspected pneumonia to be assessed in a.m. 5. The patient was given Lovenox for a non-ST elevation myocardial infarction. 6. Cardiology is consulted for evaluation and further management. 7. Aspirin. 8. Consult Pulmonary for critical care management and ventilator management. 9. Reconcile home medications. 10. Gastrointestinal prophylaxis. 11. Deep venous thrombosis prophylaxis. The patient is on subcu Lovenox. 12. Reconcile home medications. 13. Expected length of stay 3 midnights or more. Job ID: [id number]
[2019-07-09 02:21] LABS: Critical Call Chem Troponin I RESULT DECREASING; Troponin I 3.383 ng/mL (< 0.028)
[2019-07-09] MEDS ORDERED: hydrALAZINE 20 MG/ML VIAL SLOW IVP SCH (02:45)
[2019-07-09 05:55] LABS: ALT (SGPT) 1070 U/L (8-55); AST (SGOT) 1582 U/L (5-34); Albumin 3.3 g/dL (3.5-5.0); Alkaline Phosphatase 90 U/L (40-110); Anion Gap 17 mmol/L (10-20); BUN (Urea Nitrogen) 28 mg/dL (9.8-20.1); Bilirubin, Total 0.7 mg/dL (0.2-1.2); Calc. Creatinine Clearance 85 mL/min (70-130); Calcium 9.4 mg/dL (7.8-10.44); Carbon Dioxide 30 mmol/L (22-29); Cardiac Risk 4.6 (Less than 4.5); Chloride 98 mmol/L (98-107); Cholesterol 73 mg/dl (< 200 Desired); Estimated GFR-MDRD 40; Globulin 2.7 g/dL (2.4-3.5); Glucose 111 mg/dL (70-105); HDL Cholesterol 16 mg/dL (>60 Neg Risk); LDL Cholesterol, Calculated 7 mg/dL; Potassium 3.1 mmol/L (3.5-5.1); Sodium 142 mmol/L (136-145); Triglycerides 250 mg/dL (Less than 150)
[2019-07-09 06:05] LABS: #Basophils 0.1 thou/uL (0.0-0.2); #Eosinphils 0.1 thou/uL (0.0-0.7); #Lymphocytes 1.4 thou/uL (1.20-3.40); #Monocytes 0.7 thou/uL (0.11-0.59); #Neutrophils 9.3 thou/uL (1.40-6.50); %Basophils 0.6 % (0.0-1.0); %Eosinophils 0.6 % (0.0-10.0); %Lymphocytes 11.8 % (21.0-51.0); %Neutrophils 81.1 % (42.0-75.0); Anisocytosis SLIGHT = 6-15 cells (100X) (0-5/hpf); Hemoglobin 8.9 g/dL (12.0-16.0); Hypochromia SLIGHT = 6-15 cells (100X) (0-5/hpf); MDiff Complete? YES; Mean Corpuscular HGB CONC 30.7 g/dL (32.0-36.0); Mean Corpuscular Hemoglobin 26.9 pg (27.0-31.0); Mean Corpuscular Volume 87.7 fL (78.0-98.0); Mean Platelet Volume 7.5 fL (7.4-10.4); Ovalocytes SLIGHT = 2-5 cells (100X) (0-1/hpf); Platelet Count 158 thou/uL (130-400); Platelet Morphology Comment Appears Adequate; Polychromasia SLIGHT = 2-3 cells (100X) (0-2/hpf); RBC Distribution Width 17.7 % (11.5-14.5); Red Blood Cell (RBC) Count 3.29 mill/uL (4.20-5.40); White Blood Cell (WBC) Count 11.5 thou/uL (4.8-10.8)
[2019-07-09 07:24] LABS: Actual Bicarbonate (HCO3a) 26.8 mEq/L (22-28); Base Excess (BEa) 5.9 mEq/L (-2.0 to +3.0); CO2 Tension 26.1 mmHg (35.0-45.0); Calcium, Ionized 1.15 mmol/L (1.12-1.30); Carboxyhemoglobin (COHb) 0.9 gm% (0.0-3.0); Hemoglobin (Hb) 9.1 g/dL (12.0-16.0); O2 Tension (PaO2) 62.9 mmHg (80.0-100.0); Potassium - ABG Lab 2.99 mmol/L (3.70-5.30)
[2019-07-09 07:36] LABS: ALV-art Gradient 189.675 (0-20); Puncture Site LRA; pH, Arterial 7.63 (7.35-7.45)
[2019-07-09] MEDS ORDERED: Heparin 5,000 UNITS/ML VIAL SC SCH (09:00)
[2019-07-09] MEDS ORDERED: Aspirin 300 MG Suppository PR SCH (09:00)
[2019-07-09] MEDS ORDERED: FLU VACC QS2019-20(6MOS UP)/PF 60 MCG/0.5 ML SYRINGE IM ONE (09:00)
[2019-07-09 09:20] LABS: Magnesium 2.4 mg/dL (1.6-2.6)
--- NOTE | 2019-07-09 10:02 | PDOC.HOSPP ---
- Subjective Encounter Date: 07/09/19 Encounter Time: 09:57 Subjective: 58 y/o obese female with DM, Cirrhosis, HTN and others admitted on transfer from [facility] with mental status changes after opiate overdose. Responsiveness reportedly improved after narcan but patient remained confused and hallucinating and was found to have acute hypercarbic respiratory failure which did not improve with BIPAP hence was intubated. Patient also abnormal ST changes of EKG and elevated troponin hence was started on antithrombotic therapy. Also started on amiodarone for VTach. more awake this morning and cooperative and extubation is planned. - Objective Vital Signs & Weight: Vital Signs (12 hours) Temp Pulse Resp BP Pulse Ox 07/09/19 09:01 95 07/09/19 08:00 99.5 F 11 L 07/09/19 07:11 64 138/69 07/09/19 06:00 18 07/09/19 04:00 98.3 F 18 07/09/19 02:41 57 L 177/94 H 07/09/19 02:00 18 07/09/19 01:45 95 07/09/19 01:30 18 07/09/19 01:00 98.5 F Weight Admit Weight 264 lb 5.348 oz Weight 264 lb 5.348 oz Most Recent Monitor Data Heart Rate from ECG 74 NIBP 153/87 NIBP BP-Mean 109 Respiration from ECG 16 SpO2 94 I&O: 07/08/19 07/09/19 07/10/19 06:59 06:59 06:59 Intake Total 365 200 Output Total 525 100 Balance -160 100 Result Diagrams: 07/09/19 05:00 07/09/19 05:00 Hospitalist ROS - Medication Medications: Active Medications Generic Name Dose Route Start Last Admin Trade Name Freq PRN Reason Stop Dose Admin Aspirin 300 mg 07/09/19 09:00 07/09/19 08:28 Aspirin MS 300 mg DAILY GAETANO Administration Amiodarone HCl 450 mg/ 259 mls @ 0 mls/hr 07/09/19 01:00 07/09/19 09:19 Miscellaneous Medication 1 IVPB 259 mls each/ Dextrose/Water INF GAETANO Administration Protocol As Directed Potassium Chloride 40 meq 07/09/19 08:30 07/09/19 08:46 Klor-Con PER TUBE 07/09/19 10:30 40 meq NOW GAETANO Administration Propofol 1,000 mg 07/08/19 21:51 07/09/19 04:40 Diprivan IV 08/07/19 21:51 1,000 mg INF PRN Administration TO ACHIEVE GOAL RASS Protocol - Exam General Appearance: awake alert General - other findings: obese Eye: anicteric sclera Eye - other findings: ET and OG tubes in place ENT: normocephalic atraumatic Neck: supple, symmetric Neck - other findings: short thick neck with excess soft tissue Heart: RRR Respiratory - other findings: ventilator transmitted breath sound noted Gastrointestinal: soft, non-tender, non-distended, normal bowel sounds Gastrointestinal - other findings: obese Extremities - other findings: mild bilateral hand edema noted. No leg edema noted Skin - other findings: scattered bilateral upper limb bruises at various stages of resolution Neurological: cranial nerve grossly intact, no focal deficits Psychiatric: A&O x 3 Hosp A/P (1) Acute respiratory failure with hypercapnia Code(s): J96.02 - ACUTE RESPIRATORY FAILURE WITH HYPERCAPNIA Status: Acute (2) Acute non-ST elevation myocardial infarction (NSTEMI) Code(s): I21.4 - NON-ST ELEVATION (NSTEMI) MYOCARDIAL INFARCTION Status: Acute (3) Ventricular tachyarrhythmia Code(s): I47.2 - VENTRICULAR TACHYCARDIA Status: Acute (4) Abnormal LFTs (liver function tests) Code(s): R94.5 - ABNORMAL RESULTS OF LIVER FUNCTION STUDIES Status: Acute (5) Opiate overdose Code(s): T40.601A - POISONING BY UNSP NARCOTICS, ACCIDENTAL, INIT Status: Acute (6) Pulmonary infiltrates Code(s): R91.8 - OTHER NONSPECIFIC ABNORMAL FINDING OF LUNG FIELD Status: Acute (7) Toxic metabolic encephalopathy Code(s): G92 - TOXIC ENCEPHALOPATHY Status: Acute (8) Hypokalemia Code(s): E87.6 - HYPOKALEMIA Status: Acute (9) HTN (hypertension) Code(s): I10 - ESSENTIAL (PRIMARY) HYPERTENSION Status: Acute (10) DM II (diabetes mellitus, type II), controlled Code(s): E11.9 - TYPE 2 DIABETES MELLITUS WITHOUT COMPLICATIONS Status: Chronic Qualifiers: Diabetes mellitus ocean transportation intermediary insulin use: with retirement use Diabetes mellitus complication status: with unspecified complications Qualified Code(s) : E11.8 - Type 2 diabetes mellitus with unspecified complications; Z79.4 - ferry terminal agent (current) use of insulin (11) Hepatitis C Code(s): B19.20 - UNSPECIFIED VIRAL HEPATITIS C WITHOUT HEPATIC COMA Status: Chronic Qualifiers: Viral hepatitis chronicity: chronic Hepatic coma status: without hepatic coma Qualified Code(s): B18.2 - Chronic viral hepatitis C (12) Hypothyroidism Code(s): E03.9 - HYPOTHYROIDISM, UNSPECIFIED Status: Chronic Qualifiers: Hypothyroidism type: unspecified Qualified Code(s): E03.9 - Hypothyroidism , unspecified (13) Morbid obesity Code(s): E66.01 - MORBID (SEVERE) OBESITY DUE TO EXCESS CALORIES Status: Chronic (14) SANDI (obstructive sleep apnea) Code(s): G47.33 - OBSTRUCTIVE SLEEP APNEA (ADULT) (PEDIATRIC) Status: Chronic (15) ANALY (acute kidney injury) Code(s): N17.9 - ACUTE KIDNEY FAILURE, UNSPECIFIED Status: Acute - Plan Vent management as per Pulmonary Antithrombotic therapy to continue. Awaiting cardiology evaluation Replete serum potassium and get serum magnessium Continue amiodarone. IVF therapy contemplated. Get urine electrolytes. Continue empirical antibiotics. Monitor renal function and liver function.
[2019-07-09] MEDS ORDERED: Dextrose 50% Abboject 50 ML SYRINGE SLOW IVP PRN (10:29)
[2019-07-09] MEDS ORDERED: Dextrose 5% in Water 1,000 ML IV PRN (10:29)
[2019-07-09] MEDS ORDERED: HumaLOG 300 UNITS/3 ML VIAL SC PRN (10:29)
[2019-07-09] MEDS ORDERED: Furosemide 40 MG/4 ML VIAL SLOW IVP SCH (10:30)
[2019-07-09] MEDS ORDERED: Insulin Glargine 20 UNITS in Pre-Filled Syringe 1 EACH SC SCH (10:45)
--- NOTE | 2019-07-09 10:51 | CON ---
DATE OF CONSULTATION: 07/09/2019 SERVICE: Pulmonary Medicine. REASON FOR CONSULTATION: ICU patient/intubated. HISTORY OF PRESENT ILLNESS: The patient is a 58-year-old white female with past medical history significant for chronic pain issues. She is on chronic pain medications including opiates. She also is on anxiolytics. Either way, she started having onset of chest discomfort that came into her chest. She was taking multiple medications in order to alleviate this discomfort and ultimately, got sedated to the point where she really was not protecting her airway or breathing well. She got some Narcan. She woke up and went right back to sleep. As such, she was intubated for airway protection and tucked into the ICU. Overnight, she developed a non- ST elevation NV. She was initiated on full-dose anticoagulation. Cardiology consultation is currently pending. She is currently awake on mechanical ventilator. She is on a sedation holiday presently. She denies any current fevers or chills. She is adamant that the tube be removed. We placed her on a spontaneous breathing trial. Hopefully at the end of this thing, she will be able to liberate successfully from mechanical ventilation. Because she is intubated, I really cannot get any historical elements from the patient directly. PAST MEDICAL HISTORY: 1. Type 2 diabetes mellitus. 2. Hypertension. 3. Dyslipidemia. 4. Cirrhosis. 5. Hepatitis C, chronic. 6. Morbid obesity. PAST SURGICAL HISTORY: 1. Bilateral shoulder surgeries. 2. Back surgery. 3. Hysterectomy. 4. Hip surgery. 5. Exploratory laparotomy. SOCIAL HISTORY: Based on records, she is negative for alcohol or tobacco. She uses marijuana. FAMILY HISTORY: Noncontributory. ALLERGIES: NO KNOWN DRUG ALLERGIES. APPARENTLY, SHE IS ALLERGIC TO ADHESIVES, HOWEVER. MEDICATIONS: List of her inpatient medications were reviewed. No specific updates were made at this time. REVIEW OF SYSTEMS: This cannot be obtained as the patient is currently intubated under the influence of a little bit of sedation. PHYSICAL EXAMINATION: VITAL SIGNS: Afebrile; pulse 79; blood pressure 159/85; respirations 24; and saturation 99%, currently on 27% FiO2. GENERAL: The patient is awake and alert, in no apparent distress. LUNGS: Decent air entry. Dependent crackles are present. Rhonchi are present , but clear with cough. HEART: Normal rate. Regular. ABDOMEN: Soft, nontender, and nondistended. Bowel sounds are positive. MUSCULOSKELETAL: No cyanosis or clubbing. There is trace to 1+ pitting throughout. NEUROLOGIC: Grossly nonfocal. LABORATORY DATA: WBC 11.5, hemoglobin 8.9, and platelets 158,000. PH of 7.63, pCO2 of 26, and pO2 of 63. Creatinine downtrending to 1.36, BUN 28. Basic metabolic profile is otherwise unremarkable. Her potassium is 3.1. AST and ALT are up-trending to 1500 and 1100, respectively. CK 191 and downtrending, troponin is downtrending to 3.4. Liver function studies are otherwise unremarkable. Lipase is minimally elevated at 82. Magnesium 2.4. Urinalysis is unremarkable. Tricyclics and opiates are positive on the urine drug screen. It is negative for salicylates, acetaminophen, or alcohol. Blood cultures x2 are unremarkable. IMAGING DATA: CTA of the chest demonstrates no evidence of a pulmonary embolism. Atelectasis of the bibasilar regions is present. I see very scant amount of air bronchograms. She has multiple healed rib fractures on bilateral chest tenorio. Her pulmonary artery is narrow in size. That being said, she has four-chamber enlargement. The RV, RA, and left atrium all seem to be distended. There is no being out of the septum of the left ventricle. ASSESSMENT: 1. Acute on chronic hypoxic and hypercapnic respiratory failure, resolved. 2. Therapeutic misadventure with opiates and anxiolytics. 3. Acute on chronic diastolic heart failure, suspected. 4. [id number] myocardial infarction. 5. Shock liver. 6. Chronic kidney disease. 7. Type 2 diabetes mellitus. DISCUSSION AND PLAN: We will complete our spontaneous breathing trial. I will replace the potassium. We will diurese the patient through time. If she meets criteria, extubation will be considered. We may need to go straight to BiPAP while more of these sleepy medications get out of her system. Pulmonary/Critical Care will follow very closely. CRITICAL CARE TIME: 30 minutes. Job ID: [id number] MTDD
[2019-07-09] MEDS ORDERED: Potassium Chloride 20 MEQ TAB PO SCH (12:00)
[2019-07-09 12:14] LABS: Creatinine, Urine 69.99 mg/dL (47-110)
--- NOTE | 2019-07-09 12:31 | CON ---
DATE OF CONSULTATION: 07/09/2019 REASON FOR CONSULTATION: Non-STEMI. PRIMARY SCENIC ARTIST: Ulises Piedra MD. HISTORY OF PRESENT ILLNESS: Ms. Jurado is a very pleasant 58-year-old white female, who comes to the hospital for respiratory arrest. She has chronic pain issues and apparently took a little bit more than she could tolerate and her breathing became an issue when EMS arrived. She received Narcan and actually worked her up briefly, but then went right back to sleep, so she was intubated to protect her airway. This morning, she is already wide awake and was able to get her extubated. During all this, she had troponins checked, which were elevated, so Cardiology has been consulted for val-[id number] WI. Ms. Jurado denies any chest pain, tightness, or pressure, but admits to pain on the middle of her back and she has chronic pain, and this pain is worse when she moves. PAST MEDICAL HISTORY: 1. Type 2 diabetes. 2. Hypertension. 3. Hyperlipidemia. 4. Cirrhosis. 5. Hepatitis C. 6. Morbid obesity. PAST SURGICAL HISTORY: 1. Bilateral shoulder surgeries. 2. Back surgery. 3. Hysterectomy. 4. Hip surgery. 5. Exploratory laparotomy in the past. SOCIAL HISTORY: No alcohol or tobacco. Apparently, she uses marijuana. FAMILY HISTORY: No early coronary artery disease. OUTPATIENT MEDICATIONS: 1. Insulin Levemir. 2. Potassium chloride. 3. Micardis 40 mg b.i.d. 4. Levothyroxine 75 mcg a day. 5. Neurontin. 6. Metformin. 7. Rosuvastatin 40 mg nightly. 8. Furosemide 40 mg b.i.d. 9. Nifedipine 60 mg a day. 10. Losartan 25 mg a day. 11. Flexeril is in her medication list as well, but has not been confirmed yet. ALLERGIES: NO KNOWN DRUG ALLERGIES, BUT SHE DOES HAVE REACTION TO ADHESIVES. REVIEW OF SYSTEMS: A 12-point review of systems was done, negative unless stated in the history of present illness. PHYSICAL EXAMINATION: VITAL SIGNS: Temperature 99.5, pulse rate 79, respiratory rate 14, saturating 100% on room air, and blood pressure 146/76. GENERAL: Awake, alert, and oriented x3. No distress. HEENT: Normocephalic and atraumatic. NECK: Supple. LUNGS: Distant breath sounds. CARDIOVASCULAR: S1 and S2. No S3. No murmurs. ABDOMEN: Soft. Positive bowel sounds. EXTREMITIES: No edema. SKIN: Warm and dry. LABORATORY DATA: Laboratory work was reviewed; CBC with a white count of 15, hemoglobin of 9.7 down to 8.9, and platelet count of a 158. ABG was reviewed. Chemistries were reviewed; creatinine of 1.36, down from 1.41. This is much higher than her baseline at 0.7. AST and ALT are extremely elevated consistent with shock liver. Total bilirubin and alkaline phosphatase are normal. CK was 191. Troponin was on admission at 4, down to 3.9 and then 3.3. BNP was 793. Albumin of 3.3. Triglycerides of 250. Cholesterol total of 73. LDL of 7 and HDL of 16. Lipase was 82. UA with 1+ blood. Toxicology was positive for opiates and tricyclics. ASSESSMENT/PLAN: 1. Respiratory insufficiency requiring mechanical ventilation, resolved. 2. Chronic pain. 3. Pain medicine overdose. 4. Chronic hepatitis C and cirrhosis. 5. Morbid obesity. 6. Sgv-NA-dkgywvjib myocardial infarction. PLAN: 1. She will certainly benefit from a heart catheterization at this point. We spoke about the risks and benefits of the procedure. Risks included, but are not limited to stroke, [place], , bleeding, need for blood transfusion, limb loss, and organ loss. She agrees to proceed. We spoke about possibly needing an emergency bypass surgery. Currently, she is not a good candidate for bypass surgery given her sedentary lifestyle. She does not really walk, only in her house, when she goes outside she has a wheelchair or scooter. She is not a good candidate for bypass and if that is what is needed after heart catheterization, I would recommend medical therapy at that point. Otherwise bare metal stents if needed, given her cirrhosis. 2. Further recommendations per results of coronary angiogram. We will plan on doing this probably on Thursday. Currently, she cannot lay flat. 3. Her CT chest showed no evidence of CHF. She might have a little pneumonitis. Currently, she is still on BiPAP. Thank you for letting us participate in the care of your patient. We will follow. 45 minutes of critical care time. Job ID: [id number]
[2019-07-09] MEDS: HumaLOG 300 UNITS/3 ML VIAL SC SCH ×3 (12:34→20:14)
[2019-07-09] MEDS: Gabapentin 300 MG CAP PO SCH (20:14)
[2019-07-09] MEDS: Enoxaparin Sodium 120 MG/0.8 ML SYRINGE SC SCH (20:14)
[2019-07-09] MEDS: Insulin Glargine 15 UNITS in Pre-Filled Syringe 1 EACH SC SCH (20:30)
[2019-07-09] MEDS ORDERED: Famotidine/PF 20 mg/2ml Vial SLOW IVP SCH (21:00)
[2019-07-10 05:46] LABS: Phosphorus 3.8 mg/dL (2.3-4.7)
[2019-07-10 05:50] LABS: ALT (SGPT) 888 U/L (8-55); AST (SGOT) 709 U/L (5-34); Albumin 3.3 g/dL (3.5-5.0); Alkaline Phosphatase 90 U/L (40-110); Anion Gap 12 mmol/L (10-20); BUN (Urea Nitrogen) 27 mg/dL (9.8-20.1); Bilirubin, Total 0.4 mg/dL (0.2-1.2); Calc. Creatinine Clearance 80 mL/min (70-130); Calcium 9.3 mg/dL (7.8-10.44); Carbon Dioxide 35 mmol/L (22-29); Chloride 99 mmol/L (98-107); Estimated GFR-MDRD 38; Globulin 2.6 g/dL (2.4-3.5); Glucose 104 mg/dL (70-105); Magnesium 2.4 mg/dL (1.6-2.6); Potassium 3.9 mmol/L (3.5-5.1); Protein, Total 5.9 g/dL (6.0-8.3); Sodium 142 mmol/L (136-145)
[2019-07-10 06:19] LABS: #Eosinphils 0.1 thou/uL (0.0-0.7); #Lymphocytes 1.2 thou/uL (1.20-3.40); #Monocytes 0.9 thou/uL (0.11-0.59); #Neutrophils 9.8 thou/uL (1.40-6.50); %Eosinophils 0.7 % (0.0-10.0); %Lymphocytes 9.8 % (21.0-51.0); %Monocytes 7.4 % (0.0-10.0); %Neutrophils 82.2 % (42.0-75.0); Anisocytosis SLIGHT = 6-15 cells (100X) (0-5/hpf); Hemoglobin 8.3 g/dL (12.0-16.0); Hypochromia SLIGHT = 6-15 cells (100X) (0-5/hpf); MDiff Complete? YES; Mean Corpuscular HGB CONC 29.6 g/dL (32.0-36.0); Mean Corpuscular Hemoglobin 26.7 pg (27.0-31.0); Mean Corpuscular Volume 90.4 fL (78.0-98.0); Mean Platelet Volume 7.5 fL (7.4-10.4); Ovalocytes SLIGHT = 2-5 cells (100X) (0-1/hpf); Platelet Count 144 thou/uL (130-400); Platelet Morphology Comment Appears Adequate; Polychromasia SLIGHT = 2-3 cells (100X) (0-2/hpf); RBC Distribution Width 17.8 % (11.5-14.5); White Blood Cell (WBC) Count 11.9 thou/uL (4.8-10.8)
[2019-07-10] MEDS ORDERED: Furosemide 40 MG/4 ML VIAL SLOW IVP SCH (09:00)
[2019-07-10] MEDS: Aspirin 81 mg Enteric Coated Tablet PO SCH (09:36)
[2019-07-10] MEDS: Famotidine 20 MG TAB PO SCH (09:36)
[2019-07-10] MEDS: HumaLOG 300 UNITS/3 ML VIAL SC SCH ×4 (09:37→20:28)
--- NOTE | 2019-07-10 11:10 | PDOC.HOSPP ---
- Subjective Encounter Date: 07/10/19 Encounter Time: 10:06 Subjective: 58 y/o obese female with DM, Cirrhosis, HTN and others admitted on transfer from [facility] with mental status changes after opiate overdose. Responsiveness reportedly improved after narcan but patient remained confused and hallucinating and was found to have acute hypercarbic respiratory failure which did not improve with BIPAP hence was intubated. Patient found to have abnormal ST changes of EKG associated with elevated troponin as well as wide complex tachycardia hence was started on antithrombotic therapy and amiodarone. Extubated to BIPAP on 07/09/2019. still requiring BIPAP. More awake conversational and cooperative. - Objective Vital Signs & Weight: Vital Signs (12 hours) Temp Pulse Pulse Ox 07/10/19 08:00 98.5 F 96 07/10/19 06:28 66 07/10/19 03:00 97.6 F 07/10/19 00:00 98 F Weight Admit Weight 264 lb 5.348 oz Weight 260 lb 2.327 oz Most Recent Monitor Data Heart Rate from ECG 69 NIBP 148/80 NIBP BP-Mean 102 Respiration from ECG 22 SpO2 96 I&O: 07/09/19 07/10/19 07/11/19 06:59 06:59 06:59 Intake Total 365 733 Output Total 525 1135 155 Balance -160 -402 -155 Result Diagrams: 07/10/19 05:15 07/10/19 05:15 Additional Labs: Accuchecks 07/10/19 07/10/19 07/09/19 09:42 05:17 20:02 POC Glucose 146 H 114 H 183 H 07/09/19 07/09/19 17:25 11:38 POC Glucose 193 H 115 H Hospitalist ROS - Medication Medications: Active Medications Generic Name Dose Route Start Last Admin Trade Name Freq PRN Reason Stop Dose Admin Aspirin 81 mg 07/10/19 09:00 07/10/19 09:36 Ecotrin PO 81 mg DAILY GAETANO Administration Enoxaparin Sodium 120 mg 07/09/19 21:00 07/09/19 20:14 Lovenox SC 120 mg 2100 GAETANO Administration Famotidine 20 mg 07/10/19 09:00 07/10/19 09:36 Pepcid PO 20 mg DAILY GAETANO Administration Furosemide 40 mg 07/10/19 09:00 07/10/19 09:36 Lasix SLOW IVP 40 mg DAILY GAETANO Administration Gabapentin 300 mg 07/09/19 21:00 07/09/19 20:14 Neurontin PO 300 mg HS GAETANO Administration Amiodarone HCl 450 mg/ 259 mls @ 0 mls/hr 07/09/19 01:00 07/09/19 23:24 Miscellaneous Medication 1 IVPB 259 mls each/ Dextrose/Water INF GAETANO Administration Protocol As Directed Insulin Glargine 15 units/ 0.15 mls @ 0 mls/hr 07/09/19 21:00 07/09/19 20:30 Miscellaneous Medication SC Not Given HS GAETANO Insulin Human Lispro 7 units 07/09/19 11:30 07/10/19 09:37 Humalog SC Not Given ACHS GAETANO Pantoprazole Sodium 40 mg 07/10/19 09:00 07/10/19 09:36 Protonix PO 40 mg DAILY GAETANO Administration - Exam General Appearance: awake alert General - other findings: obese Eye: anicteric sclera ENT: normocephalic atraumatic Neck: symmetric, no JVD Heart: RRR Respiratory: no wheezes, no ronchi, normal chest expansion Respiratory - other findings: fair air entry with BIPAP transmitted sound Gastrointestinal: soft, non-tender, non-distended, normal bowel sounds Gastrointestinal - other findings: obese Extremities - other findings: bilateral leg fullness with no obvious edema noted Neurological: cranial nerve grossly intact, no focal deficits Psychiatric: A&O x 3 Hosp A/P (1) Acute respiratory failure with hypercapnia Code(s): J96.02 - ACUTE RESPIRATORY FAILURE WITH HYPERCAPNIA Status: Acute (2) Acute non-ST elevation myocardial infarction (NSTEMI) Code(s): I21.4 - NON-ST ELEVATION (NSTEMI) MYOCARDIAL INFARCTION Status: Acute (3) Ventricular tachyarrhythmia Code(s): I47.2 - VENTRICULAR TACHYCARDIA Status: Acute (4) Abnormal LFTs (liver function tests) Code(s): R94.5 - ABNORMAL RESULTS OF LIVER FUNCTION STUDIES Status: Acute (5) Opiate overdose Code(s): T40.601A - POISONING BY UNSP NARCOTICS, ACCIDENTAL, INIT Status: Acute (6) Pulmonary infiltrates Code(s): R91.8 - OTHER NONSPECIFIC ABNORMAL FINDING OF LUNG FIELD Status: Acute (7) Toxic metabolic encephalopathy Code(s): G92 - TOXIC ENCEPHALOPATHY Status: Acute (8) Hypokalemia Code(s): E87.6 - HYPOKALEMIA Status: Acute (9) HTN (hypertension) Code(s): I10 - ESSENTIAL (PRIMARY) HYPERTENSION Status: Acute (10) DM II (diabetes mellitus, type II), controlled Code(s): E11.9 - TYPE 2 DIABETES MELLITUS WITHOUT COMPLICATIONS Status: Chronic Qualifiers: Diabetes mellitus senior living insulin use: with senior living use Diabetes mellitus complication status: with unspecified complications Qualified Code(s) : E11.8 - Type 2 diabetes mellitus with unspecified complications; Z79.4 - laborer marine terminal (current) use of insulin (11) Hepatitis C Code(s): B19.20 - UNSPECIFIED VIRAL HEPATITIS C WITHOUT HEPATIC COMA Status: Chronic Qualifiers: Viral hepatitis chronicity: chronic Hepatic coma status: without hepatic coma Qualified Code(s): B18.2 - Chronic viral hepatitis C (12) Hypothyroidism Code(s): E03.9 - HYPOTHYROIDISM, UNSPECIFIED Status: Chronic Qualifiers: Hypothyroidism type: unspecified Qualified Code(s): E03.9 - Hypothyroidism , unspecified (13) Morbid obesity Code(s): E66.01 - MORBID (SEVERE) OBESITY DUE TO EXCESS CALORIES Status: Chronic (14) SANDI (obstructive sleep apnea) Code(s): G47.33 - OBSTRUCTIVE SLEEP APNEA (ADULT) (PEDIATRIC) Status: Chronic (15) ANALY (acute kidney injury) Code(s): N17.9 - ACUTE KIDNEY FAILURE, UNSPECIFIED Status: Acute (16) Acute on chronic diastolic (congestive) heart failure Code(s): I50.33 - ACUTE ON CHRONIC DIASTOLIC (CONGESTIVE) HEART FAILURE Status : Acute (17) Hepatopathy Code(s): K76.9 - LIVER DISEASE, UNSPECIFIED Status: Acute - Plan BIPAP management as per Pulmonary Antithrombotic therapy to continue. [facility] planning in progress Continue amiodarone as per cardiology Consider IVF in view of planned cardiac cath tomorrow. Antibiotic discontinued inview of no overt evidence of pneumonia Monitor renal function and liver function.
[2019-07-10] MEDS: Insulin Glargine 15 UNITS in Pre-Filled Syringe 1 EACH SC SCH ×2 (11:15→20:28)
--- NOTE | 2019-07-10 13:33 | PDOC.CPN ---
- Subjective Date: 07/10/19 Time: 13:31 Interval history: She is doing better. Off BiPAP and able to lay flat. - Review of Systems General: denies: fever/chills, weight/appetite/sleep changes, night sweats, fatigue Respiratory: reports: cough. denies: congestion, shortness of breath, exercise intolerance Cardiovascular: denies: chest pain, palpitation, edema, paroxysmal nocturnal dyspnea, orthopnea Gastrointestinal: denies: nausea, vomiting, diarrhea, constipation, abd pain, GI bleeding Musculoskeletal: denies: pain, tenderness, stiffness, swelling, arthritis/ arthralgias Neurological: denies: numbness, syncope, seizure, weakness - Objective Allergies/Adverse Reactions: Allergies Allergy/AdvReac Type Severity Reaction Status Date / Time adhesive Allergy Verified 01/21/19 02:13 Visit Medications: Current Medications Acetaminophen (Tylenol) 650 mg KS Q4H PRN PRN Reason: Headache/Fever/Mild Pain (1-3) Aspirin (Ecotrin) 81 mg PO DAILY [facility] Last Admin: 07/10/19 09:36 Dose: 81 mg Dextrose/Water (Dextrose 50%) 25 gm SLOW IVP PRN PRN PRN Reason: Hypoglycemia Enoxaparin Sodium (Lovenox) 120 mg SC 2100 [facility] Last Admin: 07/09/19 20:14 Dose: 120 mg Famotidine (Pepcid) 20 mg PO DAILY [facility] Last Admin: 07/10/19 09:36 Dose: 20 mg Furosemide (Lasix) 40 mg SLOW IVP DAILY [facility] Last Admin: 07/10/19 09:36 Dose: 40 mg Gabapentin (Neurontin) 300 mg PO HS [facility] Last Admin: 07/09/19 20:14 Dose: 300 mg Glucagon (Glucagon) 1 mg IM PRN PRN PRN Reason: Hypoglycemia Amiodarone HCl 450 mg/Miscellaneous Medication 1 each/ Dextrose/Water 259 mls @ 0 mls/hr IVPB INF [facility]; Protocol Last Admin: 07/09/19 23:24 Dose: 259 mls Insulin Glargine 15 units/ (Miscellaneous Medication) 0.15 mls @ 0 mls/hr SC HS [facility] Last Admin: 07/09/19 20:30 Dose: Not Given Insulin Glargine 15 units/ (Miscellaneous Medication) 0.15 mls @ 0 mls/hr SC QAM [facility] Last Admin: 07/10/19 11:15 Dose: 0.15 mls Dextrose/Water (D5w) 1,000 mls @ 0 mls/hr IV .Q0M PRN PRN Reason: Hypoglycemia Insulin Human Lispro (Humalog) 7 units SC ACHS [facility] Last Admin: 07/10/19 12:48 Dose: Not Given Insulin Human Lispro (Humalog) 0 units SC .MODERATE SLIDING SC PRN PRN Reason: Moderate Correctional Scale Nitroglycerin (Nitrostat) 0.4 mg SL Q5MIN PRN PRN Reason: Chest Pain Discontinue Previous Narcotic Pain Medications And Benzodiazepines 1 each FS .ONE [facility] Stop: 08/07/19 21:51 Ondansetron HCl (Zofran) 4 mg IVP Q6H PRN PRN Reason: Nausea/Vomiting Pantoprazole Sodium (Protonix) 40 mg PO DAILY [facility] Last Admin: 07/10/19 09:36 Dose: 40 mg Vital Signs & Weight: Vital Signs Temp Pulse Pulse Ox 07/10/19 08:00 98.5 F 96 07/10/19 06:28 66 07/10/19 03:00 97.6 F Admit Weight 264 lb 5.348 oz Weight 260 lb 2.327 oz - Physical Exam General: alert & oriented x3 HEENT: mucus membranes moist Neck: supple neck Cardiac: regular rate and rhythm, no murmur Lungs: clear to auscultation Neuro: grossly intact Abdomen: active bowel sounds, soft, non-tender Extremities: 1+ LE edema Skin: clear Musculoskeletal: no pain - Labs Result Diagrams: 07/10/19 05:15 07/10/19 05:15 Troponin/CKMB Troponin I 3.383 ng/mL (< 0.028) H* 07/09/19 01:42 - Telemetry Sinus rhythms and dysrhythmias: sinus rhythm - Assessment/Plan Assessment/Plan: 1. NSTEMI. 2. Respiratory failure, improved, secondary to pain medicine OD. 3. Chronic Hep C and cirrhosis. 4. Morbid ebesity PLAN: - Breathing close to baseline and able to lay flat. - Will plan on Doing LHC through the radial approach tomorow. - Dr. Piedra will continue care after that . - BMS if needed given Hx of cirrhosis. - Critical Care Time Critical care time (mins): 30
[2019-07-10] MEDS: Amiodarone 450 MG, Admixture Fee 1 EACH in Dextrose 5% in Water 250 ML IVPB SCH (17:51)
[2019-07-10] MEDS: Sodium Chloride 0.45% 1,000 ML IV SCH (17:51)
[2019-07-10] MEDS: Enoxaparin Sodium 120 MG/0.8 ML SYRINGE SC SCH (20:24)
[2019-07-10] MEDS: Gabapentin 300 MG CAP PO SCH (20:27)
[2019-07-11 04:28] LABS: ALT (SGPT) 804 U/L (8-55); AST (SGOT) 547 U/L (5-34); Albumin 3.1 g/dL (3.5-5.0); Alkaline Phosphatase 85 U/L (40-110); Anion Gap 12 mmol/L (10-20); BUN (Urea Nitrogen) 22 mg/dL (9.8-20.1); Bilirubin, Total 0.5 mg/dL (0.2-1.2); Calc. Creatinine Clearance 103 mL/min (70-130); Calcium 9.3 mg/dL (7.8-10.44); Carbon Dioxide 36 mmol/L (22-29); Chloride 99 mmol/L (98-107); Estimated GFR-MDRD 50; Globulin 2.6 g/dL (2.4-3.5); Glucose 97 mg/dL (70-105); Potassium 3.5 mmol/L (3.5-5.1); Protein, Total 5.7 g/dL (6.0-8.3); Sodium 143 mmol/L (136-145)
[2019-07-11] MEDS: hydrALAZINE 20 MG/ML VIAL SLOW IVP PRN ×2 (05:38→09:17)
[2019-07-11] MEDS: Amiodarone 450 MG, Admixture Fee 1 EACH in Dextrose 5% in Water 250 ML IVPB SCH ×2 (05:51→20:08)
[2019-07-11] MEDS: HumaLOG 300 UNITS/3 ML VIAL SC SCH ×3 (08:09→17:50)
[2019-07-11] MEDS ORDERED: Enoxaparin Sodium 120 MG/0.8 ML SYRINGE SC SCH (08:44)
[2019-07-11] MEDS ORDERED: Furosemide 40 MG/4 ML VIAL SLOW IVP SCH ×3 (09:15→16:30)
[2019-07-11] MEDS: Aspirin 81 mg Enteric Coated Tablet PO SCH (09:17)
[2019-07-11] MEDS: Famotidine 20 MG TAB PO SCH (09:17)
[2019-07-11] MEDS: Insulin Glargine 15 UNITS in Pre-Filled Syringe 1 EACH SC SCH ×2 (09:32→20:17)
--- NOTE | 2019-07-11 09:38 | PRG ---
DATE OF SERVICE: 07/10/2019 SERVICE: Pulmonary Medicine. INTERVAL HISTORY: Last night, the patient had intermittent episodes of desaturation. As such, she got put on a little bit of BiPAP. With this, the alarm quit going off. The patient is little bit somnolent this morning. She has no complaints of chest discomfort, nausea, or vomiting. She indicates she is breathing comfortably. PHYSICAL EXAMINATION: VITAL SIGNS: Afebrile. Pulse 66, blood pressure 142/67, respirations 19, saturation 100% on 3 L nasal cannula this morning. GENERAL: The patient is awake and alert, in no apparent distress. LUNGS: Decent air entry. Dependent crackles are not present. There is no prolonged expiratory phase currently. HEART: Normal rate, regular. ABDOMEN: Soft, nontender, nondistended. Bowel sounds are positive. MUSCULOSKELETAL: No cyanosis or clubbing. No pitting in the bilateral lower extremities. NEUROLOGIC: Grossly nonfocal. LABORATORY DATA: WBC 11.9, hemoglobin 8.3, platelets 144,000. Neutrophil count is 82%. Creatinine 1.43 and stable. Basic metabolic profile is otherwise unremarkable. AST and ALT are both downtrending. Alkaline phosphatase remains unremarkable. Liver function studies are otherwise unremarkable. Her bilirubin is 0.4. Urinalysis is unremarkable. Blood cultures x2 and urine culture negative. IMAGING DATA: Echocardiogram demonstrates 60% to 65% ejection fraction with 2/3 diastolic dysfunction. Left atrium is mildly dilated. ASSESSMENT: 1. Czwft-fn-yyiaaxx hypoxic and hypercapnic respiratory failure, resolved. 2. Overdose on opiates, resolved. 3. Qxkav-gi-snyfasp diastolic heart failure. 4. Fnn-XR-twahdnjev myocardial infarction secondary to likely demand. 5. Shock liver, improving. 6. Chronic kidney disease. 7. Type-2 diabetes mellitus. 8. Obstructive sleep apnea, strongly suspected. DISCUSSION AND PLAN: The patient is doing fine from respiratory standpoint. While she is sleeping, she will require BiPAP at fairly good rate. At this point, she appears to be clinically dry. As such, diuretics will be interrupted. She will remain in the ICU until her strength and mentation improve a touch. Job ID: [id number]
--- NOTE | 2019-07-11 12:05 | PDOC.HOSPP ---
- Subjective Encounter Date: 07/11/19 Encounter Time: 10:03 Subjective: 58 y/o obese female with DM, Cirrhosis, HTN and others admitted on transfer from [facility] with mental status changes after opiate overdose. Responsiveness reportedly improved after narcan but patient remained confused and hallucinating and was found to have acute hypercarbic respiratory failure which did not improve with BIPAP hence was intubated. Patient found to have abnormal ST changes of EKG associated with elevated troponin as well as wide complex tachycardia hence was started on antithrombotic therapy and amiodarone. Extubated on 07/09/2019 and now off BIPAP. No new problem. no BM since admission. - Objective Vital Signs & Weight: Vital Signs (12 hours) Temp Pulse Pulse Pulse BP BP BP 07/11/19 10:31 07/11/19 09:17 63 187/78 H 07/11/19 09:14 75 85 163/73 H 217/103 H 07/11/19 08:00 07/11/19 07:00 98.2 F 07/11/19 05:38 63 187/78 H 07/11/19 04:00 98.1 F Pulse Ox Pulse Ox Pulse Ox 07/11/19 10:31 99 07/11/19 09:17 07/11/19 09:14 98 100 07/11/19 08:00 100 07/11/19 07:00 07/11/19 05:38 07/11/19 04:00 Weight Admit Weight 264 lb 5.348 oz Weight 264 lb 15.93 oz Most Recent Monitor Data Heart Rate from ECG 80 NIBP 183/83 NIBP BP-Mean 116 Respiration from ECG 22 SpO2 100 I&O: 07/10/19 07/11/19 07/12/19 06:59 06:59 06:59 Intake Total 733 1048 Output Total 1135 1400 550 Balance -402 -352 -550 Result Diagrams: 07/10/19 05:15 07/11/19 04:00 Additional Labs: Accuchecks 07/11/19 07/10/19 07/10/19 05:55 20:25 17:24 POC Glucose 91 125 H 156 H Hospitalist ROS - Medication Medications: Active Medications Generic Name Dose Route Start Last Admin Trade Name Freq PRN Reason Stop Dose Admin Aspirin 81 mg 07/10/19 09:00 07/11/19 09:17 Ecotrin PO 81 mg DAILY GAETANO Administration Famotidine 20 mg 07/10/19 09:00 07/11/19 09:17 Pepcid PO 20 mg DAILY GAETANO Administration Gabapentin 300 mg 07/09/19 21:00 07/10/19 20:27 Neurontin PO Not Given HS GAETANO Hydralazine HCl 10 mg 07/11/19 05:36 07/11/19 09:17 Apresoline SLOW IVP 10 mg Q4H PRN Administration SBP>170 Amiodarone HCl 450 mg/ 259 mls @ 0 mls/hr 07/09/19 01:00 07/11/19 05:51 Miscellaneous Medication 1 IVPB 259 mls each/ Dextrose/Water INF GAETANO Administration Protocol As Directed Insulin Glargine 15 units/ 0.15 mls @ 0 mls/hr 07/09/19 21:00 07/10/19 20:28 Miscellaneous Medication SC Not Given HS GAETANO Insulin Glargine 15 units/ 0.15 mls @ 0 mls/hr 07/10/19 09:00 07/11/19 09:32 Miscellaneous Medication SC 0.15 mls QAM GAETANO Administration Sodium Chloride 1,000 mls @ 40 mls/hr 07/10/19 14:15 07/10/19 17:51 1/2 Normal Saline IV 1,000 mls .Q24H GAETANO Administration Insulin Human Lispro 7 units 07/09/19 11:30 07/11/19 08:09 Humalog SC Not Given ACHS GAETANO - Exam General Appearance: awake alert General - other findings: morbidly obese Eye: anicteric sclera ENT: normocephalic atraumatic Neck: supple, symmetric Heart: RRR Respiratory: no wheezes, no rales, no ronchi, normal chest expansion Gastrointestinal: soft, non-tender, non-distended, normal bowel sounds Gastrointestinal - other findings: morbidly obese Extremities: no edema Extremities - other findings: Bilateral leg fullness with no edema Neurological: cranial nerve grossly intact, no focal deficits Psychiatric: A&O x 3 Hosp A/P (1) Acute respiratory failure with hypercapnia Code(s): J96.02 - ACUTE RESPIRATORY FAILURE WITH HYPERCAPNIA Status: Acute (2) Acute non-ST elevation myocardial infarction (NSTEMI) Code(s): I21.4 - NON-ST ELEVATION (NSTEMI) MYOCARDIAL INFARCTION Status: Acute (3) Ventricular tachyarrhythmia Code(s): I47.2 - VENTRICULAR TACHYCARDIA Status: Acute (4) Abnormal LFTs (liver function tests) Code(s): R94.5 - ABNORMAL RESULTS OF LIVER FUNCTION STUDIES Status: Acute (5) Opiate overdose Code(s): T40.601A - POISONING BY UNSP NARCOTICS, ACCIDENTAL, INIT Status: Acute (6) Pulmonary infiltrates Code(s): R91.8 - OTHER NONSPECIFIC ABNORMAL FINDING OF LUNG FIELD Status: Acute (7) Toxic metabolic encephalopathy Code(s): G92 - TOXIC ENCEPHALOPATHY Status: Acute (8) Hypokalemia Code(s): E87.6 - HYPOKALEMIA Status: Acute (9) HTN (hypertension) Code(s): I10 - ESSENTIAL (PRIMARY) HYPERTENSION Status: Acute (10) DM II (diabetes mellitus, type II), controlled Code(s): E11.9 - TYPE 2 DIABETES MELLITUS WITHOUT COMPLICATIONS Status: Chronic Qualifiers: Diabetes mellitus group home insulin use: with intermediate project manager use Diabetes mellitus complication status: with unspecified complications Qualified Code(s) : E11.8 - Type 2 diabetes mellitus with unspecified complications; Z79.4 - senior care (current) use of insulin (11) Hepatitis C Code(s): B19.20 - UNSPECIFIED VIRAL HEPATITIS C WITHOUT HEPATIC COMA Status: Chronic Qualifiers: Viral hepatitis chronicity: chronic Hepatic coma status: without hepatic coma Qualified Code(s): B18.2 - Chronic viral hepatitis C (12) Hypothyroidism Code(s): E03.9 - HYPOTHYROIDISM, UNSPECIFIED Status: Chronic Qualifiers: Hypothyroidism type: unspecified Qualified Code(s): E03.9 - Hypothyroidism , unspecified (13) Morbid obesity Code(s): E66.01 - MORBID (SEVERE) OBESITY DUE TO EXCESS CALORIES Status: Chronic (14) SANDI (obstructive sleep apnea) Code(s): G47.33 - OBSTRUCTIVE SLEEP APNEA (ADULT) (PEDIATRIC) Status: Chronic (15) ANALY (acute kidney injury) Code(s): N17.9 - ACUTE KIDNEY FAILURE, UNSPECIFIED Status: Acute (16) Acute on chronic diastolic (congestive) heart failure Code(s): I50.33 - ACUTE ON CHRONIC DIASTOLIC (CONGESTIVE) HEART FAILURE Status : Acute (17) Hepatopathy Code(s): K76.9 - LIVER DISEASE, UNSPECIFIED Status: Acute - Plan Start amlodipine for BP control. Continue as needed iv hydralazine Diuretic as per cardiology [facility] today Continue amiodarone as per cardiology Monitor renal function and liver function. Restart levo thyroixine.
[2019-07-11] MEDS ORDERED: Amlodipine 10 MG TAB PO SCH (12:15)
[2019-07-11] MEDS ORDERED: Polyethylene Glycol 3350 17 GM Packet PO SCH (12:45)
[2019-07-11] MEDS: Sodium Chloride 0.45% 1,000 ML IV SCH (13:31)
[2019-07-11] MEDS ORDERED: Potassium Chloride 20 MEQ TAB PO SCH (16:30)
--- NOTE | 2019-07-11 17:03 | PRG ---
DATE OF SERVICE: 07/11/2019 SERVICE: Pulmonary Medicine. INTERVAL HISTORY: The patient was witnessed to have horrendous sleep apnea at bedside. She denies any current fevers, chills, nausea, or vomiting, and feels very refreshed this morning. I find her awake, alert, and cooperative. Whenever she falls asleep, however, CPAP at 23/13 was not enough to provide her with adequate ventilation. We actually give her those settings, and placed a nasal trumpet for her to not become obstructed. She currently denies any fevers, chills, nausea, vomiting, or diarrhea. Otherwise, she has returned to her usual state of health. She is going down for cardiac catheterization, likely tomorrow. PHYSICAL EXAMINATION: VITAL SIGNS: Afebrile, pulse 69, blood pressure 177/83, respirations 22, and saturation 99% currently on 3 L nasal cannula. GENERAL: The patient is awake and alert, in no apparent distress. LUNGS: Decreased air entry, but there is certainly no prolonged expiratory phase. I cannot appreciate any adventitious sounds. HEART: Normal rate and regular. ABDOMEN: Soft, nontender, and nondistended. Bowel sounds are positive. MUSCULOSKELETAL: No cyanosis or clubbing. No pitting in the bilateral lower extremities. NEUROLOGIC: Grossly nonfocal. LABORATORY DATA: Creatinine 1.11 and gently downtrending, BUN 22. Basic metabolic profile is otherwise unremarkable. Potassium 3.6. AST and ALT are both downtrending. Liver function studies are otherwise unremarkable. Lymphatic function of the liver looks excellent. Urinalysis is unremarkable. Blood cultures x2 and urine culture are negative. ASSESSMENT: 1. Acute on chronic hypoxic and hypercapnic respiratory failure, resolved. 2. Overdose on opiates, resolved. 3. Edt-YQ-nuokeysll myocardial infarction secondary to demand. 4. Shock liver, resolving. 5. Chronic kidney disease, stage 2. 6. Type 2 diabetes mellitus. 7. Obstructive sleep apnea, strongly suspected. DISCUSSION AND PLAN: Because of the how severe she looks whenever she is sleeping, we will keep her in the ICU for one additional night and continue noninvasive ventilation. Potassium will be replaced today. Hopefully, the patient will be able to undergo cardiac catheterization within 24 hours. If she looks good tomorrow, she can be considered for transition to the floor. I will work on mobilization efforts today. Job ID: [id number]
[2019-07-11] MEDS: Gabapentin 300 MG CAP PO SCH (20:18)
[2019-07-11] MEDS: Enoxaparin Sodium 40 MG/0.4 ML SYRINGE SC SCH (20:18)
[2019-07-11] MEDS: Rosuvastatin 20 MG TAB PO SCH (20:18)
[2019-07-12] MEDS: Levothyroxine Sodium 75 MCG TAB PO SCH (06:20)
[2019-07-12] MEDS: HumaLOG 300 UNITS/3 ML VIAL SC SCH ×3 (08:51→17:14)
[2019-07-12] MEDS: Furosemide 40 MG/4 ML VIAL SLOW IVP SCH (08:53)
[2019-07-12] MEDS: Insulin Glargine 15 UNITS in Pre-Filled Syringe 1 EACH SC SCH ×2 (08:56→20:32)
[2019-07-12 09:23] LABS: #Eosinphils 0.1 thou/uL (0.0-0.7); #Lymphocytes 1.1 thou/uL (1.20-3.40); #Monocytes 0.9 thou/uL (0.11-0.59); #Neutrophils 8.2 thou/uL (1.40-6.50); %Basophils 0.1 % (0.0-1.0); %Eosinophils 0.7 % (0.0-10.0); %Lymphocytes 10.3 % (21.0-51.0); %Monocytes 8.3 % (0.0-10.0); %Neutrophils 80.6 % (42.0-75.0); Hemoglobin 8.3 g/dL (12.0-16.0); Mean Corpuscular HGB CONC 30.6 g/dL (32.0-36.0); Mean Corpuscular Hemoglobin 27.1 pg (27.0-31.0); Mean Corpuscular Volume 88.6 fL (78.0-98.0); Mean Platelet Volume 7.4 fL (7.4-10.4); Platelet Count 149 thou/uL (130-400); RBC Distribution Width 17.7 % (11.5-14.5); Red Blood Cell (RBC) Count 3.04 mill/uL (4.20-5.40); White Blood Cell (WBC) Count 10.2 thou/uL (4.8-10.8)
[2019-07-12 09:42] LABS: ALT (SGPT) 523 U/L (8-55); AST (SGOT) 204 U/L (5-34); Albumin 3.1 g/dL (3.5-5.0); Alkaline Phosphatase 102 U/L (40-110); Anion Gap 9 mmol/L (10-20); BUN (Urea Nitrogen) 17 mg/dL (9.8-20.1); Bilirubin, Total 0.6 mg/dL (0.2-1.2); Calc. Creatinine Clearance 133 mL/min (70-130); Calcium 9.2 mg/dL (7.8-10.44); Carbon Dioxide 37 mmol/L (22-29); Chloride 100 mmol/L (98-107); Estimated GFR-MDRD 67; Globulin 2.6 g/dL (2.4-3.5); Glucose 118 mg/dL (70-105); Potassium 3.2 mmol/L (3.5-5.1); Protein, Total 5.7 g/dL (6.0-8.3); Sodium 143 mmol/L (136-145)
[2019-07-12] MEDS ORDERED: Lidocaine 1% (PF) 30 ML VIAL ONE (11:50)
[2019-07-12] MEDS ORDERED: Heparin (Artline) 1,000 ML ONE (11:50)
--- NOTE | 2019-07-12 12:05 | PDOC.HOSPP ---
- Subjective Encounter Date: 07/12/19 Encounter Time: 12:04 Subjective: 58 y/o obese female with DM, Cirrhosis, HTN and others admitted on transfer from [facility] with mental status changes after opiate overdose. Responsiveness reportedly improved after narcan but patient remained confused and hallucinating and was found to have acute hypercarbic respiratory failure which did not improve with BIPAP hence was intubated. Patient found to have abnormal ST changes of EKG associated with elevated troponin as well as wide complex tachycardia hence was started on antithrombotic therapy and amiodarone. Extubated on 07/09/2019 and now off BIPAP. No new problem.For [facility] today. - Objective Vital Signs & Weight: Vital Signs (12 hours) Temp Pulse Pulse Ox 07/12/19 08:00 97.7 F 100 07/12/19 07:38 99 07/12/19 04:00 99.2 F 07/12/19 01:03 70 98 Weight Admit Weight 264 lb 5.348 oz Weight 264 lb 1.82 oz Most Recent Monitor Data Heart Rate from ECG 68 NIBP 141/82 NIBP BP-Mean 101 Respiration from ECG 23 SpO2 98 I&O: 07/11/19 07/12/19 07/13/19 06:59 06:59 06:59 Intake Total 1048 1557 Output Total 6613 8571 585 [facility] -305 -7231 -351 Result Diagrams: 07/12/19 09:03 07/12/19 09:03 Additional Labs: Accuchecks 07/12/19 07/12/19 07/11/19 11:38 06:22 20:16 POC Glucose 107 110 153 H 07/11/19 07/11/19 17:19 11:39 POC Glucose 166 H 93 Hospitalist ROS - Medication Medications: Active Medications Generic Name Dose Route Start Last Admin Trade Name Freq PRN Reason Stop Dose Admin Aspirin 81 mg 07/10/19 09:00 07/11/19 09:17 Ecotrin PO 81 mg DAILY GAETANO Administration Enoxaparin Sodium 40 mg 07/11/19 21:00 07/11/19 20:18 Lovenox SC 40 mg 2100 GAETANO Administration Famotidine 20 mg 07/10/19 09:00 07/11/19 09:17 Pepcid PO 20 mg DAILY GAETANO Administration Furosemide 40 mg 07/12/19 09:00 07/12/19 08:53 Lasix SLOW IVP 40 mg 0900 GAETANO Administration Gabapentin 300 mg 07/09/19 21:00 07/11/19 20:18 Neurontin PO 300 mg HS GAETANO Administration Hydralazine HCl 10 mg 07/11/19 05:36 07/11/19 09:17 Apresoline SLOW IVP 10 mg Q4H PRN Administration SBP>170 Amiodarone HCl 450 mg/ 259 mls @ 0 mls/hr 07/09/19 01:00 07/11/19 20:08 Miscellaneous Medication 1 IVPB 259 mls each/ Dextrose/Water INF GAETANO Administration Protocol As Directed Insulin Glargine 15 units/ 0.15 mls @ 0 mls/hr 07/09/19 21:00 07/11/19 20:17 Miscellaneous Medication SC 0.15 mls HS GAETANO Administration Insulin Glargine 15 units/ 0.15 mls @ 0 mls/hr 07/10/19 09:00 07/12/19 08:56 Miscellaneous Medication SC 0.15 mls QAM GAETANO Administration Insulin Human Lispro 5 units 07/11/19 17:00 07/12/19 08:51 Humalog SC Not Given AC GAETANO Levothyroxine Sodium 75 mcg 07/12/19 06:00 07/12/19 06:20 Synthroid PO 75 mcg 0600 GAETANO Administration Rosuvastatin Calcium 40 mg 07/11/19 21:00 07/11/19 20:18 Crestor PO 40 mg HS GAETANO Administration - Exam General Appearance: awake alert General - other findings: morbidly obese Eye: anicteric sclera ENT: normocephalic atraumatic Neck: symmetric, no JVD Heart: RRR Respiratory: no wheezes, no ronchi, normal chest expansion Gastrointestinal: soft, non-tender, non-distended, normal bowel sounds Gastrointestinal - other findings: morbidly obese Extremities: no cyanosis Extremities - other findings: bilateral fullness with no pittine edema noted Neurological: cranial nerve grossly intact, no focal deficits Psychiatric: normal affect, A&O x 3 Hosp A/P (1) Acute respiratory failure with hypercapnia Code(s): J96.02 - ACUTE RESPIRATORY FAILURE WITH HYPERCAPNIA Status: Acute (2) Acute non-ST elevation myocardial infarction (NSTEMI) Code(s): I21.4 - NON-ST ELEVATION (NSTEMI) MYOCARDIAL INFARCTION Status: Acute (3) Ventricular tachyarrhythmia Code(s): I47.2 - VENTRICULAR TACHYCARDIA Status: Acute (4) Abnormal LFTs (liver function tests) Code(s): R94.5 - ABNORMAL RESULTS OF LIVER FUNCTION STUDIES Status: Acute (5) Opiate overdose Code(s): T40.601A - POISONING BY UNSP NARCOTICS, ACCIDENTAL, INIT Status: Acute (6) Pulmonary infiltrates Code(s): R91.8 - OTHER NONSPECIFIC ABNORMAL FINDING OF LUNG FIELD Status: Acute (7) Toxic metabolic encephalopathy Code(s): G92 - TOXIC ENCEPHALOPATHY Status: Acute (8) Hypokalemia Code(s): E87.6 - HYPOKALEMIA Status: Acute (9) HTN (hypertension) Code(s): I10 - ESSENTIAL (PRIMARY) HYPERTENSION Status: Acute (10) DM II (diabetes mellitus, type II), controlled Code(s): E11.9 - TYPE 2 DIABETES MELLITUS WITHOUT COMPLICATIONS Status: Chronic Qualifiers: Diabetes mellitus long chain dyeing machine operator insulin use: with mcfp use Diabetes mellitus complication status: with unspecified complications Qualified Code(s) : E11.8 - Type 2 diabetes mellitus with unspecified complications; Z79.4 - buttermilk drier operator (current) use of insulin (11) Hepatitis C Code(s): B19.20 - UNSPECIFIED VIRAL HEPATITIS C WITHOUT HEPATIC COMA Status: Chronic Qualifiers: Viral hepatitis chronicity: chronic Hepatic coma status: without hepatic coma Qualified Code(s): B18.2 - Chronic viral hepatitis C (12) Hypothyroidism Code(s): E03.9 - HYPOTHYROIDISM, UNSPECIFIED Status: Chronic Qualifiers: Hypothyroidism type: unspecified Qualified Code(s): E03.9 - Hypothyroidism , unspecified (13) Morbid obesity Code(s): E66.01 - MORBID (SEVERE) OBESITY DUE TO EXCESS CALORIES Status: Chronic (14) SANDI (obstructive sleep apnea) Code(s): G47.33 - OBSTRUCTIVE SLEEP APNEA (ADULT) (PEDIATRIC) Status: Chronic (15) ANALY (acute kidney injury) Code(s): N17.9 - ACUTE KIDNEY FAILURE, UNSPECIFIED Status: Acute (16) Acute on chronic diastolic (congestive) heart failure Code(s): I50.33 - ACUTE ON CHRONIC DIASTOLIC (CONGESTIVE) HEART FAILURE Status : Acute (17) Hepatopathy Code(s): K76.9 - LIVER DISEASE, UNSPECIFIED Status: Acute - Plan Replete serum potassium. Get magnesium level in the am. Continue amlodipine for BP control. Diuretic as per cardiology. Amiodarone on going [facility] today. Did not take place yesterday Monitor renal function and liver function.
[2019-07-12] MEDS ORDERED: Nitroglycerin 100MG/250ML BOT 250 ML ONE (12:14)
[2019-07-12] MEDS ORDERED: Heparin 10,000 UNITS/1 ML VIAL ONE (12:14)
[2019-07-12] MEDS ORDERED: Verapamil 5 MG/2 ML VIAL ONE (12:14)
[2019-07-12] MEDS ORDERED: Potassium Chloride 20 MEQ TAB PO SCH (12:15)
[2019-07-12] MEDS ORDERED: Midazolam HCl 2 mg/2 ml Vial ONE (12:20)
[2019-07-12] MEDS ORDERED: Fentanyl 100 MCG/2 ML VIAL ONE (12:20)
[2019-07-12] MEDS ORDERED: Sodium Chloride 0.9% 200 ML IV PRN (12:46)
[2019-07-12] MEDS ORDERED: Acetaminophen/Codeine 30-300mg Tablet PO PRN (12:46)
[2019-07-12] MEDS ORDERED: Sodium Chloride 0.9% 500 ML IV SCH (13:00)
[2019-07-12] MEDS ORDERED: Iopamidol 370 76% 100 ML VIAL ONE (13:11)
[2019-07-12] MEDS: Aspirin 81 mg Enteric Coated Tablet PO SCH (13:24)
[2019-07-12] MEDS: Amlodipine 10 MG TAB PO SCH (13:24)
[2019-07-12] MEDS: Famotidine 20 MG TAB PO SCH (13:24)
[2019-07-12] MEDS: Polyethylene Glycol 3350 17 GM Packet PO SCH (13:24)
[2019-07-12] MEDS: hydrALAZINE 20 MG/ML VIAL SLOW IVP PRN (14:16)
[2019-07-12] MEDS: Amiodarone 450 MG, Admixture Fee 1 EACH in Dextrose 5% in Water 250 ML IVPB SCH (14:17)
[2019-07-12] MEDS: Gabapentin 300 MG CAP PO SCH (20:31)
[2019-07-12] MEDS: Rosuvastatin 20 MG TAB PO SCH (20:31)
[2019-07-12] MEDS: Enoxaparin Sodium 40 MG/0.4 ML SYRINGE SC SCH (20:32)
[2019-07-12] MEDS: Potassium Chloride 20 MEQ TAB PO SCH (20:32)
[2019-07-13] MEDS: Amiodarone 450 MG, Admixture Fee 1 EACH in Dextrose 5% in Water 250 ML IVPB SCH (04:15)
[2019-07-13 04:55] LABS: Anion Gap 10 mmol/L (10-20); BUN (Urea Nitrogen) 16 mg/dL (9.8-20.1)
[2019-07-13] MEDS: Levothyroxine Sodium 75 MCG TAB PO SCH (05:51)
[2019-07-13 06:26] LABS: Carbon Dioxide 34 mmol/L (22-29); Chloride 103 mmol/L (98-107); Sodium 143 mmol/L (136-145)
[2019-07-13 06:28] LABS: Calc. Creatinine Clearance 136 mL/min (70-130); Estimated GFR-MDRD 69; Glucose 95 mg/dL (70-105)
[2019-07-13 06:29] LABS: Bilirubin, Total 0.7 mg/dL (0.2-1.2); Protein, Total 5.5 g/dL (6.0-8.3)
[2019-07-13 06:30] LABS: Albumin 2.9 g/dL (3.5-5.0)
[2019-07-13 06:32] LABS: Globulin 2.6 g/dL (2.4-3.5)
[2019-07-13 06:33] LABS: ALT (SGPT) 360 U/L (8-55); AST (SGOT) 109 U/L (5-34); Alkaline Phosphatase 103 U/L (40-110)
[2019-07-13 06:34] LABS: Magnesium 1.8 mg/dL (1.6-2.6)
[2019-07-13] MEDS: HumaLOG 300 UNITS/3 ML VIAL SC SCH ×3 (07:57→16:29)
[2019-07-13] MEDS: Polyethylene Glycol 3350 17 GM Packet PO SCH (08:06)
[2019-07-13] MEDS: Amlodipine 10 MG TAB PO SCH (08:06)
[2019-07-13] MEDS: Furosemide 40 MG/4 ML VIAL SLOW IVP SCH (08:07)
[2019-07-13] MEDS: Aspirin 81 mg Enteric Coated Tablet PO SCH (08:07)
[2019-07-13] MEDS: Famotidine 20 MG TAB PO SCH ×2 (08:07→20:50)
[2019-07-13] MEDS: Potassium Chloride 20 MEQ TAB PO SCH ×2 (08:13→09:35)
[2019-07-13] MEDS: Insulin Glargine 15 UNITS in Pre-Filled Syringe 1 EACH SC SCH ×2 (08:43→20:51)
--- NOTE | 2019-07-13 11:30 | PRG ---
DATE OF SERVICE: 07/12/2019 SERVICE: Pulmonary Medicine. INTERVAL HISTORY: The patient is doing outstanding from a respiratory standpoint. Breathing comfortably. She has been weaned down to 2 L nasal cannula. Otherwise, there has been no change to her condition. She had a cardiac catheterization yesterday, which demonstrated no significant coronary disease. PHYSICAL EXAMINATION: VITAL SIGNS: Afebrile, pulse 84, blood pressure 144/77, respirations 22, saturation 92% on 3 L nasal cannula. GENERAL: The patient is awake and alert, in no apparent distress. LUNGS: Decreased air entry with no prolonged expiratory phase. Crackles are no longer present. There are no rhonchi or wheezing appreciated. HEART: Normal rate, regular. ABDOMEN: Soft, nontender, and nondistended. Bowel sounds are positive. MUSCULOSKELETAL: No cyanosis or clubbing. No pitting in the bilateral lower extremities. NEUROLOGIC: Grossly nonfocal. LABORATORY DATA: WBC 10.2, hemoglobin 8.3, and platelets 149,000. Potassium 3.2. Basic metabolic profile is otherwise unremarkable. AST and ALT are downtrending. Total bilirubin remains low. Blood cultures x2 and urine culture negative to date. ASSESSMENT: 1. Acute on chronic hypoxic and hypercapnic respiratory failure, resolved. 2. Overdose on opiates, resolved. 3. Jsh-MG-klsdbriep myocardial infarction secondary to demand. 4. Chronic diastolic heart failure, returned to euvolemia. 5. Shock liver, resolving. 6. Chronic kidney disease 2. 7. Type 2 diabetes mellitus. 8. Obstructive sleep apnea, strongly suspected. DISCUSSION AND PLAN: This patient is stable for transition out of the ICU to the telemetry unit. When she leaves the ICU, she will have no further requirements for inpatient Pulmonary Critical Care opinion and I will sign off. I have her return to see me in clinic in the outpatient setting, and we will refer her for a polysomnogram because she certainly has sleep apnea. If she remains in the ICU , I will continue to follow. Job ID: [id number] [facility]
--- NOTE | 2019-07-13 12:50 | PRG ---
DATE OF SERVICE: 07/13/2019 SERVICE: Pulmonary Medicine. INTERVAL HISTORY: The patient is breathing very well. No complaints of chest discomfort, nausea, or vomiting. Otherwise, there has been no change to her condition. She is getting her hair done this morning. She is sitting comfortably in a bedside chair. PHYSICAL EXAMINATION: VITAL SIGNS: Afebrile, pulse 88, blood pressure 122/68, respirations 16, saturation 100%, currently on 2 L nasal cannula. GENERAL: The patient is awake and alert, in no apparent distress. LUNGS: Wonderful air entry with no prolonged expiratory phase or wheezing present. HEART: Normal rate and regular. ABDOMEN: Soft, nontender, nondistended. Bowel sounds are positive. MUSCULOSKELETAL: No cyanosis or clubbing. There is no pitting in the bilateral lower extremities. NEUROLOGIC: Grossly nonfocal. LABORATORY DATA: Basic metabolic profile is unremarkable. AST and ALT are downtrending. Total bilirubin 0.7. Blood cultures x2 and urine culture remain negative. ASSESSMENT: 1. Acute on chronic hypoxic and hypercapnic respiratory failure, likely back to baseline. 2. Overdose on opiates, resolved. 3. Khe-NG-ltycvycbx myocardial infarction secondary to demand. 4. Shock liver, improving. 5. Chronic kidney disease 2. 6. Type 2 diabetes mellitus. 7. Obstructive sleep apnea, witnessed at bedside. DISCUSSION AND PLAN: The patient is stable for transition out of the ICU to the telemetry unit. When she leaves the ICU, she will have no further requirements for inpatient Pulmonary or Critical Care opinion, and I will sign off. I will have her visit with me in the outpatient setting, so that we can set up an in-lab polysomnogram as she will most likely fail CPAP therapy. Job ID: [id number]
--- NOTE | 2019-07-13 13:54 | PDOC.HOSPP ---
- Subjective Encounter Date: 07/13/19 Encounter Time: 13:52 Subjective: 58 y/o obese female with DM, Cirrhosis, HTN and others admitted on transfer from [facility] with mental status changes after opiate overdose. Responsiveness reportedly improved after narcan but patient remained confused and hallucinating and was found to have acute hypercarbic respiratory failure which did not improve with BIPAP hence was intubated. Patient found to have abnormal ST changes of EKG associated with elevated troponin as well as wide complex tachycardia hence was started on antithrombotic therapy and amiodarone. Extubated on 07/09/2019. Had C om 07/12/2019 with no obstructive disease. - Objective Vital Signs & Weight: Vital Signs (12 hours) Temp Pulse Pulse Pulse Resp BP BP 07/13/19 12:00 97.9 F 07/13/19 10:41 07/13/19 09:05 89 84 158/91 H 07/13/19 08:06 80 130/67 07/13/19 08:00 97.6 F 07/13/19 04:53 80 18 155/81 H 07/13/19 04:00 98 F BP Pulse Ox Pulse Ox Pulse Ox 07/13/19 12:00 07/13/19 10:41 99 07/13/19 09:05 128/73 99 99 07/13/19 08:06 07/13/19 08:00 96 07/13/19 04:53 07/13/19 04:00 Weight Admit Weight 264 lb 5.348 oz Weight 263 lb 3.711 oz Most Recent Monitor Data Heart Rate from ECG 77 NIBP 96/60 NIBP BP-Mean 72 Respiration from ECG 20 SpO2 100 I&O: 07/12/19 07/13/19 07/14/19 06:59 06:59 06:59 Intake Total 1557 1355 1144 Output Total 3935 2105 290 Balance -1585 -417 294 Result Diagrams: 07/12/19 09:03 07/13/19 03:55 Additional Labs: Accuchecks 07/13/19 07/12/19 07/12/19 11:58 20:40 17:05 POC Glucose 212 H 116 H 120 H Hospitalist ROS - Medication Medications: Active Medications Generic Name Dose Route Start Last Admin Trade Name Freq PRN Reason Stop Dose Admin Acetaminophen/Codeine Phosphate 1 tab 07/12/19 12:46 07/13/19 00:08 Tylenol #3 PO 1 tab Q4H PRN Administration Mild Pain (1-3) Aspirin 81 mg 07/10/19 09:00 07/13/19 08:07 Ecotrin PO 81 mg DAILY GAETANO Administration Gabapentin 300 mg 07/09/19 21:00 07/12/19 20:31 Neurontin PO 300 mg HS GAETANO Administration Hydralazine HCl 10 mg 07/11/19 05:36 07/12/19 14:16 Apresoline SLOW IVP 10 mg Q4H PRN Administration SBP>170 Insulin Glargine 15 units/ 0.15 mls @ 0 mls/hr 07/09/19 21:00 07/12/19 20:32 Miscellaneous Medication SC 0.15 mls HS GAETANO Administration Insulin Glargine 15 units/ 0.15 mls @ 0 mls/hr 07/10/19 09:00 07/13/19 08:43 Miscellaneous Medication SC 0.15 mls QAM GAETANO Administration Insulin Human Lispro 5 units 07/11/19 17:00 07/13/19 11:56 Humalog SC 5 unit AC GAETANO Administration Levothyroxine Sodium 75 mcg 07/12/19 06:00 07/13/19 05:51 Synthroid PO 75 mcg 0600 GAETANO Administration Metoprolol Succinate 25 mg 07/13/19 09:00 07/13/19 08:54 Toprol Xl PO 25 mg DAILY GAETANO Administration Polyethylene Glycol 17 gm 07/12/19 09:00 07/13/19 08:06 Miralax PO 17 gm DAILY GAETANO Administration Potassium Chloride 40 meq 07/13/19 09:00 07/13/19 09:35 K-Dur PO Not Given DAILY GAETANO Rosuvastatin Calcium 40 mg 07/11/19 21:00 07/12/19 20:31 Crestor PO 40 mg HS GAETANO Administration - Exam General Appearance: awake alert General - other findings: obese Eye: anicteric sclera ENT: normocephalic atraumatic Neck: symmetric Heart: RRR Respiratory: no wheezes, no ronchi, normal chest expansion Respiratory - other findings: fair air entry bilaterally Gastrointestinal: soft, non-tender, non-distended, normal bowel sounds Gastrointestinal - other findings: morbidly obese Extremities: no cyanosis Extremities - other findings: bilateral leg fullness noticed Neurological: cranial nerve grossly intact, no focal deficits Musculoskeletal: normal tone, generalized weakness Psychiatric: A&O x 3 Hosp A/P (1) Acute respiratory failure with hypercapnia Code(s): J96.02 - ACUTE RESPIRATORY FAILURE WITH HYPERCAPNIA Status: Acute (2) Acute non-ST elevation myocardial infarction (NSTEMI) Code(s): I21.4 - NON-ST ELEVATION (NSTEMI) MYOCARDIAL INFARCTION Status: Acute (3) Ventricular tachyarrhythmia Code(s): I47.2 - VENTRICULAR TACHYCARDIA Status: Acute (4) Abnormal LFTs (liver function tests) Code(s): R94.5 - ABNORMAL RESULTS OF LIVER FUNCTION STUDIES Status: Acute (5) Opiate overdose Code(s): T40.601A - POISONING BY UNSP NARCOTICS, ACCIDENTAL, INIT Status: Acute (6) Pulmonary infiltrates Code(s): R91.8 - OTHER NONSPECIFIC ABNORMAL FINDING OF LUNG FIELD Status: Acute (7) Toxic metabolic encephalopathy Code(s): G92 - TOXIC ENCEPHALOPATHY Status: Acute (8) Hypokalemia Code(s): E87.6 - HYPOKALEMIA Status: Acute (9) HTN (hypertension) Code(s): I10 - ESSENTIAL (PRIMARY) HYPERTENSION Status: Acute (10) DM II (diabetes mellitus, type II), controlled Code(s): E11.9 - TYPE 2 DIABETES MELLITUS WITHOUT COMPLICATIONS Status: Chronic Qualifiers: Diabetes mellitus specimen transporter insulin use: with skilled nursing use Diabetes mellitus complication status: with unspecified complications Qualified Code(s) : E11.8 - Type 2 diabetes mellitus with unspecified complications; Z79.4 - regulatory affairs consultant (current) use of insulin (11) Hepatitis C Code(s): B19.20 - UNSPECIFIED VIRAL HEPATITIS C WITHOUT HEPATIC COMA Status: Chronic Qualifiers: Viral hepatitis chronicity: chronic Hepatic coma status: without hepatic coma Qualified Code(s): B18.2 - Chronic viral hepatitis C (12) Hypothyroidism Code(s): E03.9 - HYPOTHYROIDISM, UNSPECIFIED Status: Chronic Qualifiers: Hypothyroidism type: unspecified Qualified Code(s): E03.9 - Hypothyroidism , unspecified (13) Morbid obesity Code(s): E66.01 - MORBID (SEVERE) OBESITY DUE TO EXCESS CALORIES Status: Chronic (14) SANDI (obstructive sleep apnea) Code(s): G47.33 - OBSTRUCTIVE SLEEP APNEA (ADULT) (PEDIATRIC) Status: Chronic (15) ANALY (acute kidney injury) Code(s): N17.9 - ACUTE KIDNEY FAILURE, UNSPECIFIED Status: Acute (16) Acute on chronic diastolic (congestive) heart failure Code(s): I50.33 - ACUTE ON CHRONIC DIASTOLIC (CONGESTIVE) HEART FAILURE Status : Acute (17) Hepatopathy Code(s): K76.9 - LIVER DISEASE, UNSPECIFIED Status: Acute (18) Acute diastolic heart failure Code(s): I50.31 - ACUTE DIASTOLIC (CONGESTIVE) HEART FAILURE Status: Acute - Plan DC amlodipine given low BP with commencement of metoprolol. Diuretic as per cardiology Monitor renal function and liver function. monitor electrolytes nad replete as needed. PT/OT eval and treat. Rehab screen.
[2019-07-13] MEDS: Apixaban 5 MG TAB PO SCH (20:50)
[2019-07-13] MEDS: Gabapentin 300 MG CAP PO SCH (20:51)
[2019-07-13] MEDS: Rosuvastatin 20 MG TAB PO SCH (20:51)
[2019-07-14] MEDS: Levothyroxine Sodium 75 MCG TAB PO SCH (06:36)
[2019-07-14 06:43] LABS: ALT (SGPT) 274 U/L (8-55); AST (SGOT) 64 U/L (5-34); Alkaline Phosphatase 101 U/L (40-110); Anion Gap 10 mmol/L (10-20); BUN (Urea Nitrogen) 19 mg/dL (9.8-20.1); Bilirubin, Total 0.6 mg/dL (0.2-1.2); Calc. Creatinine Clearance 118 mL/min (70-130); Calcium 9.2 mg/dL (7.8-10.44); Carbon Dioxide 35 mmol/L (22-29); Chloride 99 mmol/L (98-107); Estimated GFR-MDRD 58; Globulin 2.7 g/dL (2.4-3.5); Glucose 133 mg/dL (70-105); Potassium 4.5 mmol/L (3.5-5.1); Protein, Total 5.7 g/dL (6.0-8.3); Sodium 139 mmol/L (136-145)
[2019-07-14 06:46] VITALS: BMI 51.1
[2019-07-14] MEDS: HumaLOG 300 UNITS/3 ML VIAL SC SCH ×3 (07:55→16:54)
[2019-07-14] MEDS: Polyethylene Glycol 3350 17 GM Packet PO SCH (08:00)
[2019-07-14] MEDS: Apixaban 5 MG TAB PO SCH ×2 (08:01→20:38)
[2019-07-14] MEDS: Insulin Glargine 15 UNITS in Pre-Filled Syringe 1 EACH SC SCH ×2 (08:01→20:39)
[2019-07-14] MEDS: Famotidine 20 MG TAB PO SCH ×2 (08:01→20:38)
[2019-07-14] MEDS: Aspirin 81 mg Enteric Coated Tablet PO SCH (08:01)
[2019-07-14] MEDS: Furosemide 40 MG TAB PO SCH (08:01)
[2019-07-14] MEDS: Potassium Chloride 20 MEQ TAB PO SCH (09:51)
[2019-07-14 10:49] VITALS: BP 158/79
--- NOTE | 2019-07-14 11:29 | PDOC.HOSPP ---
- Subjective Encounter Date: 07/14/19 Encounter Time: 11:28 Subjective: 58 y/o obese female with DM, Cirrhosis, HTN and others admitted on transfer from [facility] with mental status changes after opiate overdose. Responsiveness reportedly improved after narcan but patient remained confused and hallucinating and was found to have acute hypercarbic respiratory failure which did not improve with BIPAP hence was intubated. Patient was found to have abnormal ST changes of EKG associated with elevated troponin as well as wide complex tachycardia hence was started on antithrombotic therapy and amiodarone. Extubated on 07/09/2019. Had C om 07/12/2019 with no obstructive disease. Feeling better. No new problem - Objective Vital Signs & Weight: Vital Signs (12 hours) Temp Pulse Pulse BP BP Pulse Ox Pulse Ox 07/14/19 11:00 97.6 F 07/14/19 09:39 75 73 158/79 H 128/79 96 07/14/19 08:00 99 07/14/19 07:00 97.6 F 07/14/19 04:00 97.5 F L 07/14/19 00:00 97.8 F Pulse Ox 07/14/19 11:00 07/14/19 09:39 98 07/14/19 08:00 07/14/19 07:00 07/14/19 04:00 07/14/19 00:00 Weight Admit Weight 264 lb 5.348 oz Weight 270 lb 11.642 oz Most Recent Monitor Data Heart Rate from ECG 72 NIBP 131/65 NIBP BP-Mean 87 Respiration from ECG 17 SpO2 99 I&O: 07/13/19 07/14/19 07/15/19 06:59 06:59 06:59 Intake Total 1355 1834 390 Output Total 2105 1050 200 Balance -750 784 190 Result Diagrams: 07/12/19 09:03 07/14/19 04:04 Additional Labs: Accuchecks 07/14/19 07/14/19 07/13/19 11:13 06:41 20:52 POC Glucose 215 H 123 H 195 H 07/13/19 07/13/19 15:54 11:58 POC Glucose 187 H 212 H Hospitalist ROS - Medication Medications: Active Medications Generic Name Dose Route Start Last Admin Trade Name Freq PRN Reason Stop Dose Admin Acetaminophen/Codeine Phosphate 1 tab 07/12/19 12:46 11/13/19 00:08 Tylenol #3 PO 1 tab Q4H PRN Administration Mild Pain (1-3) Apixaban 5 mg 07/13/19 21:00 07/14/19 08:01 Eliquis PO 5 mg BID GAETANO Administration Aspirin 81 mg 07/10/19 09:00 07/14/19 08:01 Ecotrin PO 81 mg DAILY GAETANO Administration Famotidine 20 mg 07/13/19 21:00 07/14/19 08:01 Pepcid PO 20 mg BID GAETANO Administration Furosemide 40 mg 07/14/19 07:30 07/14/19 08:01 Lasix PO 40 mg DAILY-AC GAETANO Administration Gabapentin 300 mg 07/09/19 21:00 07/13/19 20:51 Neurontin PO 300 mg HS GAETANO Administration Hydralazine HCl 10 mg 07/11/19 05:36 07/12/19 14:16 Apresoline SLOW IVP 10 mg Q4H PRN Administration SBP>170 Insulin Glargine 15 units/ 0.15 mls @ 0 mls/hr 07/09/19 21:00 07/13/19 20:51 Miscellaneous Medication SC 0.15 mls HS GAETANO Administration Insulin Glargine 15 units/ 0.15 mls @ 0 mls/hr 07/10/19 09:00 07/14/19 08:01 Miscellaneous Medication SC 0.15 mls QAM GAETANO Administration Insulin Human Lispro 0 units 07/09/19 10:29 07/13/19 20:52 Humalog SC 2 unit .MODERATE SLIDING SC PRN Administration Moderate Correctional Scale Insulin Human Lispro 5 units 07/11/19 17:00 07/14/19 11:11 Humalog SC 5 unit AC GAETANO Administration Levothyroxine Sodium 75 mcg 07/12/19 06:00 07/14/19 06:36 Synthroid PO 75 mcg 0600 GAETANO Administration Metoprolol Succinate 25 mg 07/13/19 09:00 07/14/19 08:01 Toprol Xl PO 25 mg DAILY GAETANO Administration Polyethylene Glycol 17 gm 07/12/19 09:00 07/14/19 08:00 Miralax PO 17 gm DAILY GAETANO Administration Potassium Chloride 40 meq 07/13/19 09:00 07/14/19 09:51 K-Dur PO Not Given DAILY GAETANO Rosuvastatin Calcium 40 mg 07/11/19 21:00 07/13/19 20:51 Crestor PO 40 mg HS GAETANO Administration - Exam General Appearance: awake alert General - other findings: morbidly obese ENT: normocephalic atraumatic, moist mucosa Neck: supple Heart: RRR Respiratory: no wheezes, no rales, no ronchi, normal chest expansion Gastrointestinal: soft, non-tender, non-distended, normal bowel sounds Extremities: no cyanosis, no edema Neurological: cranial nerve grossly intact, no focal deficits Psychiatric: A&O x 3 Hosp A/P (1) Acute respiratory failure with hypercapnia Code(s): J96.02 - ACUTE RESPIRATORY FAILURE WITH HYPERCAPNIA Status: Acute (2) Acute non-ST elevation myocardial infarction (NSTEMI) Code(s): I21.4 - NON-ST ELEVATION (NSTEMI) MYOCARDIAL INFARCTION Status: Acute (3) Ventricular tachyarrhythmia Code(s): I47.2 - VENTRICULAR TACHYCARDIA Status: Acute (4) Abnormal LFTs (liver function tests) Code(s): R94.5 - ABNORMAL RESULTS OF LIVER FUNCTION STUDIES Status: Acute (5) Opiate overdose Code(s): T40.601A - POISONING BY UNSP NARCOTICS, ACCIDENTAL, INIT Status: Acute (6) Pulmonary infiltrates Code(s): R91.8 - OTHER NONSPECIFIC ABNORMAL FINDING OF LUNG FIELD Status: Acute (7) Toxic metabolic encephalopathy Code(s): G92 - TOXIC ENCEPHALOPATHY Status: Acute (8) Hypokalemia Code(s): E87.6 - HYPOKALEMIA Status: Acute (9) HTN (hypertension) Code(s): I10 - ESSENTIAL (PRIMARY) HYPERTENSION Status: Acute (10) DM II (diabetes mellitus, type II), controlled Code(s): E11.9 - TYPE 2 DIABETES MELLITUS WITHOUT COMPLICATIONS Status: Chronic Qualifiers: Diabetes mellitus usp insulin use: with intermediate project manager use Diabetes mellitus complication status: with unspecified complications Qualified Code(s) : E11.8 - Type 2 diabetes mellitus with unspecified complications; Z79.4 - medical terminologist (current) use of insulin (11) Hepatitis C Code(s): B19.20 - UNSPECIFIED VIRAL HEPATITIS C WITHOUT HEPATIC COMA Status: Chronic Qualifiers: Viral hepatitis chronicity: chronic Hepatic coma status: without hepatic coma Qualified Code(s): B18.2 - Chronic viral hepatitis C (12) Hypothyroidism Code(s): E03.9 - HYPOTHYROIDISM, UNSPECIFIED Status: Chronic Qualifiers: Hypothyroidism type: unspecified Qualified Code(s): E03.9 - Hypothyroidism , unspecified (13) Morbid obesity Code(s): E66.01 - MORBID (SEVERE) OBESITY DUE TO EXCESS CALORIES Status: Chronic (14) SANDI (obstructive sleep apnea) Code(s): G47.33 - OBSTRUCTIVE SLEEP APNEA (ADULT) (PEDIATRIC) Status: Chronic (15) ANALY (acute kidney injury) Code(s): N17.9 - ACUTE KIDNEY FAILURE, UNSPECIFIED Status: Acute (16) Acute on chronic diastolic (congestive) heart failure Code(s): I50.33 - ACUTE ON CHRONIC DIASTOLIC (CONGESTIVE) HEART FAILURE Status : Acute (17) Hepatopathy Code(s): K76.9 - LIVER DISEASE, UNSPECIFIED Status: Acute (18) Acute diastolic heart failure Code(s): I50.31 - ACUTE DIASTOLIC (CONGESTIVE) HEART FAILURE Status: Acute (19) Physical deconditioning Code(s): R53.81 - OTHER MALAISE Status: Acute - Plan Continue metoprolol. Diuretic as per cardiology Monitor renal function monitor electrolytes nad replete as needed. PT/OT eval and treat. Transfer to tele Awaiting placement.
--- NOTE | 2019-07-14 16:13 | PRG ---
DATE OF SERVICE: 07/14/2019 SERVICE: Pulmonary Medicine. INTERVAL HISTORY: The patient is doing really well from respiratory standpoint. Breathing comfortably. No complaints of chest discomfort, nausea, or vomiting. Otherwise, she has returned to her usual state of health and has no complaints. PHYSICAL EXAMINATION: VITAL SIGNS: Afebrile, pulse 72, blood pressure 140/72, respirations 22, and saturation 98% currently on 2 L nasal cannula. GENERAL: The patient is awake and alert, in no apparent distress. LUNGS: Wonderful air entry with no prolonged expiratory phase. No wheezing or crackles are appreciated. HEART: Normal rate and regular. ABDOMEN: Soft, nontender, and nondistended. Bowel sounds are positive. MUSCULOSKELETAL: No cyanosis or clubbing. There is no pitting in the bilateral lower extremities. NEUROLOGIC: Grossly nonfocal. LABORATORY DATA: Creatinine 0.98. Basic metabolic profile is otherwise unremarkable. AST and ALT continue to improve. Alkaline phosphatase is stable. Liver function studies are otherwise unremarkable. Blood cultures x2 and urine culture remain negative to date. ASSESSMENT: 1. Acute on chronic hypoxic and hypercapnic respiratory failure, returned to baseline. 2. Opiate overdose, resolved. 3. [id number] myocardial infarction secondary to demand. 4. Shock liver, resolved. 5. Chronic kidney disease, stage 2. 6. Type 2 diabetes mellitus. 7. Obstructive sleep apnea, strongly suspected. DISCUSSION AND PLAN: The patient is doing outstanding from a respiratory standpoint. She is stable for transition out of the ICU. That being said, she remains quite weak, and almost fell with physical therapy yesterday. As such, I think it would be reasonable to transition her to a assisted facility pursue rehabilitation prior to transitioning home completely. I will have her return to clinic to see me in the outpatient setting, so that we can expedite an outpatient polysomnogram. She will benefit from this therapy moving forward. Job ID: [id number]
[2019-07-14] MEDS: Gabapentin 300 MG CAP PO SCH (20:38)
[2019-07-14] MEDS: Rosuvastatin 20 MG TAB PO SCH (20:38)
[2019-07-15 04:01] VITALS: TEMP 97.6
[2019-07-15] MEDS: Levothyroxine Sodium 75 MCG TAB PO SCH (05:48)
[2019-07-15] MEDS: HumaLOG 300 UNITS/3 ML VIAL SC SCH ×2 (08:08→10:57)
[2019-07-15] MEDS: Furosemide 40 MG TAB PO SCH (08:08)
[2019-07-15] MEDS: Apixaban 5 MG TAB PO SCH (08:09)
[2019-07-15] MEDS: Polyethylene Glycol 3350 17 GM Packet PO SCH (08:09)
[2019-07-15] MEDS: Aspirin 81 mg Enteric Coated Tablet PO SCH (08:09)
[2019-07-15] MEDS: Famotidine 20 MG TAB PO SCH (08:09)
[2019-07-15] MEDS: Insulin Glargine 15 UNITS in Pre-Filled Syringe 1 EACH SC SCH (08:14)
[2019-07-15] MEDS ORDERED: Lidocaine 5% Patch TD SCH (09:45)
--- NOTE | 2019-07-15 09:46 | PDOC.HOSPP ---
- Subjective Encounter Date: 07/15/19 Encounter Time: 09:45 Subjective: 58 y/o obese female with DM, Cirrhosis, HTN and others admitted on transfer from [facility] with mental status changes after opiate overdose. Responsiveness reportedly improved after narcan but patient remained confused and hallucinating and was found to have acute hypercarbic respiratory failure which did not improve with BIPAP hence was intubated. Patient was found to have abnormal ST changes of EKG associated with elevated troponin as well as wide complex tachycardia hence was started on antithrombotic therapy and amiodarone. Extubated on 07/09/2019. Had C om 07/12/2019 with no obstructive disease. Still complaining of left flank pain. - Objective Vital Signs & Weight: Vital Signs (12 hours) Temp Pulse Pulse Ox 07/15/19 08:00 97.6 F 100 07/15/19 06:24 100 07/15/19 04:00 97.6 F 07/15/19 00:01 74 100 07/15/19 00:00 97.5 F L Weight Admit Weight 264 lb 5.348 oz Weight 260 lb 12.909 oz Most Recent Monitor Data Heart Rate from ECG 82 NIBP 178/89 NIBP BP-Mean 118 Respiration from ECG 16 SpO2 100 I&O: 07/14/19 07/15/19 07/16/19 06:59 06:59 06:59 Intake Total 1834 1270 360 Output Total 1050 1075 450 Balance 784 195 -90 Result Diagrams: 07/12/19 09:03 07/14/19 04:04 Additional Labs: Accuchecks 07/15/19 07/14/19 07/14/19 06:19 20:40 16:56 POC Glucose 121 H 150 H 150 H 07/14/19 11:13 POC Glucose 215 H Hospitalist ROS - Medication Medications: Active Medications Generic Name Dose Route Start Last Admin Trade Name Freq PRN Reason Stop Dose Admin Acetaminophen/Codeine Phosphate 1 tab 07/12/19 12:46 07/13/19 00:08 Tylenol #3 PO 1 tab Q4H PRN Administration Mild Pain (1-3) Apixaban 5 mg 07/13/19 21:00 07/15/19 08:09 Eliquis PO 5 mg BID GAETANO Administration Famotidine 20 mg 07/13/19 21:00 07/15/19 08:09 Pepcid PO 20 mg BID GAETANO Administration Furosemide 40 mg 07/14/19 07:30 07/15/19 08:08 Lasix PO 40 mg DAILY-AC GAETANO Administration Gabapentin 300 mg 07/09/19 21:00 07/14/19 20:38 Neurontin PO 300 mg HS GAETANO Administration Hydralazine HCl 10 mg 07/11/19 05:36 07/12/19 14:16 Apresoline SLOW IVP 10 mg Q4H PRN Administration SBP>170 Insulin Glargine 15 units/ 0.15 mls @ 0 mls/hr 07/09/19 21:00 07/14/19 20:39 Miscellaneous Medication SC 0.15 mls HS GAETANO Administration Insulin Glargine 15 units/ 0.15 mls @ 0 mls/hr 07/10/19 09:00 07/15/19 08:14 Miscellaneous Medication SC 0.15 mls QAM GAETANO Administration Insulin Human Lispro 0 units 07/09/19 10:29 07/13/19 20:52 Humalog SC 2 unit .MODERATE SLIDING SC PRN Administration Moderate Correctional Scale Insulin Human Lispro 5 units 07/11/19 17:00 07/15/19 08:08 Humalog SC 5 unit AC GAETANO Administration Levothyroxine Sodium 75 mcg 07/12/19 06:00 07/15/19 05:48 Synthroid PO 75 mcg 0600 GAETANO Administration Metoprolol Succinate 25 mg 07/13/19 09:00 07/15/19 08:09 Toprol Xl PO 25 mg DAILY GAETANO Administration Polyethylene Glycol 17 gm 07/12/19 09:00 07/15/19 08:09 Miralax PO 17 gm DAILY GAETANO Administration Rosuvastatin Calcium 40 mg 07/11/19 21:00 07/14/19 20:38 Crestor PO 40 mg HS GAETANO Administration - Exam General Appearance: awake alert General - other findings: obese Eye: anicteric sclera ENT: normocephalic atraumatic Neck: symmetric Heart: RRR Respiratory: no wheezes, no rales, no ronchi, normal chest expansion Gastrointestinal: soft, non-tender, non-distended, normal bowel sounds Extremities: 1+ LE edema Neurological: cranial nerve grossly intact, no focal deficits Musculoskeletal - other findings: Left flank tenderness Psychiatric: normal affect, A&O x 3 Hosp A/P (1) Acute respiratory failure with hypercapnia Code(s): J96.02 - ACUTE RESPIRATORY FAILURE WITH HYPERCAPNIA Status: Acute (2) Acute non-ST elevation myocardial infarction (NSTEMI) Code(s): I21.4 - NON-ST ELEVATION (NSTEMI) MYOCARDIAL INFARCTION Status: Acute (3) Ventricular tachyarrhythmia Code(s): I47.2 - VENTRICULAR TACHYCARDIA Status: Acute (4) Abnormal LFTs (liver function tests) Code(s): R94.5 - ABNORMAL RESULTS OF LIVER FUNCTION STUDIES Status: Acute (5) Opiate overdose Code(s): T40.601A - POISONING BY UNSP NARCOTICS, ACCIDENTAL, INIT Status: Acute (6) Pulmonary infiltrates Code(s): R91.8 - OTHER NONSPECIFIC ABNORMAL FINDING OF LUNG FIELD Status: Acute (7) Toxic metabolic encephalopathy Code(s): G92 - TOXIC ENCEPHALOPATHY Status: Acute (8) Hypokalemia Code(s): E87.6 - HYPOKALEMIA Status: Acute (9) HTN (hypertension) Code(s): I10 - ESSENTIAL (PRIMARY) HYPERTENSION Status: Acute (10) DM II (diabetes mellitus, type II), controlled Code(s): E11.9 - TYPE 2 DIABETES MELLITUS WITHOUT COMPLICATIONS Status: Chronic Qualifiers: Diabetes mellitus correction insulin use: with intermediate frame tender use Diabetes mellitus complication status: with unspecified complications Qualified Code(s) : E11.8 - Type 2 diabetes mellitus with unspecified complications; Z79.4 - senior living (current) use of insulin (11) Hepatitis C Code(s): B19.20 - UNSPECIFIED VIRAL HEPATITIS C WITHOUT HEPATIC COMA Status: Chronic Qualifiers: Viral hepatitis chronicity: chronic Hepatic coma status: without hepatic coma Qualified Code(s): B18.2 - Chronic viral hepatitis C (12) Hypothyroidism Code(s): E03.9 - HYPOTHYROIDISM, UNSPECIFIED Status: Chronic Qualifiers: Hypothyroidism type: unspecified Qualified Code(s): E03.9 - Hypothyroidism , unspecified (13) Morbid obesity Code(s): E66.01 - MORBID (SEVERE) OBESITY DUE TO EXCESS CALORIES Status: Chronic (14) SANDI (obstructive sleep apnea) Code(s): G47.33 - OBSTRUCTIVE SLEEP APNEA (ADULT) (PEDIATRIC) Status: Chronic (15) ANALY (acute kidney injury) Code(s): N17.9 - ACUTE KIDNEY FAILURE, UNSPECIFIED Status: Acute (16) Acute on chronic diastolic (congestive) heart failure Code(s): I50.33 - ACUTE ON CHRONIC DIASTOLIC (CONGESTIVE) HEART FAILURE Status : Acute (17) Hepatopathy Code(s): K76.9 - LIVER DISEASE, UNSPECIFIED Status: Acute (18) Acute diastolic heart failure Code(s): I50.31 - ACUTE DIASTOLIC (CONGESTIVE) HEART FAILURE Status: Acute (19) Physical deconditioning Code(s): R53.81 - OTHER MALAISE Status: Acute (20) Left flank pain Code(s): R10.9 - UNSPECIFIED ABDOMINAL PAIN Status: Acute - Plan Start lidocaine patch. Get CT abd/pelv stone protocol to rule out kidney stone. Continue metoprolol and diuretic. Continue anticoagulation with eliquis., Monitor renal function monitor electrolytes and replete as needed. PT/OT eval and treat. Transfer to tele
--- NOTE | 2019-07-15 10:56 | CT ---
CT abdomen and pelvis noncontrast HISTORY: Left flank pain. FINDINGS: Mild atelectasis at the lung bases. Old healed bilateral rib fractures and pelvic fractures and internal fixation of the left hip. Nodular contour of the liver is again demonstrated. Hyperdense material layers within the dependent p ortion of the gallbladder lumen. Each renal collecting system, ureter, and urinary bladder are decompressed. Small areas of dystrophic calcification associated with the cortex of each kidney. Urinary tract calcification is not reliably demonstrated. Lack of contrast limits evaluation of the soft tissues. Small hiatal hernia. Diverticula arise from t he colon without adjacent inflammation. IMPRESSION: No CT evidence of urinary tract obstruction or calcification. Cholelithiasis. No evidence of acute biliary obstruction. Small hiatal hernia. Diverticulosis. No evidence of diverticulitis.
--- NOTE | 2019-07-15 14:37 | PRG ---
DATE OF SERVICE: 07/15/2019 SERVICE: Pulmonary Medicine. INTERVAL HISTORY: The patient is doing really well from respiratory standpoint. She is breathing comfortably on 2 L nasal cannula. No complaints of chest discomfort, nausea or vomiting. Rehab screen was done yesterday. We are waiting to hear whether or not she is a candidate. If she is, she would like to be out today. PHYSICAL EXAMINATION: VITAL SIGNS: Afebrile, pulse 89, blood pressure 153/78, respirations 19, saturation 98%, currently on 1 L nasal cannula. GENERAL: The patient is awake and alert, in no apparent distress. LUNGS: Wonderful air entry with not much in the way of a prolonged expiratory phase. I do not hear any crackles or wheezing present. HEART: Normal rate, regular. ABDOMEN: Soft, nontender, nondistended, bowel sounds are positive. MUSCULOSKELETAL: No cyanosis or clubbing. There is no pitting in the bilateral lower extremities. NEUROLOGIC: Grossly nonfocal. LABORATORY DATA: Blood sugars ranged from 121 to 215. IMAGING DATA: CT of the abdomen and pelvis demonstrates a small hiatal hernia, but no evidence of what is causing her left-sided flank discomfort. ASSESSMENT: 1. Acute on chronic hypoxic and hypercapnic respiratory failure, at baseline. 2. Opiate overdose, resolved. 3. Vex-HG-doltmfjck myocardial infarction secondary to demand. 4. Shock liver, resolved. 5. Chronic kidney disease, stage 2. 6. Type 2 diabetes mellitus. 7. Obstructive sleep apnea, severe. DISCUSSION AND PLAN: The patient will need to initiate an autotitrating BiPAP machine. She has had a sleep study done. The pressure settings were already suggested. We will see if we can get this arranged. I have put out a prescription for this device to [facility]. Pulmonary will continue to follow if she remains in-house, but from purely respiratory standpoint, she is stable for transition out. Job ID: [id number] MTDD
[2019-07-15] MEDS ORDERED: Lidocaine Patch Removal 1 EACH TOP SCH (21:00)
[2019-07-16] MEDS ORDERED: Lidocaine 5% Patch TD SCH (09:00)
--- NOTE | 2019-07-18 08:13 | DIS ---
DATE OF ADMISSION: 07/08/2019 DATE OF DISCHARGE: 07/15/2019 PRIMARY CARE PHYSICIAN: Alina Rascon MD. DISCHARGE DIAGNOSES: 1. Acute respiratory failure with hypoxia and hypercapnia. 2. Acute on chronic diastolic heart failure. 3. Presumed obesity hypoventilation syndrome. 4. Obstructive sleep apnea. 5. Acute non-ST elevation myocardial infarction. 6. Wide-complex tachyarrhythmia. 7. Toxic metabolic encephalopathy. 8. Opioid overdose. 9. Abnormal liver function tests. 10. Shock liver. 11. Hypokalemia. 12. Hypertension. 13. Type 2 diabetes mellitus. 14. Hepatitis C infection. 15. Hypothyroidism. 16. Morbid obesity. 17. Acute kidney injury. 18. Left flank pain. 19. Physical deconditioning. 20. Paroxysmal atrial fibrillation. 21. Left flank pain. 22. Hyperlipidemia. CONSULTS: 1. Cardiology. 2. Pulmonary and Critical Care. 3. PT and OT. HOSPITAL COURSE: A 58-year-old morbidly obese female with known history of diabetes, cirrhosis, hypertension, and others, admitted on transfer from [facility] with mental status change as well as respiratory suppression thought to be due to opioid overdose. The patient reportedly had presented to the ER the day prior due to left flank pain and was given narcotics and discharged home. However, at home, she was found to be unresponsive with decreased respiratory effort and was subsequently brought to the hospital. The patient was confused and responsiveness reportedly improved after Narcan injection, but due to persistence of confusion and hallucination as well as worsening acute hypercarbic respiratory failure despite BiPAP therapy, she was intubated. She was admitted to the ICU. Further evaluation revealed abnormal ST changes on EKG as well as wide-complex tachycardia. Further evaluation also revealed elevated troponin, hence the patient was started on antithrombotic therapy as well as amiodarone infusion. Mental status improved and patient was obeying commands and was subsequently extubated on July 09, 2019. She however was extubated directly to BiPAP and BiPAP was subsequently weaned slowly. The patient also had bilateral infiltrates concerning for pneumonia and CHF. Echocardiogram showed preserved systolic function with diastolic dysfunction. The patient was treated with diuretics with improvement. She also received bronchodilators. Hospital course was complicated by acute kidney injury as well as electrolyte derangements which were all addressed. Cardiology saw the patient and later she had a left heart catheterization, which showed no obstructive disease. Hospital course also was complicated by development of paroxysmal atrial fibrillation, hence the patient was started on anticoagulation with Eliquis. The patient improved, but was found to be physically deconditioned and was subsequently discharged to inpatient rehabilitation for further restorative therapy. Given the patient's body habitus, she was felt to have obstructive sleep apnea and was recommended to follow up with sleep study for further evaluation and treatment. PHYSICAL EXAMINATION: VITAL SIGNS: Temperature 97.6, pulse 89, respiratory rate 19, SpO2 94%. Blood pressure is 153/78. GENERAL: Morbidly obese female, in no obvious distress. Afebrile. Anicteric. Acyanotic. HEENT: Normocephalic, atraumatic. Oral mucosa is moist. CARDIOVASCULAR: Regular rhythm and rate with normal heart sounds 1 and 2. RESPIRATORY: Fair air entry bilateral, decreased at bases with some transmitted breath sounds. No rhonchi were appreciated. GI: Morbidly obese, soft, nontender, nondistended with normal bowel sounds. EXTREMITIES: Trace to mild bilateral leg edema noted. NEUROLOGIC: Conscious and alert, oriented x3 with appropriate mental status. Cranial nerves 2 through 12 are grossly intact. DISCHARGE DISPOSITION: Inpatient rehab [facility]. DISCHARGE CONDITION: Improved. DISCHARGE INSTRUCTIONS: To follow up with 1. Dr. Denton, Pulmonology, in [address] Ulises Piedra, hand outside cutter, in 3 to 4 weeks. 3. Primary care physician on discharge from acute rehab. DISCHARGE MEDICATIONS: 1. Calcium carbonate 1000 mg p.o. q.i.d. p.r.n. 2. Neurontin 300 mg p.o. daily at bedtime. 3. Levothyroxine 75 mcg p.o. daily in the morning. 4. Metformin 1000 mg p.o. b.i.d. 5. Multivitamin one tablet p.o. daily. 6. Crestor 40 mg p.o. daily at bedtime. 7. Acetaminophen with Codeine 300/30 one tablet q.4 p.r.n. 8. Eliquis 5 mg p.o. b.i.d. 9. Furosemide 40 mg p.o. daily. 10. Humalog sliding scale. 11. Insulin Levemir 30 units subcutaneously b.i.d. 12. Lidocaine patch, one patch daily. 13. Metoprolol succinate 25 mg p.o. daily. 14. MiraLAX 17 g p.o. daily. 15. Spironolactone 1000 mg p.o. daily. This discharge took more than 39 minutes. Job ID: [id number]
== END 2019-07-15 14:25 | DRG 917 ==
LOC: ERS 19:09 → CCU 21:00
PROVIDERS: ADMIT Internal Medicine; ATTEND Internal Medicine
PROC: 4A023N7 Measurement of Cardiac Sampling and Pressure, Left Heart, Percutaneous Approach (ICD-10-PCS; principal; 2019-07-12)
PROC: B2111ZZ Fluoroscopy of Multiple Coronary Arteries using Low Osmolar Contrast (ICD-10-PCS; 2019-07-12)
DX: T40.601A Poisoning by unspecified narcotics, accidental (unintentional), initial encounter (principal); J96.22 Acute and chronic respiratory failure with hypercapnia; I21.A1 Myocardial infarction type 2; K72.00 Acute and subacute hepatic failure without coma; G92 Toxic encephalopathy; I50.33 Acute on chronic diastolic (congestive) heart failure; Z68.42 Body mass index [BMI] 45.0-49.9, adult; I47.2 Ventricular tachycardia; N17.9 Acute kidney failure, unspecified; I13.0 Hypertensive heart and chronic kidney disease with heart failure and stage 1 through stage 4 chronic kidney disease, or unspecified chronic kidney disease; E11.22 Type 2 diabetes mellitus with diabetic chronic kidney disease; G47.33 Obstructive sleep apnea (adult) (pediatric); E87.6 Hypokalemia; N18.2 Chronic kidney disease, stage 2 (mild); E66.01 Morbid (severe) obesity due to excess calories; Z96.612 Presence of left artificial shoulder joint; Z96.611 Presence of right artificial shoulder joint; E78.5 Hyperlipidemia, unspecified; K74.60 Unspecified cirrhosis of liver; B19.20 Unspecified viral hepatitis C without hepatic coma; E03.9 Hypothyroidism, unspecified; Z79.4 Long term (current) use of insulin; Z90.710 Acquired absence of both cervix and uterus
CPT/HCPCS: 31500; 36415; 36416; 36556; 71045; 71275; 74176; 74177; 76942; 80053; 80061; 80306; 80307; 82550; 82570; 82805; 83605; 83690; 83735; 83880; 84100; 84300; 84484; 84540; 85025; 85520; 87086; 93005; 93306; 93458; 93798; 94003; 94660; 94760; 96361; 96365; 96366; 96368; 96372; 96374; 96375; 96376; 99152; 99292; C1769; J0282; J0360; J1644; J1650; J1815; J1940; J1956; J2001; J2250; J2270; J2405; J2704; J3010; J3370; J3475; J3490; J7070; Q9967

== ENCOUNTER 2021-02-05 18:23 | Inpatient (IN) | payer MEDICARE ==
[2021-02-05 18:48] LABS: Bilirubin Negative (Negative); Blood, Urine Small (Negative); Glucose, Urine (Dipstick) Negative (Negative); Ketone, Urine Negative (Negative); Leukocyte Moderate (Negative); Nitrite Positive (Negative); Protein, Urine (Dipstick) 30 mg/dL (Neg-Trace); Specific Gravity, Urine 1.025 (1.005-1.030); pH, Urine 5.5 (5.0-9.0)
[2021-02-05 18:48] LABS: Actual Bicarbonate (HCO3a) 25.9 mEq/L (22-28); Analyzer IN Cardio ER; CO2 Tension 46.6 mmHg (35.0-45.0); Calcium, Ionized (arterial) 1.16 mmol/L (1.12-1.30); Carboxyhemoglobin (COHb) 1.1 gm% (0.0-3.0); Hemoglobin (Hb) 13.3 g/dL (12.0-16.0); O2 Tension (PaO2), arterial 64.4 mmHg (> 80.0); Potassium - ABG Lab 4.21 mmol/L (3.70-5.30); pH, Arterial 7.36 (7.35-7.45)
[2021-02-05 18:50] LABS: Clarity Clear (Clear)
[2021-02-05 18:53] LABS: Bacteria/HPF 4+ HPF (None Seen); Squamous Epithelial 0-3 HPF (0-3); WBC/HPF Greater than 50 HPF (0-3)
[2021-02-05 18:55] LABS: Puncture Site RRA
[2021-02-05 19:27] LABS: SARS-CoV-2 NAA Rapid Test Not Detected (NotDetected)
[2021-02-05 20:05] LABS: #Eosinphils 0.1 thou/uL (0.0-0.7); #Lymphocytes 1.6 thou/uL (1.20-3.40); #Neutrophils 7.5 thou/uL (1.40-6.50); %Basophils 0.2 % (0.0-1.0); %Eosinophils 0.9 % (0.0-10.0); %Lymphocytes 15.8 % (21.0-51.0); %Monocytes 9.5 % (0.0-10.0); %Neutrophils 73.6 % (42.0-75.0); Hemoglobin 12.9 g/dL (12.0-16.0); Mean Corpuscular HGB CONC 32.8 g/dL (32.0-36.0); Mean Corpuscular Hemoglobin 30.8 pg (27.0-31.0); Mean Corpuscular Volume 94.1 fL (78.0-98.0); Mean Platelet Volume 6.7 fL (7.4-10.4); Platelet Count 146 thou/uL (130-400); RBC Distribution Width 15.2 % (11.5-14.5); Red Blood Cell (RBC) Count 4.17 mill/uL (4.20-5.40); White Blood Cell (WBC) Count 10.1 thou/uL (4.8-10.8)
[2021-02-05 20:19] LABS: ALT (SGPT) 19 U/L (8-55); AST (SGOT) 25 U/L (5-34); Albumin 2.7 g/dL (3.5-5.0); Alkaline Phosphatase 66 U/L (40-110); Anion Gap 12 mmol/L (10-20); BUN (Urea Nitrogen) 35 mg/dL (9.8-20.1); Bilirubin, Total 0.6 mg/dL (0.2-1.2); Calc. Creatinine Clearance 0 mL/min (70-130); Calcium 7.7 mg/dL (7.8-10.44); Carbon Dioxide 27 mmol/L (22-29); Chloride 106 mmol/L (98-107); Globulin 2.4 g/dL (2.4-3.5); Glucose 78 mg/dL (70-105); Potassium 4.2 mmol/L (3.5-5.1); Protein, Total 5.1 g/dL (6.0-8.3); Sodium 141 mmol/L (136-145)
[2021-02-05] MEDS ORDERED: Fentanyl 100 MCG/2 ML VIAL ONE (20:37)
[2021-02-05] MEDS ORDERED: Vancomycin 1 GM/200 ML BAG ONE (20:46)
[2021-02-05] MEDS ORDERED: Piperacillin/Tazobactam 4.5 GM VIAL ONE (20:46)
[2021-02-05] MEDS ORDERED: Norepinephrine 8 MG/0.9% NS 250 ML IVPB SCH ×2 (21:00→22:30)
[2021-02-05] MEDS ORDERED: Fentanyl CADD 100 ML IV SCH ×2 (21:00→22:30)
[2021-02-05] MEDS ORDERED: Acetaminophen 325 MG TAB PO PRN (22:30)
[2021-02-05] MEDS ORDERED: Ondansetron ODT 4 MG TAB SL PRN (22:30)
[2021-02-05] MEDS ORDERED: DISCONTINUE PREVIOUS NARCOTIC PAIN MEDICATIONS AND BENZODIAZEPINES FS SCH (22:30)
[2021-02-05] MEDS ORDERED: Sodium Chloride 0.9% 1,000 ML IV SCH (22:30)
[2021-02-05] MEDS ORDERED: Propofol BOLUS 1,000 MG/100 ML VIAL IV PRN (22:30)
[2021-02-05] MEDS ORDERED: Ondansetron PF 4 MG/2 ML Vial IVP PRN (22:30)
[2021-02-05] MEDS ORDERED: Fentanyl BOLUS 250 ML IVPB PRN (22:30)
[2021-02-05] MEDS ORDERED: Lorazepam 2 MG/ML VIAL SLOW IVP PRN (22:30)
[2021-02-05] MEDS ORDERED: Ventilator Sedation Protocol 1 EACH FS SCH (22:45)
[2021-02-05] MEDS: Propofol 1,000 MG/100 ML VIAL IV PRN (22:54)
[2021-02-05] MEDS: Sodium Chloride 0.9% 1,000 ML IV SCH (23:31)
[2021-02-05] MEDS ORDERED: Piperacillin/Tazobactam 3.375 GM in Sodium Chloride 0.9% 100 ML IVPB SCH (23:59)
[2021-02-06] MEDS: Vancomycin 1 GM in Premix Bag 1 BAG IVPB SCH ×2 (00:53→23:58)
[2021-02-06] MEDS: Piperacillin/Tazobactam 3.375 GM in Sodium Chloride 0.9% 100 ML IVPB SCH ×4 (02:13→20:44)
[2021-02-06 04:22] LABS: #Eosinphils 0.1 thou/uL (0.0-0.7); #Lymphocytes 1.3 thou/uL (1.20-3.40); #Monocytes 0.9 thou/uL (0.11-0.59); #Neutrophils 9.2 thou/uL (1.40-6.50); %Basophils 0.4 % (0.0-1.0); %Eosinophils 0.5 % (0.0-10.0); %Lymphocytes 11.3 % (21.0-51.0); %Neutrophils 79.8 % (42.0-75.0); Hemoglobin 12.7 g/dL (12.0-16.0); Mean Corpuscular HGB CONC 31.8 g/dL (32.0-36.0); Mean Corpuscular Hemoglobin 29.7 pg (27.0-31.0); Mean Corpuscular Volume 93.5 fL (78.0-98.0); Mean Platelet Volume 7.5 fL (7.4-10.4); Platelet Count 173 thou/uL (130-400); RBC Distribution Width 15.4 % (11.5-14.5); Red Blood Cell (RBC) Count 4.29 mill/uL (4.20-5.40); White Blood Cell (WBC) Count 11.5 thou/uL (4.8-10.8)
[2021-02-06 04:53] LABS: Anion Gap 14 mmol/L (10-20); BUN (Urea Nitrogen) 32 mg/dL (9.8-20.1); Calc. Creatinine Clearance 72 mL/min (70-130); Calcium 8.3 mg/dL (7.8-10.44); Carbon Dioxide 24 mmol/L (22-29); Chloride 105 mmol/L (98-107); Glucose 65 mg/dL (70-105); Potassium 4.7 mmol/L (3.5-5.1); Sodium 138 mmol/L (136-145)
[2021-02-06] MEDS ORDERED: Dextrose 50% Abboject 50 ML SYRINGE ONE (05:08)
[2021-02-06] MEDS ORDERED: Dextrose 5% in Water 1,000 ML IV PRN ×2 (05:15→12:20)
[2021-02-06] MEDS ORDERED: Dextrose 50% Abboject 50 ML SYRINGE IVP PRN (05:15)
[2021-02-06 07:06] LABS: Actual Bicarbonate (HCO3a) 20.2 mEq/L (22-28); Base Excess (BEa) 0.3 mEq/L (-2.0 to +3.0); Calcium, Ionized (arterial) 1.07 mmol/L (1.12-1.30); Carboxyhemoglobin (COHb) 0.7 gm% (0.0-3.0); Hemoglobin (Hb) 13.2 g/dL (12.0-16.0); Potassium - ABG Lab 4.14 mmol/L (3.70-5.30)
[2021-02-06 07:11] LABS: ALV-art Gradient 318.675 mmHg (0-20); CO2 Tension 21.7 mmHg (35.0-45.0); Puncture Site RRA; pH, Arterial 7.59 (7.35-7.45)
[2021-02-06] MEDS: Sodium Chloride 0.9% 1,000 ML IV SCH ×2 (07:48→18:28)
[2021-02-06] MEDS ORDERED: Vancomycin 1.5 GRAM/300 ML BAG 1.5 GM in Premix Bag 1 BAG IVPB SCH (09:00)
[2021-02-06 09:35] LABS: Amphetamine Not Detected (NotDetected); Barbiturates Screen Not Detected (NotDetected); Benzodiazepine Screen Not Detected (NotDetected); Cocaine Metabolite Screen Not Detected (NotDetected); Medtox Control Line Valid? VALID (VALID); Medtox Reader # READER 1; Methadone Not Detected (NotDetected); Methamphetamine Not Detected (NotDetected); Opiate Screen Not Detected (NotDetected); Oxycodone Screen Not Detected (NotDetected); Phencyclidine (PCP) Not Detected (NotDetected); THC/Cannabinoid Screen Not Detected (NotDetected); Tricyclic Screen Not Detected (NotDetected)
[2021-02-06] MEDS: Apixaban 5 MG TAB PO SCH (20:44)
[2021-02-06] MEDS: HumaLOG 300 UNITS/3 ML VIAL SC PRN (22:40)
[2021-02-06] MEDS: Morphine 2 MG/ML VIAL SLOW IVP PRN (22:56)
[2021-02-07] MEDS: Sodium Chloride 0.9% 1,000 ML IV SCH ×3 (01:32→16:19)
[2021-02-07] MEDS ORDERED: Ondansetron PF 4 MG/2 ML Vial IVP PRN (03:36)
[2021-02-07] MEDS: Morphine 2 MG/ML VIAL SLOW IVP PRN (03:39)
[2021-02-07] MEDS: Piperacillin/Tazobactam 3.375 GM in Sodium Chloride 0.9% 100 ML IVPB SCH ×4 (03:39→20:55)
[2021-02-07 03:55] LABS: #Eosinphils 0.1 thou/uL (0.0-0.7); #Lymphocytes 1.3 thou/uL (1.20-3.40); #Neutrophils 9.3 thou/uL (1.40-6.50); %Basophils 0.3 % (0.0-1.0); %Eosinophils 0.5 % (0.0-10.0); %Lymphocytes 10.8 % (21.0-51.0); %Monocytes 8.6 % (0.0-10.0); %Neutrophils 79.8 % (42.0-75.0); Hemoglobin 12.6 g/dL (12.0-16.0); Mean Corpuscular HGB CONC 33.6 g/dL (32.0-36.0); Mean Corpuscular Hemoglobin 31.1 pg (27.0-31.0); Mean Corpuscular Volume 92.5 fL (78.0-98.0); Mean Platelet Volume 6.9 fL (7.4-10.4); Platelet Count 161 thou/uL (130-400); RBC Distribution Width 15.2 % (11.5-14.5); Red Blood Cell (RBC) Count 4.06 mill/uL (4.20-5.40); White Blood Cell (WBC) Count 11.7 thou/uL (4.8-10.8)
[2021-02-07 04:16] LABS: ALT (SGPT) 19 U/L (8-55); AST (SGOT) 25 U/L (5-34); Albumin 2.7 g/dL (3.5-5.0); Alkaline Phosphatase 66 U/L (40-110); Anion Gap 13 mmol/L (10-20); BUN (Urea Nitrogen) 27 mg/dL (9.8-20.1); Bilirubin, Total 0.6 mg/dL (0.2-1.2); Calc. Creatinine Clearance 74 mL/min (70-130); Calcium 8.7 mg/dL (7.8-10.44); Carbon Dioxide 24 mmol/L (22-29); Chloride 106 mmol/L (98-107); Globulin 3.2 g/dL (2.4-3.5); Glucose 183 mg/dL (70-105); Magnesium 2.1 mg/dL (1.6-2.6); Potassium 3.5 mmol/L (3.5-5.1); Protein, Total 5.9 g/dL (6.0-8.3); Sodium 139 mmol/L (136-145)
[2021-02-07] MEDS: Levothyroxine Sodium 75 MCG TAB PO SCH (04:28)
[2021-02-07] MEDS: HumaLOG 300 UNITS/3 ML VIAL SC PRN ×2 (04:29→10:23)
[2021-02-07] MEDS: Propofol 1,000 MG/100 ML VIAL IV PRN ×2 (04:29→17:39)
[2021-02-07] MEDS: Apixaban 5 MG TAB PO SCH ×2 (09:05→20:54)
[2021-02-07] MEDS ORDERED: Prevnar 13-Val Conj/PF 0.5 ML SYRINGE IM ONE (11:00)
[2021-02-07] MEDS ORDERED: Pantoprazole 40 MG VIAL IVP SCH (11:30)
[2021-02-07] MEDS ORDERED: Polyethylene Glycol 3350 17 GM Packet PER TUBE PRN (12:09)
[2021-02-07] MEDS: Metoclopramide HCl 10 MG/2 ML VIAL IVP SCH ×2 (14:28→21:56)
[2021-02-07 23:15] LABS: Vancomycin, Trough 21.8 ug/mL
[2021-02-07] MEDS: Vancomycin HCl 750 MG in Sodium Chloride 0.9% 250 ML 250 ML IVPB SCH (23:58)
[2021-02-08] MEDS: Piperacillin/Tazobactam 3.375 GM in Sodium Chloride 0.9% 100 ML IVPB SCH ×4 (03:55→21:04)
[2021-02-08] MEDS: Sodium Chloride 0.9% 1,000 ML IV SCH ×3 (04:15→18:37)
[2021-02-08 04:50] LABS: ALT (SGPT) 16 U/L (8-55); AST (SGOT) 20 U/L (5-34); Albumin 2.3 g/dL (3.5-5.0); Alkaline Phosphatase 58 U/L (40-110); Anion Gap 12 mmol/L (10-20); BUN (Urea Nitrogen) 19 mg/dL (9.8-20.1); Bilirubin, Total 0.4 mg/dL (0.2-1.2); Calc. Creatinine Clearance 96 mL/min (70-130); Calcium 8.1 mg/dL (7.8-10.44); Carbon Dioxide 22 mmol/L (22-29); Chloride 111 mmol/L (98-107); Globulin 2.8 g/dL (2.4-3.5); Glucose 130 mg/dL (70-105); Potassium 3.4 mmol/L (3.5-5.1); Protein, Total 5.1 g/dL (6.0-8.3); Sodium 142 mmol/L (136-145)
[2021-02-08 04:56] LABS: Band 2 % (5-11); Hemoglobin 10.8 g/dL (12.0-16.0); Hypochromia SLIGHT = 6-15 cells (100X) (0-5/hpf); Lymphocytes 6 % (21-51); MDiff Complete? YES; Mean Corpuscular Hemoglobin 29.1 pg (27.0-31.0); Mean Platelet Volume 6.8 fL (7.4-10.4); Monocytes 10 % (0-10); Neutrophil 82 % (42-75); Platelet Count 137 thou/uL (130-400); Platelet Morphology Comment Appears Adequate; RBC Distribution Width 15.1 % (11.5-14.5); Red Blood Cell (RBC) Count 3.72 mill/uL (4.20-5.40); White Blood Cell (WBC) Count 9.4 thou/uL (4.8-10.8)
[2021-02-08] MEDS: Levothyroxine Sodium 75 MCG TAB PO SCH (06:26)
[2021-02-08] MEDS: Metoclopramide HCl 10 MG/2 ML VIAL IVP SCH ×3 (06:26→21:04)
[2021-02-08 06:33] LABS: Bilirubin Small (Negative); Blood, Urine Large (Negative); Glucose, Urine (Dipstick) Negative (Negative); Ketone, Urine 40 mg/dL (Negative); Leukocyte Small (Negative); Nitrite Positive (Negative); Protein, Urine (Dipstick) > or equal to 300 mg/dL (Neg-Trace); pH, Urine 6.5 (5.0-9.0)
[2021-02-08 06:38] LABS: Bacteria/HPF 2+ HPF (None Seen); Clarity Extra Turbid (Clear); RBC/HPF Greater than 50 HPF (0-3); Squamous Epithelial None Seen HPF (0-3); WBC/HPF Greater than 50 HPF (0-3)
[2021-02-08] MEDS: Apixaban 5 MG TAB PO SCH ×2 (09:26→21:04)
[2021-02-08] MEDS: Pantoprazole 40 MG VIAL IVP SCH (09:26)
[2021-02-08] MEDS: Propofol 1,000 MG/100 ML VIAL IV PRN (18:15)
[2021-02-08] MEDS: Budesonide 0.5 MG/2 ML NEB NEB SCH (19:08)
[2021-02-08] MEDS: Vancomycin HCl 750 MG in Sodium Chloride 0.9% 250 ML 250 ML IVPB SCH (23:10)
[2021-02-09] MEDS: Sodium Chloride 0.9% 1,000 ML IV SCH ×3 (03:26→18:25)
[2021-02-09] MEDS: Piperacillin/Tazobactam 3.375 GM in Sodium Chloride 0.9% 100 ML IVPB SCH ×4 (03:55→19:57)
[2021-02-09 04:55] LABS: Hemoglobin 11.6 g/dL (12.0-16.0); Mean Corpuscular HGB CONC 32.5 g/dL (32.0-36.0); Mean Corpuscular Hemoglobin 30.5 pg (27.0-31.0); Mean Corpuscular Volume 93.6 fL (78.0-98.0); Mean Platelet Volume 6.8 fL (7.4-10.4); Platelet Count 156 thou/uL (130-400); RBC Distribution Width 14.9 % (11.5-14.5); Red Blood Cell (RBC) Count 3.82 mill/uL (4.20-5.40); White Blood Cell (WBC) Count 9.7 thou/uL (4.8-10.8)
[2021-02-09 05:02] LABS: Anion Gap 16 mmol/L (10-20); BUN (Urea Nitrogen) 14 mg/dL (9.8-20.1); Calc. Creatinine Clearance 105 mL/min (70-130); Calcium 8.3 mg/dL (7.8-10.44); Carbon Dioxide 18 mmol/L (22-29); Chloride 113 mmol/L (98-107); Glucose 102 mg/dL (70-105); Potassium 3.2 mmol/L (3.5-5.1); Sodium 144 mmol/L (136-145)
[2021-02-09 05:17] LABS: Band 8 % (5-11); Lymphocytes 15 % (21-51); MDiff Complete? YES; Monocytes 7 % (0-10); Neutrophil 70 % (42-75); Platelet Morphology Comment Appears Adequate
[2021-02-09] MEDS: Levothyroxine Sodium 75 MCG TAB PO SCH (06:25)
[2021-02-09] MEDS: Metoclopramide HCl 10 MG/2 ML VIAL IVP SCH ×2 (06:26→15:18)
[2021-02-09] MEDS: Budesonide 0.5 MG/2 ML NEB NEB SCH ×2 (07:08→18:11)
[2021-02-09 08:10] LABS: Actual Bicarbonate (HCO3a) 17.5 mEq/L (22-28); Base Excess (BEa) -5.6 mEq/L (-2.0 to +3.0); CO2 Tension 27.1 mmHg (35.0-45.0); Calcium, Ionized (arterial) 1.18 mmol/L (1.12-1.30); Carboxyhemoglobin (COHb) 0.3 gm% (0.0-3.0); Hemoglobin (Hb) 10.8 g/dL (12.0-16.0); O2 Tension (PaO2), arterial 71.3 mmHg (> 80.0); Potassium - ABG Lab 3.21 mmol/L (3.70-5.30); pH, Arterial 7.43 (7.35-7.45)
[2021-02-09 08:11] LABS: Puncture Site RBA
[2021-02-09 08:13] LABS: ALV-art Gradient 180.025 mmHg (0-20)
[2021-02-09] MEDS: Pantoprazole 40 MG VIAL IVP SCH (08:38)
[2021-02-09] MEDS: Apixaban 5 MG TAB PO SCH ×2 (08:38→19:57)
[2021-02-09 23:33] LABS: Vancomycin, Trough 16.4 ug/mL
[2021-02-09] MEDS: Vancomycin HCl 750 MG in Sodium Chloride 0.9% 250 ML 250 ML IVPB SCH (23:53)
[2021-02-10] MEDS: Piperacillin/Tazobactam 3.375 GM in Sodium Chloride 0.9% 100 ML IVPB SCH ×4 (03:05→20:04)
[2021-02-10] MEDS: Sodium Chloride 0.9% 1,000 ML IV SCH ×2 (03:06→11:42)
[2021-02-10 04:27] LABS: Band 3 % (5-11); Hemoglobin 10.6 g/dL (12.0-16.0); Lymphocytes 23 % (21-51); MDiff Complete? YES; Mean Corpuscular HGB CONC 32.2 g/dL (32.0-36.0); Mean Corpuscular Hemoglobin 30.9 pg (27.0-31.0); Mean Corpuscular Volume 95.9 fL (78.0-98.0); Mean Platelet Volume 6.2 fL (7.4-10.4); Monocytes 6 % (0-10); Neutrophil 67 % (42-75); Platelet Count 158 thou/uL (130-400); Platelet Morphology Comment Appears Adequate; RBC Distribution Width 14.8 % (11.5-14.5); Red Blood Cell (RBC) Count 3.44 mill/uL (4.20-5.40); White Blood Cell (WBC) Count 8.2 thou/uL (4.8-10.8)
[2021-02-10 04:28] LABS: Anion Gap 11 mmol/L (10-20); BUN (Urea Nitrogen) 10 mg/dL (9.8-20.1); Calc. Creatinine Clearance 136 mL/min (70-130); Calcium 8.5 mg/dL (7.8-10.44); Carbon Dioxide 22 mmol/L (22-29); Chloride 115 mmol/L (98-107); Glucose 95 mg/dL (70-105); Sodium 145 mmol/L (136-145)
[2021-02-10 04:30] LABS: Potassium 2.9 mmol/L (3.5-5.1)
[2021-02-10 05:07] VITALS: BMI 50.8
[2021-02-10] MEDS ORDERED: Electrolyte Replacement Protocol FS PRN (05:15)
[2021-02-10] MEDS: Levothyroxine Sodium 75 MCG TAB PO SCH (05:19)
[2021-02-10] MEDS: Potassium Chloride 20 MEQ TAB PO SCH ×4 (05:20→18:12)
[2021-02-10] MEDS ORDERED: Magnesium 2 GM/50 ML 2 GM in Premix Bag 1 BAG IVPB SCH (06:15)
[2021-02-10] MEDS: Budesonide 0.5 MG/2 ML NEB NEB SCH ×2 (06:45→18:13)
[2021-02-10] MEDS: Pantoprazole 40 MG VIAL IVP SCH (08:46)
[2021-02-10] MEDS: Apixaban 5 MG TAB PO SCH ×2 (08:47→20:03)
[2021-02-10] MEDS: Lisinopril 20 MG TAB PO SCH (08:47)
[2021-02-10] MEDS ORDERED: Furosemide 20 MG TAB PO SCH (09:00)
[2021-02-10] MEDS: HumaLOG 300 UNITS/3 ML VIAL SC PRN (11:33)
[2021-02-10 12:10] LABS: Potassium 3.5 mmol/L (3.5-5.1)
[2021-02-10] MEDS: Bumetanide 1 MG/4 ML VIAL IVP SCH (14:26)
[2021-02-11] MEDS: Vancomycin HCl 750 MG in Sodium Chloride 0.9% 250 ML 250 ML IVPB SCH ×2 (00:15→23:50)
[2021-02-11] MEDS: Potassium Chloride 20 MEQ TAB PO SCH (00:15)
[2021-02-11] MEDS: Piperacillin/Tazobactam 3.375 GM in Sodium Chloride 0.9% 100 ML IVPB SCH ×4 (02:46→20:03)
[2021-02-11 04:11] LABS: Hemoglobin 10.8 g/dL (12.0-16.0); Mean Corpuscular HGB CONC 32.9 g/dL (32.0-36.0); Mean Corpuscular Hemoglobin 31.1 pg (27.0-31.0); Mean Corpuscular Volume 94.5 fL (78.0-98.0); Platelet Count 138 thou/uL (130-400); RBC Distribution Width 14.7 % (11.5-14.5); Red Blood Cell (RBC) Count 3.49 mill/uL (4.20-5.40); White Blood Cell (WBC) Count 7.9 thou/uL (4.8-10.8)
[2021-02-11 04:28] LABS: Anion Gap 12 mmol/L (10-20); BUN (Urea Nitrogen) 9 mg/dL (9.8-20.1); Calc. Creatinine Clearance 105 mL/min (70-130); Calcium 8.7 mg/dL (7.8-10.44); Carbon Dioxide 19 mmol/L (22-29); Chloride 114 mmol/L (98-107); Glucose 168 mg/dL (70-105); Magnesium 2.2 mg/dL (1.6-2.6); Potassium 4.2 mmol/L (3.5-5.1); Sodium 141 mmol/L (136-145)
[2021-02-11 04:30] LABS: Eosinophils 1 % (0-10); Lymphocytes 23 % (21-51); MDiff Complete? YES; Monocytes 8 % (0-10); Neutrophil 67 % (42-75); Platelet Morphology Comment Appears Adequate
[2021-02-11] MEDS: Levothyroxine Sodium 75 MCG TAB PO SCH (05:32)
[2021-02-11] MEDS: Furosemide 40 MG/4 ML VIAL SLOW IVP SCH ×2 (05:32→15:07)
[2021-02-11] MEDS: Bumetanide 1 MG/4 ML VIAL IVP SCH ×2 (05:32→15:07)
[2021-02-11] MEDS: Budesonide 0.5 MG/2 ML NEB NEB SCH ×2 (06:51→18:36)
[2021-02-11] MEDS: Apixaban 5 MG TAB PO SCH ×2 (08:58→20:04)
[2021-02-11] MEDS: Lisinopril 20 MG TAB PO SCH (08:58)
[2021-02-11] MEDS: Pantoprazole 40 MG VIAL IVP SCH (08:59)
[2021-02-11] MEDS: HumaLOG 300 UNITS/3 ML VIAL SC PRN ×2 (11:53→17:50)
[2021-02-11 23:36] LABS: Vancomycin, Trough 19.3 ug/mL
[2021-02-12] MEDS: Piperacillin/Tazobactam 3.375 GM in Sodium Chloride 0.9% 100 ML IVPB SCH ×4 (02:04→20:17)
[2021-02-12] MEDS: Bumetanide 1 MG/4 ML VIAL IVP SCH ×2 (05:26→13:55)
[2021-02-12] MEDS: Furosemide 40 MG/4 ML VIAL SLOW IVP SCH ×2 (05:26→13:54)
[2021-02-12] MEDS: Levothyroxine Sodium 75 MCG TAB PO SCH (05:26)
[2021-02-12] MEDS: HumaLOG 300 UNITS/3 ML VIAL SC PRN ×4 (06:07→20:19)
[2021-02-12] MEDS: Budesonide 0.5 MG/2 ML NEB NEB SCH ×2 (06:10→18:13)
[2021-02-12 06:46] LABS: Hemoglobin 10.9 g/dL (12.0-16.0); Mean Corpuscular HGB CONC 31.7 g/dL (32.0-36.0); Mean Corpuscular Hemoglobin 30.1 pg (27.0-31.0); Mean Corpuscular Volume 95.1 fL (78.0-98.0); Mean Platelet Volume 7.1 fL (7.4-10.4); Platelet Count 158 thou/uL (130-400); RBC Distribution Width 14.8 % (11.5-14.5); Red Blood Cell (RBC) Count 3.61 mill/uL (4.20-5.40); White Blood Cell (WBC) Count 7.6 thou/uL (4.8-10.8)
[2021-02-12 07:03] LABS: Anion Gap 11 mmol/L (10-20); BUN (Urea Nitrogen) 8 mg/dL (9.8-20.1); Calc. Creatinine Clearance 100 mL/min (70-130); Calcium 9.2 mg/dL (7.8-10.44); Carbon Dioxide 28 mmol/L (22-29); Chloride 105 mmol/L (98-107); Glucose 170 mg/dL (70-105); Magnesium 1.9 mg/dL (1.6-2.6); Potassium 3.6 mmol/L (3.5-5.1); Sodium 140 mmol/L (136-145)
[2021-02-12] MEDS ORDERED: Magnesium 2 GM/50 ML 2 GM in Premix Bag 1 BAG IVPB SCH (07:15)
[2021-02-12] MEDS: Apixaban 5 MG TAB PO SCH ×2 (08:16→20:17)
[2021-02-12] MEDS: Lisinopril 20 MG TAB PO SCH (08:16)
[2021-02-12 08:32] LABS: Band 5 % (5-11); Lymphocytes 21 % (21-51); MDiff Complete? YES; Monocytes 10 % (0-10); Neutrophil 64 % (42-75); Platelet Morphology Comment Appears Adequate; RBC Morphology Normal
[2021-02-12] MEDS ORDERED: Nitroglycerin 0.4 MG TAB (25 Tab Bottle) SL PRN (23:41)
[2021-02-13] MEDS: Vancomycin HCl 750 MG in Sodium Chloride 0.9% 250 ML 250 ML IVPB SCH (00:25)
[2021-02-13 00:31] LABS: Troponin I 0.013 ng/mL (< 0.028)
[2021-02-13] MEDS: Piperacillin/Tazobactam 3.375 GM in Sodium Chloride 0.9% 100 ML IVPB SCH ×4 (03:33→20:22)
[2021-02-13] MEDS: Levothyroxine Sodium 75 MCG TAB PO SCH (05:58)
[2021-02-13] MEDS: Bumetanide 1 MG/4 ML VIAL IVP SCH ×2 (05:59→14:46)
[2021-02-13] MEDS: Furosemide 40 MG/4 ML VIAL SLOW IVP SCH ×2 (05:59→14:46)
[2021-02-13] MEDS: HumaLOG 300 UNITS/3 ML VIAL SC PRN ×4 (06:24→20:27)
[2021-02-13 06:46] LABS: Band 4 % (5-11); Eosinophils 1 % (0-10); Hemoglobin 10.4 g/dL (12.0-16.0); Lymphocytes 20 % (21-51); MDiff Complete? YES; Mean Corpuscular HGB CONC 32.3 g/dL (32.0-36.0); Mean Corpuscular Hemoglobin 31.1 pg (27.0-31.0); Mean Corpuscular Volume 96.1 fL (78.0-98.0); Mean Platelet Volume 6.9 fL (7.4-10.4); Monocytes 11 % (0-10); Neutrophil 64 % (42-75); Platelet Count 167 thou/uL (130-400); Platelet Morphology Comment Appears Adequate; RBC Distribution Width 14.8 % (11.5-14.5); Red Blood Cell (RBC) Count 3.36 mill/uL (4.20-5.40); White Blood Cell (WBC) Count 8.7 thou/uL (4.8-10.8)
[2021-02-13 06:52] LABS: Anion Gap 12 mmol/L (10-20); BUN (Urea Nitrogen) 12 mg/dL (9.8-20.1); Calc. Creatinine Clearance 98 mL/min (70-130); Carbon Dioxide 29 mmol/L (22-29); Chloride 100 mmol/L (98-107); Glucose 218 mg/dL (70-105); Magnesium 2.1 mg/dL (1.6-2.6); Potassium 3.3 mmol/L (3.5-5.1); Sodium 138 mmol/L (136-145)
[2021-02-13] MEDS ORDERED: Potassium Chloride 20 MEQ TAB PO SCH ×2 (07:00→09:00)
[2021-02-13] MEDS: Budesonide 0.5 MG/2 ML NEB NEB SCH ×2 (07:11→18:42)
[2021-02-13] MEDS: Apixaban 5 MG TAB PO SCH ×2 (08:10→20:22)
[2021-02-13] MEDS: Lisinopril 20 MG TAB PO SCH (08:11)
[2021-02-13] MEDS: Phenazopyridine HCl 100 MG TAB PO SCH (18:40)
[2021-02-13 23:22] LABS: Vancomycin, Trough 19.1 ug/mL
[2021-02-14] MEDS: Vancomycin HCl 750 MG in Sodium Chloride 0.9% 250 ML 250 ML IVPB SCH (00:35)
[2021-02-14] MEDS: Piperacillin/Tazobactam 3.375 GM in Sodium Chloride 0.9% 100 ML IVPB SCH ×2 (02:52→17:25)
[2021-02-14] MEDS: HumaLOG 300 UNITS/3 ML VIAL SC PRN ×3 (05:50→16:47)
[2021-02-14] MEDS: Levothyroxine Sodium 75 MCG TAB PO SCH (05:50)
[2021-02-14] MEDS: Bumetanide 1 MG/4 ML VIAL IVP SCH ×2 (05:50→14:26)
[2021-02-14 06:36] LABS: Hemoglobin 10.5 g/dL (12.0-16.0); Mean Corpuscular HGB CONC 31.9 g/dL (32.0-36.0); Mean Corpuscular Hemoglobin 30.2 pg (27.0-31.0); Mean Corpuscular Volume 94.8 fL (78.0-98.0); Mean Platelet Volume 6.8 fL (7.4-10.4); Platelet Count 173 thou/uL (130-400); RBC Distribution Width 14.7 % (11.5-14.5); Red Blood Cell (RBC) Count 3.47 mill/uL (4.20-5.40); White Blood Cell (WBC) Count 8.1 thou/uL (4.8-10.8)
[2021-02-14 06:50] LABS: Anion Gap 12 mmol/L (10-20); BUN (Urea Nitrogen) 12 mg/dL (9.8-20.1); Calc. Creatinine Clearance 105 mL/min (70-130); Calcium 9.3 mg/dL (7.8-10.44); Carbon Dioxide 32 mmol/L (22-29); Chloride 98 mmol/L (98-107); Glucose 244 mg/dL (70-105); Potassium 3.4 mmol/L (3.5-5.1); Sodium 139 mmol/L (136-145)
[2021-02-14 06:53] LABS: Troponin I Less than 0.010 ng/mL (< 0.028)
[2021-02-14] MEDS: Budesonide 0.5 MG/2 ML NEB NEB SCH ×2 (07:10→18:54)
[2021-02-14 08:13] LABS: Band 3 % (5-11); Eosinophils 1 % (0-10); Lymphocytes 19 % (21-51); MDiff Complete? YES; Monocytes 6 % (0-10); Neutrophil 71 % (42-75); RBC Morphology Normal
[2021-02-14] MEDS: Apixaban 5 MG TAB PO SCH ×2 (08:29→21:46)
[2021-02-14] MEDS: Phenazopyridine HCl 100 MG TAB PO SCH ×3 (08:29→16:58)
[2021-02-14] MEDS: Lisinopril 20 MG TAB PO SCH (08:29)
[2021-02-14] MEDS ORDERED: Potassium Chloride 20 MEQ TAB PO SCH (09:30)
[2021-02-14] MEDS ORDERED: HumaLOG 300 UNITS/3 ML VIAL SC PRN (20:51)
[2021-02-15 06:23] LABS: Hemoglobin 10.5 g/dL (12.0-16.0); Mean Corpuscular Hemoglobin 30.7 pg (27.0-31.0); Mean Corpuscular Volume 95.7 fL (78.0-98.0); Mean Platelet Volume 6.8 fL (7.4-10.4); Platelet Count 183 thou/uL (130-400); RBC Distribution Width 14.7 % (11.5-14.5); Red Blood Cell (RBC) Count 3.41 mill/uL (4.20-5.40); White Blood Cell (WBC) Count 7.8 thou/uL (4.8-10.8)
[2021-02-15] MEDS: Budesonide 0.5 MG/2 ML NEB NEB SCH (06:30)
[2021-02-15 06:39] LABS: Anion Gap 9 mmol/L (10-20); BUN (Urea Nitrogen) 14 mg/dL (9.8-20.1); Calc. Creatinine Clearance 105 mL/min (70-130); Calcium 9.4 mg/dL (7.8-10.44); Carbon Dioxide 35 mmol/L (22-29); Chloride 96 mmol/L (98-107); Glucose 251 mg/dL (70-105); Potassium 3.3 mmol/L (3.5-5.1); Sodium 137 mmol/L (136-145)
[2021-02-15 06:44] LABS: Band 8 % (5-11); Lymphocytes 22 % (21-51); MDiff Complete? YES; Monocytes 7 % (0-10); Myelocyte 1 % (0-0); Neutrophil 61 % (42-75)
[2021-02-15] MEDS: Bumetanide 1 MG/4 ML VIAL IVP SCH (06:44)
[2021-02-15] MEDS: Levothyroxine Sodium 75 MCG TAB PO SCH (06:44)
[2021-02-15] MEDS: HumaLOG 300 UNITS/3 ML VIAL SC PRN ×2 (06:45→11:59)
[2021-02-15] MEDS ORDERED: Potassium Chloride 20 MEQ TAB PO SCH (07:00)
[2021-02-15 07:51] VITALS: BP 164/93; TEMP 98.7
[2021-02-15] MEDS: Lisinopril 20 MG TAB PO SCH (08:11)
[2021-02-15] MEDS: Apixaban 5 MG TAB PO SCH (08:11)
[2021-02-15] MEDS: Phenazopyridine HCl 100 MG TAB PO SCH (08:11)
== END 2021-02-15 12:15 | disposition swing bed (61) | DRG 871 ==
LOC: ERS 18:23 → CCU 21:45 → IMCU/EMU 02-10 14:21 → T4-A 02-11 18:46
PROVIDERS: ADMIT Student in an Organized Health Care Education/Training Program; ATTEND Internal Medicine
PROC: 5A1945Z Respiratory Ventilation, 24-96 Consecutive Hours (ICD-10-PCS; principal; 2021-02-05)
PROC: 05H633Z Insertion of Infusion Device into Left Subclavian Vein, Percutaneous Approach (ICD-10-PCS; 2021-02-05)
PROC: 3E033XZ Introduction of Vasopressor into Peripheral Vein, Percutaneous Approach (ICD-10-PCS; 2021-02-05)
PROC: 0D9670Z Drainage of Stomach with Drainage Device, Via Natural or Artificial Opening (ICD-10-PCS; 2021-02-07)
PROC: 5A09357 Assistance with Respiratory Ventilation, Less than 24 Consecutive Hours, Continuous Positive Airway Pressure (ICD-10-PCS; 2021-02-11)
DX: A41.51 Sepsis due to Escherichia coli [E. coli] (principal); J96.01 Acute respiratory failure with hypoxia; J18.9 Pneumonia, unspecified organism; G93.41 Metabolic encephalopathy; R65.21 Severe sepsis with septic shock; I13.0 Hypertensive heart and chronic kidney disease with heart failure and stage 1 through stage 4 chronic kidney disease, or unspecified chronic kidney disease; J44.0 Chronic obstructive pulmonary disease with (acute) lower respiratory infection; I50.32 Chronic diastolic (congestive) heart failure; N39.0 Urinary tract infection, site not specified; J98.11 Atelectasis; Z68.42 Body mass index [BMI] 45.0-49.9, adult; Z20.822 Contact with and (suspected) exposure to COVID-19; E11.22 Type 2 diabetes mellitus with diabetic chronic kidney disease; L89.302 Pressure ulcer of unspecified buttock, stage 2; N18.9 Chronic kidney disease, unspecified; E03.9 Hypothyroidism, unspecified; E66.01 Morbid (severe) obesity due to excess calories; G47.33 Obstructive sleep apnea (adult) (pediatric); F11.10 Opioid abuse, uncomplicated; I48.0 Paroxysmal atrial fibrillation; K74.60 Unspecified cirrhosis of liver; R31.0 Gross hematuria; R07.9 Chest pain, unspecified; Z88.8 Allergy status to other drugs, medicaments and biological substances; Z79.01 Long term (current) use of anticoagulants; Z79.890 Hormone replacement therapy; Z79.899 Other long term (current) drug therapy; Z86.19 Personal history of other infectious and parasitic diseases; Z91.19 Patient's noncompliance with other medical treatment and regimen; Z74.01 Bed confinement status; Z78.1 Physical restraint status; Z99.81 Dependence on supplemental oxygen
CPT/HCPCS: 0240U; 36415; 36416; 36556; 36600; 51702; 70450; 71045; 74018; 80048; 80053; 80202; 80306; 81001; 81003; 81015; 82550; 82805; 83605; 83735; 83880; 84484; 85007; 85025; 85027; 87040; 87077; 87086; 87149; 87186; 93005; 93010; 94002; 94003; 94640; 94660; 94760; 96365; 96368; 96374; 96375; C9113; J1815; J1940; J2060; J2270; J2405; J2543; J2704; J2765; J3010; J3370; J3475; J3490; J7050; J7620; J7626